=== PATIENT | male | born 1940 | race Caucasian/White ===

== ENCOUNTER 2022-08-23 13:27 | Outpatient (CLI) | payer MEDICARE, SELFPAY ==
--- NOTE | ~2022-08-23 | MR_ITS ---
EXAMINATION: MR brain/brain stem wo/w con DATE: 08/23/2022 16:11 INDICATION: Left hemiparesis. TECHNIQUE: Magnetic resonance imaging (MRI) of the brain and brainstem was performed without and with 15 mL MultiHance intravenous contrast. COMPARISON: None. FINDINGS: There is an acute infarct in the right medullary pyramid. There is an old infarct in left p arietal occipital region. There are scattered areas of nonspecific increased T2-weighted signal inten sity in the cerebral white matter and gio. There is no intracranial hemorrhage or abnormal mass lesi on. The ventricles are normal in size. There is mild mucosal thickening in the ethmoid sinuses. The o rbits are normal. The mastoid air cells are normal. IMPRESSION: 1. 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 2. 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 3. Mild nonspecific cerebral white matter disease and pontine disease, which likely represents chroni c small vessel ischemic disease. Reviewed, dictated and finalized at location A. AVEMENT PROGRAM COORDINATOR IMPRESSION: 1. 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 2. 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 3. Mild nonspecific cerebral white matter disease and pontine disease, which mega tamayo represents chronic small vessel ischemic disease.
--- NOTE | ~2022-08-23 | MR_ITS ---
EXAMINATION: MR cervical spine wo/w con DATE: 08/23/2022 16:11 INDICATION: Left hemiparesis. TECHNIQUE: Magnetic resonance imaging (MRI) of the cervical spine was performed without and with 15 m L MultiHance intravenous contrast. COMPARISON: None FINDINGS: There is 11 degrees dextroscoliosis of cervicothoracic spine. Vertebral body heights and in tervertebral disc heights are normal. The spinal cord signal intensity is normal. The following disc levels are specifically discussed: C2-C3: The disc does not extend beyond the endplate margin. There is no uncovertebral joint osteoarth ritis. There is mild bilateral facet joint osteoarthritis. There is no neural foraminal stenosis. The re is no central canal stenosis. C3-C4: The disc does not extend beyond the endplate margin. There is no uncovertebral joint osteoarth ritis. There is mild bilateral facet joint osteoarthritis. There is no neural foraminal stenosis. The re is no central canal stenosis. C4-C5: The disc does not extend beyond the endplate margin. There is no uncovertebral joint osteoarth ritis. There is mild bilateral facet joint osteoarthritis. There is no neural foraminal stenosis. The re is no central canal stenosis. C5-C6: There is a central protrusion. There is mild bilateral uncovertebral joint osteoarthritis. The re is mild bilateral facet joint osteoarthritis. There is mild left neural foraminal stenosis. There is no central canal stenosis. C6-C7: There is a central protrusion. There is mild right and moderate left uncovertebral joint osteo arthritis. There is mild left facet joint osteoarthritis. There is mild left neural foraminal stenosi s. There is mild central canal stenosis. C7-T1: The disc does not extend beyond the endplate margin. There is no uncovertebral joint osteoarth ritis. There is mild right and moderate left facet joint osteoarthritis. There is mild left neural fo raminal stenosis. There is no central canal stenosis. IMPRESSION: 1. Mild cervical spondylosis. 2. Cervicothoracic dextroscoliosis. Reviewed, dictated and finalized at location A. PATIONAL THERAPY ASSIST
== END 2022-08-23 13:28 | disposition home or self-care (01) ==
PROVIDERS: PCP Family Medicine; Visit Provider Psychiatry & Neurology Neurology
DX: I63.9 Cerebral infarction, unspecified (principal); M47.812 Spondylosis without myelopathy or radiculopathy, cervical region; M41.9 Scoliosis, unspecified
CPT/HCPCS: 70553; 72156; A9577

== ENCOUNTER 2023-05-09 10:31 | Outpatient (CLI) | payer MEDICARE, SELFPAY ==
--- NOTE | ~2023-05-09 | CT_ITS ---
CT Scan of the Chest without Contrast: Clinical Indication: Pulmonary nodules Technique: Contiguous sections were acquired throughout the chest without intravenous contrast. Dose reduction technique was used on this scan by utilizing automated exposure control and iterative recon struction technique. The dose-length product (DLP) was 154.40 mGy-cm. Findings: There is no evidence of any significant mediastinal, hilar or axillary lymphadenopathy. There are ath erosclerotic calcifications of the aorta. Patient is status post aortic valve replacement and possibl e CABG. Ascending aorta is mildly dilated to 4.5 cm. There is no evidence of pleural or pericardial effusion. 4 mm right lower lobe pulmonary nodule noted. 4 mm left lower lobe pulmonary nodules are present (axi al image 63). Images through the upper abdomen reveal small calcified gallstone. Impression: Subcentimeter pulmonary nodules, as above. According to Fleischner Society criteria, for a low-risk p atient, no further follow-up required. For a high-risk patient, consider 12 month follow-up CT. Ascending aortic aneurysm measures 4.5 cm in diameter. Status post aortic valve replacement and possible CABG. Cholelithiasis. Reviewed, dictated and finalized at location M. Impression: Subcentimeter pulmonary nodules, as above. According to Fleischner Society liv burks, for a low-risk patient, no further follow-up required. For a high-risk pa tient, consider 12 month follow-up CT. Ascending aortic aneurysm measures 4.5 cm in diameter. Status post aortic valve replacement and possible CABG. Cholelithiasis.
== END 2023-05-09 10:32 | disposition home or self-care (01) ==
PROVIDERS: PCP Family Medicine; Visit Provider Family Medicine
DX: R93.1 Abnormal findings on diagnostic imaging of heart and coronary circulation (principal); R91.8 Other nonspecific abnormal finding of lung field; R91.1 Solitary pulmonary nodule; I71.21 Aneurysm of the ascending aorta, without rupture; Z95.4 Presence of other heart-valve replacement; K80.20 Calculus of gallbladder without cholecystitis without obstruction
CPT/HCPCS: 71250

== ENCOUNTER 2024-11-05 10:40 | Outpatient (CLI) | payer MEDICARE, SELFPAY ==
--- NOTE | ~2024-11-05 | XR_ITS ---
EXAMINATION: XR chest 2V DATE: 11/05/2024 11:06 INDICATION: Cough TECHNIQUE: PA and lateral views of the chest were obtained. COMPARISON: Chest CT dated 05/09/2023 FINDINGS: The lungs are clear with no focal airspace opacities, pulmonary edema, pleural effusion or pneumothor ax. The cardiomediastinal silhouette is normal. Median sternotomy wires and mediastinal surgical clip s are seen, likely from prior coronary artery bypass grafting. Aortic valve repair. IMPRESSION: 1. No acute cardiopulmonary disease. Reviewed, dictated and finalized at location A. OLOGY RESIDENT
== END 2024-11-05 10:41 | disposition home or self-care (01) ==
PROVIDERS: PCP Family Medicine; Visit Provider Physician Assistant Medical
DX: R05.9 Cough, unspecified (principal); R09.89 Other specified symptoms and signs involving the circulatory and respiratory systems
CPT/HCPCS: 71046

== ENCOUNTER 2024-12-08 10:10 | Outpatient (CLI) | payer MEDICARE, SELFPAY ==
--- NOTE | ~2024-12-08 | CT_ITS ---
EXAMINATION:CT diagnostic chest wo con DATE: 12/08/2024 10:28 INDICATION: Right upper lobe lung consolidation. TECHNIQUE: Computed tomography (CT) of the chest was performed without intravenous contrast. Automate d exposure control and iterative reconstruction technique were employed. The dose-length product (DLP ) was 369.52 mGy-cm. COMPARISON: Chest CT 05/09/2023 FINDINGS: There is mild emphysema. There is chronic peripheral septal thickening in right lower lobe. There is mucous plugging in right lower lobe. There is a small area of groundglass opacities and adan e-in-bud opacities in right upper lobe. There is a 3 mm nodule in right upper lobe, likely benign. Th ere is a chronic 4 mm nodule in right lower lobe, likely benign. No pleural effusion. There is left a trial enlargement of the heart. There are coronary artery calcifications. 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 There are changes of aortic valve replacement. There is ectasia of ascendi ng aorta measuring 4.6 cm . There is mild bilateral gynecomastia. There is a gallstone in the gallbla dder, which is normal in size. There is a 3.1 cm cyst in left kidney. There is thoracic levoscoliosis . There is mild thoracic spondylosis. IMPRESSION: 1. Small area of groundglass opacities and tree-in-bud opacities in right upper lobe, consistent with inflammation/infection. 2. Mild emphysema. Reviewed, dictated and finalized at location A. HETIC RESIN OPERATOR
--- OUTSIDE RECORDS SUMMARY | 2024-12-08 11:48 | XMS_ITS | Clinical Summary ---
Author Organization [facility] Address [address] [place] [id number] Care Team Providers Care Fence Setter Name Role Phone Unavailable Primary Care Provider Unavailabl e Social History Tobacco Use Types Packs/Day Years Used Date Smoking Tobacco: Never Assessed Sex and Gender Information Value Date Recorded Sex Assigned at Not on file Legal Sex Male 4:53 PM CDT Gender Identity Not on file Sexual Orientation Not on file Plan of Treatment Health Maintenance Due Date Last Done Comments DTaP, Tdap and Td Vaccines ( 1 - Tdap) 1959 Zoster Vaccines (1 of 2) 1990 Pneumococcal Vaccine: 65+ Ye ars (1 of 1 - PCV) 2005 RSV Immunization or 60+ Years (1 - 1-dose 75+ series) 2015 COVID-19 Vaccine (2023-2 5 season) 2024 Influenza Adult (#1) 2024 Meningococcal B Vaccine Aged Out No l onger eligible based on patient's age to complete this topic Meningococcal Vaccine Aged Out No lenore lorraine eligible based on patient's age to complete this topic RSV Immunizations Under 20 Months Aged Out No longer eligible based on patient's age to complete this topic
--- OUTSIDE RECORDS SUMMARY | 2024-12-08 11:49 | XMS_ITS | Referral Summary ---
Author Organization [facility] Address [address] [place] [address] Care Team Providers Care Head Of Music Name Role Phone Fazal Davis MD Primary Care Provider [phone] Source Comments [facility] Affiliates and Associated Physician Practices is amultiple site organization consisting of ambulatory clinics and hospital sitesin [place], [place], [place] and [place]. This disclosure is being madepursuant to the Care Everywhere program and may not contain all information available regarding this patient. Last updated 18.[facility] [employer] Allergies Active Allergy Reactions Criticality Noted Date Comments Penicillin G Proc & Benzathine Rash Medium 03/26 Penicillins Rash Medium 04/09/2018 Medications * Be aware that medications may not be up to date on this document. Alwaysverify current medications with the patient. Medication Sig Dispensed Refills Start Date End Date Status rosuvastatin (CRESTOR) 20 MG tablet Take 1 (one) tablet by mouth once daily 03/16/2018 Active nitroGLYCERIN (NITROLINGUAL) 0.4 MG/SPRAY spray Dissolve 1 spray under the tongue every 5 minutes as needed for Angina Active ubiquinine/vitamin- e (COENZYME Q10) 200 MG capsule Take 200 mg by mouth once daily Active clopidogrel (plaVIX) 75 MG tablet Take 1 (one) tablet by mouth once daily Active aspirin EC (Ecotrin) 81 MG tablet Take 1 (one) tablet by mouth at bedtime Active Vitamin E (E200) 90 MG (200 UNIT) CAPS Take 1 (one) capsule by mouth at bedtime Active cyanocobalamin (Vitamin B-12) 1000 MCG tablet Take 1 (one) tablet by mouth at bedtime Active traMADol (Ultram) 50 MG tablet Take 1 (one) tablet by mouth every 8 hours as needed for Pain 8 tablet 09/05/2023 Active Additional Information Patient not taking.Reported on 09/16/2023 Active Problems Problem Noted Date Diagnosed Date Fall 09/05/2023 Scalp laceration 09/05/2023 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 Overview (02/27/2024): Last Assessment & Plan: Stable status post TAVR, asymptomatic. Continue same therapy. 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 Continue same therapy. Continue diet and exercise. Hypercholesteremia 01/06/2018 Overview (07/04/2021): Last Assessment & Plan: Lipids are well controlled. Continue high-intensity statin therapy. PVD (peripheral vascular disease) 01/06/2018 Overview (07/04/2021): Last Assessment & Plan: Stable claudication. As above, I resumed Plavix 75 mg daily. Otherwise, continue same therapy. Continue diet and exercise. Discontinue smoking. Chronic obstructive pulmonary disease 09/17/2016 Overview (07/04/2021): Chronic obstructive pulmonary disease, unspecified COPD type Last Assessment & Plan: Mild, has tried inhalers in the past and did not feel they benefitted him Will reassess one year, if breathing problems call us to reevaluate Yearly flu shot Multiple pulmonary nodules 09/17/2016 Overview (07/04/2021): 10/21/[address] All nodule stable All nodules 4 mm or less in size Last Assessment & Plan: 10/21/[address] All nodule stable All nodules 4 mm or less in size Nonrheumatic aortic valve stenosis 01/03/2016 Overview (07/04/2021): Aortic stenosis, non-rheumatic Last Assessment & Plan: Stable, moderate aortic stenosis only. Continue same therapy. 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 I made no change in his excellent medical regimen today, except to resume Plavix 75 mg daily and I decreased aspirin to 81 mg daily. I asked him to follow up with me annually, or sooner if needed. I again advised him to diet and exercise regularly, and to stop smoking completely. Resolved Problems Problem Noted Date Diagnosed Date Resolved Date Unsteady gait 09/10/2022 09/10/2022 Immunizations Name Administration Dates Next Due TDAP (7yrs+) 09/05/2023 Social History Tobacco Use Types Packs/Day Years Used Date Smoking Tobacco: Every Day Cigarettes Smokeless Tobacco: Never Tobacco Cessation:Ready to Q uit: Not Asked; Counseling Given: Not Answered Alcohol Use Standard Drinks/Week Comments No 0 (1 standard drink = 0.6 oz pur e alcohol) AUDIT-C Answer Date Recorded Q1: How often do you have a drink containing alcohol? Never 09/05/2023 Q2: How many drinks containi ng alcohol do you have on a typical day when you are drinking? Patient does not drink Q3: How often do you have si x or more drinks on one occasion? Never 09/05/2023 PHQ-2 Answer Date Recorded Patient Health Questionnaire-2 Score 0 09/16/2023 Sex and Gender Information Value Date Recorded Sex Assigned at Not on file Gender Identity Not on file Sexual Orientation Not on file Last Filed Vital Signs Vital Sign Reading Time Taken Comments Blood Pressure 124/64 09/16/2023 12:26 PM UNDERWRITING MANAGER Pulse 58 09/16/2023 12:26 PM UNDERWRITING MANAGER Temperature 36.5 C (97.7 F) 09/05/2023 2:28 PM UNDERWRITING MANAGER Respiratory Rate 18 09/05/2023 2:28 PM UNDERWRITING MANAGER Oxygen Saturation 95% 09/16/2023 12:26 PM UNDERWRITING MANAGER Inhaled Oxygen Concentration - - Weight 82.8 kg (182 lb 9.6 oz) 09/16/2023 12:26 PM UNDERWRITING MANAGER Height 172.7 cm (5' 8 ) 09/05/2023 2:28 PM UNDERWRITING MANAGER Body Mass Index 27.76 09/05/2023 2:28 PM UNDERWRITING MANAGER Plan of Treatment Not on file Care Teams Head Of Music Relationship Specialty Start Date End Date Fazal Davis MD [address] [place] [address] PCP - General 03/12/18
--- OUTSIDE RECORDS SUMMARY | 2024-12-08 11:49 | XMS_ITS | Patient Health Summary ---
Author Organization [facility] Address [address] [place] [address] Care Team Providers Care Fryer Operator Name Role Phone Fazal Davis MD Primary Care Provider [phone] Note from [facility],non-owned Affiliates and Associated Physician Practices is amultiple site organization consisting of ambulatory clinics and hospital sitesin [place], [place], [place] and [place]. This disclosure is being madepursuant to the Care Everywhere program and may not contain all information available regarding this patient. Last updated 18.[facility] Allergies * Penicillin G Proc & Benzathine(Rash) -Medium Criticality * Penicillins(Rash) -Medium Criticality Medications * Be aware that medications may not be up to date on this document. Alwaysverify current medications with the patient. * rosuvastatin (CRESTOR) 20 MG tablet(Started 03/16/2018) Take 1 (one) tablet by mouth once daily * nitroGLYCERIN (NITROLINGUAL) 0.4 MG/SPRAY spray Dissolve 1 spray under the tongue every 5 minutes as needed for Angina * ubiquinine/vitamin-e (COENZYME Q10) 200 MG capsule Take 200 mg by mouth once daily * clopidogrel (plaVIX) 75 MG tablet Take 1 (one) tablet by mouth once daily * aspirin EC (Ecotrin) 81 MG tablet Take 1 (one) tablet by mouth at bedtime * Vitamin E (E200) 90 MG (200 UNIT) CAPS Take 1 (one) capsule by mouth at bedtime * cyanocobalamin (Vitamin B-12) 1000 MCG tablet Take 1 (one) tablet by mouth at bedtime * traMADol (Ultram) 50 MG tablet(Started 09/05/2023) Take 1 (one) tablet by mouth every 8 hours as needed for Pain Active Problems Problem Noted Date Diagnosed Date Fall 09/05/2023 Scalp laceration 09/05/2023 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 Cerebral infarction, unspecified 09/10/2022 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 05/22/2019 Essential hypertension, benign 01/06/2018 Hypercholesteremia 01/06/2018 PVD (peripheral vascular disease) 01/06/2018 Chronic obstructive pulmonary disease 09/17/2016 Multiple pulmonary nodules 09/17/2016 Nonrheumatic aortic valve stenosis 01/03/2016 Tobacco dependence syndrome 08/24/2015 Mediastinal lymphadenopathy 08/24/2015 Coronary arteriosclerosis in [place] artery 01/22 Resolved Problems Problem Noted Date Diagnosed Date Resolved Date Unsteady gait 09/10/2022 09/10/2022 Immunizations * TDAP (7yrs+)(Given 09/05/2023) Social History Tobacco Use Types Packs/Day Years [...] Comments Blood Pressure 124/64 09/16/2023 12:26 PM DATA PROCESSING SUPERVISOR Pulse 58 09/16/2023 12:26 PM DATA PROCESSING SUPERVISOR Temperature 36.5 C (97.7 F) 09/05/2023 2:28 PM DATA PROCESSING SUPERVISOR Respiratory Rate 18 09/05/2023 2:28 PM DATA PROCESSING SUPERVISOR Oxygen Saturation 95% 09/16/2023 12:26 PM DATA PROCESSING SUPERVISOR Inhaled Oxygen Concentration - - Weight 82.8 kg (182 lb 9.6 oz) 09/16/2023 12:26 PM DATA PROCESSING SUPERVISOR Height 172.7 cm (5' 8 ) 09/05/2023 2:28 PM DATA PROCESSING SUPERVISOR Body Mass Index 27.76 09/05/2023 2:28 PM DATA PROCESSING SUPERVISOR Procedures * PROC EXCISION LESION TRUNK ARM LEG MALIG(Performed 02/27/2024) Performed for Basal cell carcinoma (BCC) of right forearm, Basal cell carcinoma (BCC) of right upper arm * MA EXC SKIN MALIG 2.1-3CM TRUNK,ARM,LEG(Performed 02/27/2024) Performed for Basal cell carcinoma (BCC) of right forearm * MA INTMD WND REPAIR TRUNK,ARM,LEG 7.6-12.5(Performed 02/27/2024) Performed for Basal cell carcinoma (BCC) of right forearm * MA EXC SKIN MALIG 2.1-3CM TRUNK,ARM,LEG(Performed 02/27/2024) Performed for Basal cell carcinoma (BCC) of right forearm * DERMATOPATHOLOGY(Performed 02/27/2024) Performed for Basal cell carcinoma (BCC) of right forearm, Basal cell carcinoma (BCC) of right upper arm * CT CERVICAL SPINE WO CONTRAST(Performed 09/05/2023) Performed for Fall, initial encounter * CT HEAD WO CONTRAST(Performed 09/05/2023) Performed for Fall, initial encounter * ED LACERATION REPAIR(Performed 09/05/2023) Performed for Laceration of scalp, initial encounter * MA CHMSRG MOHS MG TQ H/N/H/F/G 1ST STAG 5 BLOC(Performed 12/11/2022) Performed for Basal cell carcinoma (BCC) of right postauricular region * MA CHMSRG MOHS MG TQ H/N/H/F/G EA ADDL STAG(Performed 12/11/2022) Performed for Basal cell carcinoma (BCC) of right postauricular region * MA REPR CMPL WND HEAD,FAC,HAND 2.6-7.5(Performed 12/11/2022) Performed for Basal cell carcinoma (BCC) of right postauricular region * MA CHMSRG MOHS MG TQ H/N/H/F/G 1ST STAG 5 BLOC(Performed 05/01/2022) Performed for 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 hand * MA REPR CMPL WND HEAD,FAC,HAND 2.6-7.5(Performed 05/01/2022) Performed for 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 hand * MA CHMSRG MOHS MG TQ H/N/H/F/G 1ST STAG 5 BLOC(Performed 04/18/2022) Performed for Basal cell carcinoma (BCC) of crown * CBC W AUTO DIFFERENTIAL(Performed 01/20/2022) Performed for Vertigo * COMPREHENSIVE METABOLIC PANEL(Performed 01/20/2022) Performed for Vertigo * MA EXC SKIN MALIG 2.1-3CM REMAINDR BODY(Performed 09/12/2021) Performed for Melanoma of scalp (HCC) * DERMATOPATHOLOGY(Performed 09/12/2021) Performed for Melanoma of scalp (HCC) * MA CHMSRG MOHS MG TQ H/N/H/F/G 1ST STAG 5 BLOC(Performed 08/30/2021) 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 * MA CHMSRG MOHS MG TQ H/N/H/F/G EA ADDL STAG(Performed 08/30/2021) 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 * MA FULL THICK GRFT NOS,EAR,LID <20SQCM(Performed 08/30/2021) 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 * MA EXC SKIN MALIG 3.1-4CM FACE,FACIAL(Performed 08/29/2021) Performed for Melanoma of scalp (HCC) * PROC EXCISION SKIN FACE FACIAL MALIGNANT(Performed 08/29/2021) Performed for Melanoma of scalp (HCC) * DERMATOPATHOLOGY(Performed 08/29/2021) Performed for Melanoma of scalp (HCC) * PATHOLOGY/CYTOLOGY REPORT ORDER(Performed 08/29/2021) * CULTURE AEROBIC(Performed 07/21/2021) 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 * MA CHMSRG MOHS MG TQ H/N/H/F/G 1ST STAG 5 BLOC(Performed 07/11/2021) Performed for Basal cell carcinoma (BCC) of left side of neck * MA REPR CMPL WND HEAD,FAC,HAND 2.6-7.5(Performed 07/11/2021) Performed for Basal cell carcinoma (BCC) of left side of neck * CULTURE AEROBIC(Performed 07/11/2021) Performed for Basal cell carcinoma (BCC) of left side of neck * MA CHMSRG MOHS MG TQ H/N/H/F/G 1ST STAG 5 BLOC(Performed 07/04/2021) 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 * MA CHMSRG MOHS MG TQ H/N/H/F/G EA ADDL STAG(Performed 07/04/2021) 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 * DERMPATH SLIDE CONSULT(Performed 06/15/2021) * MA CHMSRG MOHS MG TQ H/N/H/F/G 1ST STAG 5 BLOC(Performed 09/28/2020) Performed for Basal cell carcinoma (BCC) of neck * MA CHMSRG MOHS MG TQ H/N/H/F/G EA ADDL STAG(Performed 09/28/2020) Performed for Basal cell carcinoma (BCC) of neck * MA REPR CMPL WND HEAD,FAC,HAND 2.6-7.5(Performed 09/28/2020) Performed for Basal cell carcinoma (BCC) of neck * SARS-COV-2 (COVID-19) IN HOUSE(Performed 09/11/2020) Performed for Upper respiratory tract infection, unspecified type * SARS-COV-2 (COVID-19) PANEL (SOIL)(Performed 09/11/2020) Performed for Upper respiratory tract infection, unspecified type * MA CHMSRG MOHS MG TQ H/N/H/F/G 1ST STAG 5 BLOC(Performed 09/05/2020) Performed for Squamous cell carcinoma of skin of other parts of face , Squamous cell carcinoma of skin * MA CHMSRG MOHS MG TQ H/N/H/F/G EA ADDL STAG(Performed 09/05/2020) Performed for Squamous cell carcinoma of skin of other parts of face , Squamous cell carcinoma of skin * MA REPR CMPL WND HEAD,FAC,HAND 2.6-7.5(Performed 09/05/2020) Performed for Squamous cell carcinoma of skin of other parts of face , Squamous cell carcinoma of skin * MA CHMSRG MOHS MG TQ H/N/H/F/G 1ST STAG 5 BLOC(Performed 05/19/2019) Performed for Basal cell carcinoma (BCC) of left ear * MA FULL THICK GRFT NOS,EAR,LID <20SQCM(Performed 05/19/2019) Performed for Basal cell carcinoma (BCC) of left ear * DERMPATH SLIDE CONSULT(Performed 09/23/2018) * MA CHMSRG MOHS MG TQ H/N/H/F/G 1ST STAG 5 BLOC(Performed 09/22/2018) Performed for Squamous cell carcinoma of skin of helix, left * MA CHMSRG MOHS MG TQ H/N/H/F/G EA ADDL STAG(Performed 09/22/2018) Performed for Squamous cell carcinoma of skin of helix, left * MA FULL THICK GRFT NOS,EAR,LID <20SQCM(Performed 09/22/2018) Performed for Squamous cell carcinoma of skin of helix, left * MA REPR CMPL WND HEAD,FAC,HAND 2.6-7.5(Performed 04/18/2018) Performed for Basal cell carcinoma of left cheek * MA CHMSRG MOHS MG TQ H/N/H/F/G 1ST STAG 5 BLOC(Performed 04/18/2018) Performed for Basal cell carcinoma of left cheek * DERMATOPATHOLOGY(Performed 03/08/2016) * PATHOLOGY/GENETICS HISTORICAL-ONBASE(Performed 04/13/2011) * DERMATOPATHOLOGY(Performed 03/23/2011) Results * PROC EXCISION LESION TRUNK ARM LEG MALIG (02/27/2024 2:17 PM CDT) [facility] Kendra Underwood MD - 02/27/2024 2:17 PM CDT Kendra Underwood MD 02/28/2024 4:55 PM Elliptical Excision with Intermediate Closure Date of Service: 02/27/2024 Tumor Type: Basal cell carcinoma Location: Right distal tricep Derm-Path Lesion Size: 1.5 X 1.5 cm Repair Type: intermediate Repair Size: 5.2 cm Suture Material: 4-0 monocryl and 4-0 PDS Level of Defect: adipose Surgical Margins: 0.5 Primary Surgeon: Kendra Underwood MD Automatic Teller Machine Servicer: N/A INDICATIONS: The risks of bleeding, infection, discomfort, incomplete removal, and scar formation were explained to the patient. All questions were answered. After informed consent, confirmation of site and identity, and appropriate instructions, the patient underwent the procedure as follows: PROCEDURE: With the patient in a supine position, the lesion was outlined with 0.5 cm margins measuring 2.5 x 2.5 cm. An ellipse was designed around the lesion to conform to relaxed skin tension lines in an effort to minimize scarring and deformity. The patient was then positioned on the table. The lesion and surrounding skin were prepped with chlorhexidine, draped, and anesthetized with 1% lidocaine with epinephrine 1:100,100 buffered with 1:10 sodium bicarbonate. Using a #15 blade the skin was excised along premarked lines. The resulting defect extended to adipose. Wound margins were undermined to limit functional deformity/impairment of adjacent structures. Bleeding vessels were controlled with monopolar electrocoagulation. The dermis and subcutaneous tissue were closed with buried vertical mattress sutures. Epidermal approximation was meticulously refined with 4-0 monocryl sutures, resulting in a linear closure with little to no wound tension. Blood loss was estimated to be less than 5cc. The area was coated with petrolatum and covered with a non-adherent dressing followed by gauze and tape. Postoperative instructions were reviewed per protocol. The patient left alert and fully oriented. The attending physician was present and always immediately available. No postoperative medications were prescribed. The patient will follow up with their primary underwriting technician. Dr. Underwood performed the entire surgery, and documentation used to initiate this operative report. I entered the information in our [employer] DocFlowsheet with the information provided by Dr. Underwood on her handwritten, paper format, surgical worksheet, which was then used to initiate the create of this note. Dr. Underwood then reviewed and edited the note as needed to complete the note. Mercedes Plascencia MA I have reviewed the note, edited it as necessary and performed the entire procedure. Kendra Underwood MD Classroom Technology Coach 02/27/2024 Kendra Underwood MD PROCEDURE/MINOR SURG ICAL ORDERABLES * MA EXC SKIN MALIG 2.1-3CM TRUNK,ARM,LEG, MA INTMD WND REPAIR TRUNK,ARM,LEG 7.6-12.5, MA EXC SKIN MALIG 2.1-3CM TRUNK,ARM,LEG (02/27/2024 1:40 PM CDT) Narrative Kendra Underwood MD - 02/27/2024 1:40 PM CDT Kendra Underwood MD 02/28/2024 4:56 PM Elliptical Excision with Intermediate Closure Date of Service: 02/27/2024 Tumor Type: Basal cell carcinoma Location: Right prox. Dorsal forearm Derm-Path Lesion Size: 1.2 X 1.2 cm Repair Type: intermediate Repair Size: 5.5 cm Suture Material: 4-0 monocryl and 4-0 PDS Level of Defect: adipose Surgical Margins: 0.5 Primary Surgeon: Kendra Underwood MD Automatic Teller Machine Servicer: N/A INDICATIONS: The risks of bleeding, infection, discomfort, incomplete removal, and scar formation were explained to the patient. All questions were answered. After informed consent, confirmation of site and identity, and appropriate instructions, the patient underwent the procedure as follows: PROCEDURE: With the patient in a supine position, the lesion was outlined with 0.5 cm margins measuring 2.2 x 2.2 cm. An ellipse was designed around the lesion to conform to relaxed skin tension lines in an effort to minimize scarring and deformity. The patient was then positioned on the table. The lesion and surrounding skin were prepped with chlorhexidine, draped, and anesthetized with 1% lidocaine with epinephrine 1:100,100 buffered with 1:10 sodium bicarbonate. Using a #15 blade the skin was excised along premarked lines. The resulting defect extended to adipose. Wound margins were undermined to limit functional deformity/impairment of adjacent structures. Bleeding vessels were controlled with monopolar electrocoagulation. The dermis and subcutaneous tissue were closed with buried vertical mattress sutures. Epidermal approximation was meticulously refined with 4-0 monocryl sutures, resulting in a linear closure with little to no wound tension. Blood loss was estimated to be less than 5cc. The area was coated with petrolatum and covered with a non-adherent dressing followed by gauze and tape. Postoperative instructions were reviewed per protocol. The patient left alert and fully oriented. The attending physician was present and always immediately available. No postoperative medications were prescribed. The patient will follow up with their primary underwriting technician. Dr. Underwood performed the entire surgery, and documentation used to initiate this operative report. I entered the information in our Epic DocFlowsheet with the information provided by Dr. Underwood on her handwritten, paper format, surgical worksheet, which was then used to initiate the create of this note. Dr. Underwood then reviewed and edited the note as needed to complete the note. Mercedes Plascencia MA I have reviewed the note, edited it as necessary and performed the entire procedure. Kendra Underwood MD Classroom Technology Coach 02/27/2024 Kendra Underwood MD PROCEDURE/MINOR SURG ICAL ORDERABLES * DERMATOPATHOLOGY (02/27/2024 1:19 PM CDT) Only the most recent of5 resultswithin the time period is included. Case Report Dermatopathology Report Case: [id number] Authorizing Provider: Kendra Underwood MD Collected: 02/27/2024 01:19 PM Ordering Location: [facility] - Received: 02/28/2024 11:41 AM Dermatology Pathologist: Amparo Lorenzo MD Specimens: A) - Skin, right dorsal forearm B) - Skin, right distal tricep 1:47 PM CDT DERMATOPATHOLOGY LABORATORY Final Diagnosis Specimen A. SKIN, right dorsal forearm: SQUAMOUS PROLIFERATION, NOT PRESENT AT MARGIN (D48.5) DERMAL SCAR RESIDUAL BASAL CELL CARCINOMA NOT IDENTIFIED (L90.5) (see microscopic description and comment) Specimen B. SKIN, right distal tricep: BASAL CELL CARCINOMA, KERATOTIC TYPE (C44.612) NOT PRESENT AT MARGIN HEALING SKIN CHANGES AND DERMAL SCAR (L90.5) (see microscopic description and comment) 1:47 PM CDT DERMATOPATHOLOGY LABORATORY Clinical History A: r/o BCC vs. Scar. Check margins, prior biopsy. B: r/o BCC. Check margins, prior biopsy. 1:47 PM CDT DERMATOPATHOLOGY LABORATORY Gross Description Specimen A: Received is one formalin filled container labeled with the patient's name and designated right dorsal forearm.The specimen consists of an ellipse measuring [id number] mm and is oriented with the suture/notch at the 12 o'clock position labeled on the requisition. The 12 to 6 o'clock margin is inked green. The 6 o'clock to 12 o'clock margin is inked red. The 12 o'clock tip is submitted in cassette 1. The 6 o'clock tip is submitted in cassette 2. The remainder of the ellipse is serially sectioned and submitted in cassettes 3-4. Jar 0. Specimen B: Received is one formalin filled container labeled with the patient's name and designated right distal tricep.The specimen consists of an ellipse measuring [id number] mm and is oriented with the suture/notch at the 12 o'clock position labeled on the requisition. The 12 to 6 o'clock margin is inked green. The 6 o'clock to 12 o'clock margin is inked red. The 12 o'clock tip is submitted in cassette 1. The 6 o'clock tip is submitted in cassette 2. The remainder of the ellipse is serially sectioned and submitted in cassettes 3-4. Jar 0. 4 1:47 PM CDT DERMATOPATHOLOGY LABORATORY Microscopic Description Specimen A. SKIN, right dorsal forearm: Sections show maturational disarray and nuclear pleomorphism of intraepidermal keratinocytes extending throughout the epidermis in association with scar. Focal endophytic features are present. There is focal parakeratosis. These changes are not present at the margin of the specimen. There are fibroblasts and collagen bundles oriented parallel to the skin surface with elongated blood vessels, some of which are oriented perpendicular to the skin surface. No basal cell carcinoma is identified. COMMENT: The prior biopsy is unavailable for review. These histologic features can be seen in the setting of healing skin changes with focal tangential sectioning; however, a squamous cell carcinoma cannot be excluded. This specimen was also reviewed by Dr. Zuleyma Bailey, who agrees. Specimen B. SKIN, right distal tricep: The dermis is infiltrated by nests of basaloid cells that show peripheral palisading and are associated with fibromyxoid stroma. Both mitotic figures and necrotic cells are identified. There are also areas with squamous differentiation and keratinization within the nests. This lesion is not present at the margin of the specimen. There is epidermal hyperplasia beneath which there are vascular proliferation, fibroblasts, and an edematous stroma. There are fibroblasts and collagen bundles oriented parallel to the skin surface with elongated blood vessels, some of which are oriented perpendicular to the skin surface. COMMENT: The prior biopsy is unavailable for review. 4 1:47 PM CDT DERMATOPATHOLOGY LABORATORY Disclaimer An external and internal positive and negative controls are appropriate for the histochemical, immunohistochemical and immunofluorescence stain(s) in this case (if any), except where stated explicitly. The performance characteristics of the stain(s) cited in this report were developed and its performance characteristic determined by the Dermatopathology Laboratory at [facility], directed by Dr. Juan Song. These tests need not be, and therefore are not, approved by the [place] Food and Drug Administration. The tests are used for clinical purposes. Billing Codes Specimen Charges Stain Charges 98082 [id number] 1 1 4 1:47 PM CDT DERMATOPATHOLOGY LABORATORY Embedded Images 4 1:47 PM CDT DERMATOPATHOLOGY LABORATORY Pathology/Cytology TISSUE SPECIMEN FROM SKIN / Unknown 02/27/2024 1:19 PM CDT 02/28/2024 11:41 AM CDT Miscellaneous samples (specimen) TISSUE SPECIMEN FROM SKIN / Unknown 02/27/2024 1:19 PM CDT 02/28/2024 11:41 AM CDT Kendra Underwood MD LAB - PATHOLOGY/CYTO LOGY ORDERABLES DERMATOPATHOLOGY LABORATORY [facility] - Department of Dermatology [address], [address] [phone] * CT CERVICAL SPINE WO CONTRAST (09/05/2023 3:20 PM DATA PROCESSING SUPERVISOR) Anatomical Region Laterality Modality Spine Computed Tomogra phy 09/05/2023 3:38 PM DATA PROCESSING SUPERVISOR Impressions 09/05/2023 3:39 PM DATA PROCESSING SUPERVISOR IMPRESSION: Degenerative changes. No fracture or cord compression. > Interpreting Provider: Gregg Bonilla MD on 09/05/2023 3:39 PM Narrative 09/05/2023 3:39 PM DATA PROCESSING SUPERVISOR PROCEDURE: CT CERVICAL SPINE WO CONTRAST 09/05/2023 3:38 PM HISTORY: [id number].XXXA: Unspecified fall, initial encounter. FINDINGS AND IMPRESSION: COMPARISON: No comparison. CT dose reduction technique was utilized. No acute fracture, dislocation or destructive process. No evidence of canal stenosis or cord compression. C1-C2 articulation is unremarkable. Pedicles and paraspinal soft tissue structures are normal. Prevertebral soft tissue structures appear unremarkable. Multilevel facet degeneration. Multilevel foraminal stenosis. Cervical spondylosis. Normal lung apices. Procedure Note Gregg Bonilla MD - 09/05/2023 PROCEDURE: CT CERVICAL SPINE WO CONTRAST 09/05/2023 3:38 PM HISTORY: [id number]: Unspecified fall, initial encounter. FINDINGS AND IMPRESSION: COMPARISON: No comparison. CT dose reduction technique was utilized. No acute fracture, dislocation or destructive process. No evidence of canal stenosis or cord compression. C1-C2 articulation is unremarkable. Pedicles and paraspinal soft tissue structures are normal. Prevertebral soft tissue structures appear unremarkable. Multilevel facet degeneration. Multilevel foraminal stenosis. Cervical spondylosis. Normal lung apices. IMPRESSION: Degenerative changes. No fracture or cord compression. > Interpreting Provider: Gregg Bonilla MD on 09/05/2023 3:39 PM Jocy Smith Suzan [facility] CT ORDERABLES * CT HEAD WO CONTRAST (09/05/2023 3:19 PM DATA PROCESSING SUPERVISOR) Anatomical Region Laterality Modality Head Computed Tomogra phy 09/05/2023 3:37 PM DATA PROCESSING SUPERVISOR Impressions 09/05/2023 3:37 PM DATA PROCESSING SUPERVISOR IMPRESSION: Senescent changes No acute process. > Interpreting Provider: Gregg Bonilla MD on 09/05/2023 3:37 PM Narrative 09/05/2023 3:37 PM DATA PROCESSING SUPERVISOR PROCEDURE: CT HEAD WO CONTRAST 09/05/2023 3:37 PM HISTORY: [id number].XXXA: Unspecified fall, initial encounter. FINDINGS AND IMPRESSION: COMPARISON: No comparison. Radiation dose reduction technique was utilized. FINDINGS: No acute intracranial hemorrhage, midline shift, or mass effect. No extra-axial fluid collection is identified. Brainstem and cerebellum appear unremarkable. Posterior cranial fossa and CP angles are normal. No evidence of hydrocephalus. Brain atrophy Small vessel disease Intracranial vascular calcifications. No calvarial abnormalities noted. Visualized portions of paranasal sinuses, orbits and mastoid air cells appear unremarkable. Procedure Note Gregg Bonilla MD - 09/05/2023 PROCEDURE: CT HEAD WO CONTRAST 09/05/2023 3:37 PM HISTORY: [id number].XXXA: Unspecified fall, initial encounter. FINDINGS AND IMPRESSION: COMPARISON: No comparison. Radiation dose reduction technique was utilized. FINDINGS: No acute intracranial hemorrhage, midline shift, or mass effect. No extra-axial fluid collection is identified. Brainstem and cerebellum appear unremarkable. Posterior cranial fossa and CP angles are normal. No evidence of hydrocephalus. Brain atrophy Small vessel disease Intracranial vascular calcifications. No calvarial abnormalities noted. Visualized portions of paranasal sinuses, orbits and mastoid air cells appear unremarkable. IMPRESSION: Senescent changes No acute process. > Interpreting Provider: Gregg Bonilla MD on 09/05/2023 3:[address] ORDERABLES * Laceration Repair (09/05/2023 2:57 PM DATA PROCESSING SUPERVISOR) Narrative Burke Cespedes MD - 09/05/2023 2:57 PM DATA PROCESSING SUPERVISOR Jocy Mares APRN-CNP 09/05/2023 4:17 PM Laceration Repair Date/Time: 09/05/2023 2:57 PM Performed by: Jocy Mares APRN-CNP Authorized by: Jocy Mares APRN-CNP Consent: Consent obtained: Verbal Consent given by: Patient Risks, benefits, and alternatives were discussed: yes Risks discussed: Infection, need for additional repair, nerve damage, poor wound healing, poor cosmetic result, pain, retained foreign body, tendon damage and vascular damage Alternatives discussed: No treatment, delayed treatment, observation and referral [place] protocol: Procedure explained and questions answered to patient or proxy's satisfaction: yes Relevant documents present and verified: yes Test results available: yes Imaging studies available: yes Required blood products, implants, devices, and special equipment available: no Site/side marked: yes Immediately prior to procedure, a time out was called: yes Patient identity confirmed: Verbally with patient and arm band Anesthesia: Anesthesia method: None Laceration details: Location: Scalp Scalp location: Frontal Length (cm): 6 Pre-procedure details: Preparation: Patient was prepped and draped in usual sterile fashion and imaging obtained to evaluate for foreign bodies Exploration: Limited defect created (wound extended): no Hemostasis achieved with: Direct pressure Imaging obtained: x-ray Imaging outcome: foreign body not noted Wound exploration: wound explored through full range of motion and entire depth of wound visualized Wound extent: no foreign bodies/material noted, no muscle damage noted, no nerve damage noted, no tendon damage noted, no underlying fracture noted and no vascular damage noted Contaminated: no Treatment: Area cleansed with: Povidone-iodine and saline Amount of cleaning: Standard Irrigation solution: Sterile saline Irrigation method: Pressure wash and syringe Visualized foreign bodies/material removed: no Debridement: None Undermining: None Scar revision: no Skin repair: Repair method: [place] Number of christos: 5 Approximation: Approximation: Close Repair type: Repair type: Simple Post-procedure details: Dressing: Non-adherent dressing Procedure completion: Tolerated well, no immediate complications Jocy Mares SENIOR DRAFTER-SHORER PROCEDURE/MINOR SURGICAL ORDERABLES * MA REPR CMPL WND HEAD,FAC,HAND 2.6-7.5, MA CHMSRG MOHS MG TQ H/N/H/F/G EA ADDL STAG, MA CHMSRG MOHSMG TQ H/N/H/F/G 1ST STAG 5 BLOC (12/11/2022 1:23 PM DATA PROCESSING SUPERVISOR) Narrative Kendra Underwood MD - 12/11/2022 1:23 PM DATA PROCESSING SUPERVISOR Kendra Underwood MD 12/11/2022 4:41 PM Mohs Micrographic Surgery Operative Note Procedure: Mohs micrographic surgery Date of service: 12/11/2022 Location: right inferior mastoid Preop diagnosis: Basal cell carcinoma Postop diagnosis: Basal cell carcinoma Mohs AUC score: 8 Number of stages: 2 Preop size: 0.5x0.5 cm Postop size: 1.5x2.6 cm Depth of final defect: adipose Previous dermpath accession #: [id number] Repair type: complex Mohs accession #: [id number] Surgeon and Pathologist: Kendra Underwood MD served as both surgeon and pathologist. No other physician was involved in the cancer removal or pathology interpretation. Assistants: N/A Indications for Mohs Surgery Removal of the patient's tumor is complicated by the following clinical features: Clinical area critical for tissue conservation (Area M: cheeks, forehead, scalp, neck, jawline, pretibial surface). Based on my medical judgement, Mohs surgery is the most appropriate treatment for this cancer compared to other treatments. I discussed alternative treatments to Mohs surgery and specifically discussed the risks and benefits of curettage, excision with permanent sections, and foregoing treatment. The rationale for Mohs was explained to the patient and consent was obtained. The risks, benefits and alternatives to therapy were discussed in detail. Specifically, the risks of infection, scarring, bleeding, prolonged wound healing, incomplete removal, allergy to anesthesia, nerve injury and recurrence were addressed. Prior to the procedure, the treatment site was clearly identified and confirmed by the patient. All components of [place] Protocol/PAUSE Rule completed. STAGE I: The patient was placed on the operating table. The cancer was identified and outlined. The entire surgical field was prepped with hibiclens. The surgical site was anesthetized using Lidocaine 1% with epinephrine 1:100,000 buffered with sodium bicarbonate 8.4% in a 1:10 ratio.The area of clinically apparent tumor was debulked with a 2 mm curette. The layer of tissue was then surgically excised using a #15 blade and was then transferred onto a specimen sheet maintaining the orientation of the specimen. Hemostasis was obtained using monopolar electrodesiccation. The wound site was then covered with a dressing while the tissue samples were processed for examination. The specimen was oriented, mapped and divided. Each section was then inked and processed in the Mohs lab using the Mohs protocol and submitted for frozen section. The histopathologic sections were reviewed by the surgeon in conjunction with the reference map. Total blocks: 1 Total slides: 3 Frozen sections were examined by the surgeon and revealed residual tumor. Tumor was indicated in red on the reference map. Cell morphology: basaloid nests with peripheral palisading and abundant mucin (nodular BCC) Pathological pattern: Basal cell carcinoma, nodular Depth of invasion: Dermis Scar tissue: Not Present Perineural invasion: Not Present Inflammation obscuring possible tumor presence: Not Present STAGE II: The patient was prepped in the same fashion as the first stage. Using a similar technique to that described above, a thin layer of tissue was removed from all areas where tumor was visible on the previous stage. The tissue was again oriented, mapped, dyed, and processed as above. Histopathologic sections were reviewed in conjunction with the reference map. Total blocks: 1 Total slides: 2 Frozen sections were examined by the surgeon and revealed: No additional tumor. Histology: No malignant cells seen in the sections examined. No additional histologic findings appreciated. Severiano [facility] CLIA # [id number] Mohs Ash Collector: Kendra Underwood MD REPAIR: Complex Primary Surgeon: Kendra Underwood MD Automatic Teller Machine Servicer: Chapo Cao MD Repair Size: 4.8 cm Sutures: 4-0 monocryl,5.0 fast absorbing gut Width of underminin.8 cm Free margin of the nostrils, helical rim, or vermilion lip involved: NO Presence of exposed bone/cartilage/tendon/named neurovascular structure: NO Use of retention sutures: NO Indication for complex repair: Complex repair was performed because inelasticity of skin made closure difficult, to avoid a deforming, depressed, and contracted scar, to minimize free margin distortion risk, and to preserve the functional anatomy. The defect was identified and a marking pen was used to plan the repair. The area was infiltrated with Lidocaine 1% with epinephrine 1:100,000 buffered with sodium bicarbonate 8.4% in a 1:10 ratio, prepped with iodine and draped with sterile towels. The wound was debeveled. Extensive undermining was performed to a distance of at least 2.6 cm (defect width perpendicular to closure is 2.6 cm) along one edge of the entire surgical defect. Cones were excised within relaxed skin tension lines on both sides of the defect. Hemostasis was obtained using monopolar electrodesiccation. The dermis and subcutaneous tissue were then approximated using buried vertical mattress sutures. Percutaneous simple running sutures were carefully placed for maximum eversion and meticulous wound edge approximation. Careful attention was paid to avoid distorting any nearby free margins. The wound was cleansed with saline and ointment was applied along the wound surface. A sterile pressure dressing was applied. Wound care instructions were given verbally and in writing. The patient left the operating suite in stable condition. Patient was informed that additional refinement of the resulting surgical scar may be used as a second stage of this reconstruction. Dr. Underwood performed the shay portions of the surgery, and documentation used to initiate this operative report. I entered the information in our [employer] DocFlowsheet with the information provided by Dr. Underwood on her handwritten, paper format, surgical worksheet, which was then used to initiate the create of this note. Dr. Underwood then reviewed and edited the note as needed to complete the note. Temitope Sanderson WAIST FITTER I have reviewed the note, edited it as necessary and performed the entire Mohs procedure and shay portions of the reconstruction. Kendra Underwood MD Automation Clerk 12/11/2022 Kendra Underwood MD PROCEDURE/MINOR SURG ICAL ORDERABLES * MA REPR CMPL WND HEAD,FAC,HAND 2.6-7.5, MA CHMSRG MOHS MG TQ H/N/H/F/G 1ST STAG 5 BLOC (05/01/2022 12:14 PM CDT) Narrative Kendra Underwood MD - 05/01/2022 12:14 PM CDT Kendra Underwood MD 05/01/2022 4:45 PM Mohs Micrographic Surgery Operative Note Procedure: Mohs micrographic surgery Date of service: 05/01/2022 Location: left dorsal hand Preop diagnosis: Squamous cell carcinoma Postop diagnosis: Squamous cell carcinoma Mohs AUC score: 8 Number of stages: 1 Preop size: 0.5x0.6 cm Postop size: 1.2x1.0 cm Depth of final defect: fascia Previous dermpath accession #: [id number] Repair type: complex Mohs accession #: [id number] Surgeon and Pathologist: Kendra Underwood MD served as both surgeon and pathologist. No other physician was involved in the cancer removal or pathology interpretation. Assistants: N/A Indications for Mohs Surgery Removal of the patient's tumor is complicated by the following clinical features: Clinical area critical for tissue conservation (Area H: central face, eyelids, eyebrows, nose, lips, chin, ear, periauricular, holiness, genitalia, hands, feet, ankles, nail units and areola). Based on my medical judgement, Mohs surgery is the most appropriate treatment for this cancer compared to other treatments. I discussed alternative treatments to Mohs surgery and specifically discussed the risks and benefits of curettage, excision with permanent sections, and foregoing treatment. The rationale for Mohs was explained to the patient and consent was obtained. The risks, benefits and alternatives to therapy were discussed in detail. Specifically, the risks of infection, scarring, bleeding, prolonged wound healing, incomplete removal, allergy to anesthesia, nerve injury and recurrence were addressed. Prior to the procedure, the treatment site was clearly identified and confirmed by the patient. All components of [place] Protocol/PAUSE Rule completed. STAGE I: The patient was placed on the operating table. The cancer was identified and outlined. The entire surgical field was prepped with hibiclens. The surgical site was anesthetized using Lidocaine 1% with epinephrine 1:100,000 buffered with sodium bicarbonate 8.4% in a 1:10 ratio.The area of clinically apparent tumor was debulked with a 2 mm curette. The layer of tissue was then surgically excised using a #15 blade and was then transferred onto a specimen sheet maintaining the orientation of the specimen. Hemostasis was obtained using monopolar electrodesiccation. The wound site was then covered with a dressing while the tissue samples were processed for examination. The specimen was oriented, mapped and divided. Each section was then inked and processed in the Mohs lab using the Mohs protocol and submitted for frozen section. The histopathologic sections were reviewed by the surgeon in conjunction with the reference map. Total blocks: 1 Total slides: 3 Frozen sections were examined by the surgeon. No additional tumor was identified. No additional histologic findings appreciated. Cell morphology: N/A. No tumor seen. Pathological pattern: N/A. No tumor seen. Depth of invasion: N/A. No tumor seen. Scar tissue: Not Present Perineural invasion: Not Present Inflammation obscuring possible tumor presence: Not Present [facility] CLIA # [id number] Mohs geoscience laboratory technician: Kendra Underwood MD REPAIR: Complex Primary Surgeon: Kendra Underwood MD Automatic Teller Machine Servicer: N/A Repair Size: 3.0 cm Sutures: 4-0 monocryl Width of underminin.0 cm Free margin of the nostrils, helical rim, or vermilion lip involved: NO Presence of exposed bone/cartilage/tendon/named neurovascular structure: NO Use of retention sutures: NO Indication for complex repair: Complex repair was performed because inelasticity of skin made closure difficult, to avoid a deforming, depressed, and contracted scar, to minimize free margin distortion risk, and to preserve the functional anatomy. The defect was identified and a marking pen was used to plan the repair. The area was infiltrated with Lidocaine 1% with epinephrine 1:100,000 buffered with sodium bicarbonate 8.4% in a 1:10 ratio, prepped with iodine and draped with sterile towels. The wound was debeveled. Extensive undermining was performed to a distance of at least 1.0 cm (defect width perpendicular to closure is 1.0 cm) along one edge of the entire surgical defect. Cones were excised within relaxed skin tension lines on both sides of the defect. Hemostasis was obtained using monopolar electrodesiccation. The dermis and subcutaneous tissue were then approximated using buried vertical mattress sutures. Percutaneous simple running sutures were carefully placed for maximum eversion and meticulous wound edge approximation. Careful attention was paid to avoid distorting any nearby free margins. The wound was cleansed with saline and ointment was applied along the wound surface. A sterile pressure dressing was applied. Wound care instructions were given verbally and in writing. The patient left the operating suite in stable condition. Patient was informed that additional refinement of the resulting surgical scar may be used as a second stage of this reconstruction. Dr. Underwood performed the entire surgery, and documentation used to initiate this operative report. I entered the information in our [employer] DocFlowsheet with the information provided by Dr. Underwood on her handwritten, paper format, surgical worksheet, which was then used to initiate the create of this note. Dr. Underwood then reviewed and edited the note as needed to complete the note. Meena Pierre LPN I have reviewed the note, edited it as necessary and performed the entire procedure. Kendra Underwood MD Automation Clerk 05/01/2022 Kendra Underwood MD PROCEDURE/MINOR SURG ICAL ORDERABLES * MA CHMSRG MOHS MG TQ H/N/H/F/G 1ST STAG 5 BLOC (04/18/2022 11:36 AM CDT) Narrative Kendra Underwood MD - 04/18/2022 11:36 AM CDT Kendra Underwood MD 04/18/2022 5:04 PM Mohs Micrographic Surgery Operative Note Procedure: Mohs micrographic surgery Date of service: 04/18/2022 Location: right anterior crown Preop diagnosis: Basal cell carcinoma Postop diagnosis: Basal cell carcinoma Mohs AUC score: 8 Number of stages: 1 Preop size: 1.0x1.0 cm Postop size: 1.4x1.6 cm Depth of final defect: adipose Previous dermpath accession #: [id number] Repair type: second intent Mohs accession #: [id number] Surgeon and Pathologist: Kendra Underwood MD served as both surgeon and pathologist. No other physician was involved in the cancer removal or pathology interpretation. Assistants: N/A Indications for Mohs Surgery Removal of the patient's tumor is complicated by the following clinical features: Clinical area critical for tissue conservation (Area M: cheeks, forehead, scalp, neck, jawline, pretibial surface). Based on my medical judgement, Mohs surgery is the most appropriate treatment for this cancer compared to other treatments. I discussed alternative treatments to Mohs surgery and specifically discussed the risks and benefits of curettage, excision with permanent sections, and foregoing treatment. The rationale for Mohs was explained to the patient and consent was obtained. The risks, benefits and alternatives to therapy were discussed in detail. Specifically, the risks of infection, scarring, bleeding, prolonged wound healing, incomplete removal, allergy to anesthesia, nerve injury and recurrence were addressed. Prior to the procedure, the treatment site was clearly identified and confirmed by the patient. All components of [place] Protocol/PAUSE Rule completed. STAGE I: The patient was placed on the operating table. The cancer was identified and outlined. The entire surgical field was prepped with hibiclens. The surgical site was anesthetized using Lidocaine 1% with epinephrine 1:100,000 buffered with sodium bicarbonate 8.4% in a 1:10 ratio.The area of clinically apparent tumor was debulked with a 2 mm curette. The layer of tissue was then surgically excised using a #15 blade and was then transferred onto a specimen sheet maintaining the orientation of the specimen. Hemostasis was obtained using monopolar electrodesiccation. The wound site was then covered with a dressing while the tissue samples were processed for examination. The specimen was oriented, mapped and divided. Each section was then inked and processed in the Mohs lab using the Mohs protocol and submitted for frozen section. The histopathologic sections were reviewed by the surgeon in conjunction with the reference map. Total blocks: 1 Total slides: 3 Frozen sections were examined by the surgeon. No additional tumor was identified. No additional histologic findings appreciated. Cell morphology: N/A. No tumor seen. Pathological pattern: N/A. No tumor seen. Depth of invasion: N/A. No tumor seen. Scar tissue: Not Present Perineural invasion: Not Present Inflammation obscuring possible tumor presence: Not Present [facility] CLIA # [id number] Mohs geoscience laboratory technician: Kendra Underwood MD REPAIR: Secondary Intention The patient is status-post Mohs micrographic surgery. The surgical site was examined with attention to normal anatomic and functional relationships. After consideration and discussion of multiple options with the patient, it was determined that healing by secondary intention would offer the best chance for preservation/holiness of all normal anatomic and functional relationships. The patient verbalized understanding and agreed with this plan. It is also understood that should second intention healing be sub-optimal, additional procedures such as scar revision, steroid injection or dermabrasion may be recommended. The open wound was cleaned and a thick layer of vaseline was applied. A pressure dressing consisting of non-adherent gauze, gauze, and hypafix was applied. Wound care was discussed with the patient both orally and in writing. The patient stated understanding and agreement with the course of care. Dr. Underwood performed the entire surgery, and documentation used to initiate this operative report. I entered the information in our [employer] DocFlowsheet with the information provided by Dr. Underwood on her handwritten, paper format, surgical worksheet, which was then used to initiate the create of this note. Dr. Underwood then reviewed and edited the note as needed to complete the note. Meena Pierre LPN I have reviewed the note, edited it as necessary and performed the entire procedure. Kendra Underwood MD Automation Clerk 04/18/2022 Kendra Underwood MD PROCEDURE/MINOR SURG ICAL ORDERABLES * (ABNORMAL) CBC WITH DIFFERENTIAL (01/20/2022 1:46 PM CDT) [facility] WBC 7.7 4.0 - 10.0 x10E9/L 01/20/2022 4:[address] [facility] RBC 5.40 4.40 - 6.10 x10E12/L 01/20/2022 4:[address] [facility] Hemoglobin 16.3 13.7 - 17.5 gm/dL 01/20/2022 4:[address] [facility] Hematocrit 51.2(H) 40.1 - 51.0 % 01/20/2022 4:[address] [facility] MCV 94.8 78.0 - 100.0 fl 01/20/2022 4:27 PM [facility] MCH 30.2 25.6 - 34.0 pg 01/20/2022 4:27 PM [facility] MCHC 31.8(L) 32.3 - 36.5 gm/dL 01/20/2022 4:27 PM [facility] RDW 14.1 11.6 - 14.4 % 01/20/2022 4:27 PM [facility] MPV 12.0 9.4 - 12.4 fl 01/20/2022 4:27 PM [facility] Platelet Count 134(L) 163 - 369 x10E9/L 01/20/2022 4:27 PM [facility] Neutrophils % 66.3 40.0 - 75.0 % 01/20/2022 4:27 PM [facility] Lymphocytes % 20.6 19.3 - 53.1 % 01/20/2022 4:27 PM [facility] Monocytes % 9.0 4.7 - 12.5 % 01/20/2022 4:27 PM [facility] Eosinophils % 2.5 0.7 - 7.0 % 01/20/2022 4:27 PM [facility] Basophils % 1.3(H) 0.1 - 1.2 % 01/20/2022 4:27 PM [facility] Immature Granulocytes 0.3 0 - 0.5 % 01/20/2022 4:27 PM [facility] Neutrophil Absolute 5.10 1.56 - 6.13 x10E9/L 01/20/2022 4:27 PM [facility] Lymphocytes Absolute 1.58 1.18 - 3.74 x10E9/L 01/20/2022 4:27 PM [facility] Monocytes Absolute 0.69 0.24 - 0.86 x10E9/L 01/20/2022 4:27 PM [facility] Eosinophils Absolute 0.19 0.04 - 0.54 x10E9/L 01/20/2022 4:27 PM [facility] Basophils Absolute 0.10(H) 0.01 - 0.08 x10E9/L 01/20/2022 4:27 PM [facility] Immature Granulocytes Absolute 0.02 0 - 0.03 x10E9/L 01/20/2022 4:[address] [facility] nRBC Auto 0 <=0 /100 WBC 01/20/2022 4:[address] [facility] nRBC Absolute 0.00 <=0 x10E9/L 01/20/2022 4:[address] [facility] Blood BLOOD SPECIMEN / Unknown Venipuncture / Unknown 01/20/2022 1:46 PM CDT 01/20/2022 1:46 PM CDT Ellen Wright SENIOR DRAFTER-SHORER LAB - HEMAT OLOGY ORDERABLES Performing Organization Address City/State/[facility] Co de Phone Number [facility] [address] * (ABNORMAL) COMPREHENSIVE METABOLIC PANEL (01/20/2022 1:46 PM CDT) Glucose 90 70 - 125 mg/dL 01/20/2022 4:[address] [facility] Sodium 140 136 - 145 mmol/L 01/20/2022 4:[address] [facility] Potassium 4.9(H) 3.4 - 4.5 mmol/L 01/20/2022 4:[address] [facility] Chloride 106 98 - 107 mmol/L 01/20/2022 4:[address] [facility] CO2 25 22 - 29 mmol/L 01/20/2022 4:[address] [facility] Calcium 9.8 8.4 - 10.2 mg/dL 01/20/2022 4:[address] [facility] Anion Gap 14 10 - 20 mmol/L 01/20/2022 4:[address] [facility] BUN 18.0 8.4 - 25.7 mg/dL 01/20/2022 4:[address] [facility] Creatinine 1.01 0.72 - 1.25 mg/dL 01/20/2022 4:[address] [facility] eGFR by MDRD >60 >60 mL/min/1.7 3m2 01/20/2022 4:[address] [facility] eGFR by MDRD >60 >60 mL/min/1.7 3m2 01/20/2022 4:[address] [facility] Alkaline Phosphatase 95 40 - 150 U/L 01/20/2022 4:[address] [facility] ALT 19 5 - 55 U/L 01/20/2022 4:[address] [facility] AST 17 5 - 34 U/L 01/20/2022 4:[address] [facility] Protein Total 8.0 6.4 - 8.3 gm/dL 01/20/2022 4:[address] [facility] Albumin 4.0 3.5 - 5.0 gm/dL 01/20/2022 4:[address] [facility] Globulin Total 4.0 2.6 - 4.0 gm/dL 01/20/2022 4:[address] [facility] Albumin/Globulin Ratio 1.0 0.9 - 1.6 01/20/2022 4:[address] [facility] Bilirubin Total 0.4 0.2 - 1.2 mg/dL 01/20/2022 4:[address] [facility] Blood BLOOD SPECIMEN / Unknown Venipuncture / Unknown 01/20/2022 1:46 PM CDT 01/20/2022 1:46 PM CDT Ellen Wright SENIOR DRAFTER-SHORER LAB - CHEMI STRY ORDERABLES Performing Organization Address City/State/[facility] Co de Phone Number [facility] [address] * MA EXC SKIN MALIG 2.1-3CM REMAINDR BODY (09/12/2021 3:41 PM DATA PROCESSING SUPERVISOR) Narrative Kendra Underwood MD - 09/12/2021 3:41 PM DATA PROCESSING SUPERVISOR Kendra Unedrwood MD 09/12/2021 6:05 PM Date of Service: 09/12/2021 Surgery: Slow Mohs staged excision Stage #: 2 Tumor Type: Melanoma Location: right vertex scalp Derm-Path Pre-Op Size: 2.8 x 2.8cm Post-Op Size: 3.3 x 3.5 cm Specimen excised: 2.5x0.7 cm Surgical margins: 0.5 cm Level of Defect: fascia Repair Type: path pending Primary Surgeon: Kendra Underwood MD INDICATIONS: The risks of bleeding, infection, discomfort, incomplete removal, nerve damage, and scar formation were explained to the patient. The possible need for additional stages, additional surgical procedures or treatment may be recommended based on the pathology results. The patient understands that the surgical site may remain open until the margins are clear of tumor. Evaluation for reconstruction will occur after tumor clearance. All questions were answered. After informed consent and appropriate instructions, the patient underwent the procedure as follows: DESCRIPTION OF PROCEDURE: The patient was positioned in the operating chair. The lesion was identified and the appropriate margins were outlined with a marker. A photo was taken for mapping. The same area was then prepped with chlorhexidine and infiltrated with 1% lidocaine with epinephrine 1:100,000 buffered with 1:10 sodium bicarbonate. Then the perimeter of the lesion was scored deeply to fat followed by deeply scoring the peripheral margin and planned sections with notching of the margin for mapping. The specimen was obtained from the 9:00 to 12:00 position only today. The peripheral margin incision was then extended to the level of subcutaneous fat with a 15 blade scalpel and excised. The specimen and notches were mapped onto a worksheet for future reference. Hemostasis was obtained with monopolar electrodessication. The central tumor was excised. The margin of the specimen was sectioned as planned, processed in Mohs fashion, and sent for permanent section assessment of the margin. The wound was cleansed and covered with petrolatum ointment. Vaseline was applied into the open wound. Wound care instructions were given verbally and on paper. The patient is to return for further surgery pending histopathologic review. Alfonso Mosqueda MD Dermatologic Surgery Fellow [facility] Dermatology I have reviewed the note, edited it as necessary and performed the entire procedure. Kendra Underwood MD Automation Clerk Kendra Underwood MD PROCEDURE/MINOR SURG ICAL ORDERABLES * MA FULL THICK GRFT NOS,EAR,LID <20SQCM, MA CHMSRG MOHS MG TQ H/N/H/F/G EA ADDL STAG, MA CHMSRG MOHS MG TQ H/N/H/F/G 1ST STAG 5 BLOC (08/30/2021 12:52 PM DATA PROCESSING SUPERVISOR) Narrative Kendra Underwood MD - 08/30/2021 12:52 PM DATA PROCESSING SUPERVISOR Kendra Underwood MD 09/04/2021 6:23 PM Mohs Micrographic Surgery Operative Note Procedure: Mohs micrographic surgery Date of service: 08/30/2021 Location: L superior helix Preop diagnosis: Squamous cell carcinoma Postop diagnosis: Same Mohs AUC score: 8 Number of stages: 2 Preop size: 0.9 x 1.0 cm Postop size: 1.0 x 1.4 cm Depth of final defect: perichondrium Previous dermpath accession #: [id number] Repair type: full-thickness skin graft Mohs accession #: [id number] Surgeon and Pathologist: Kendra Underwood MD served as both surgeon and pathologist. No other physician was involved in the cancer removal or pathology interpretation. Assistants: Kin Indications for Mohs Surgery Removal of the patient's tumor is complicated by the following clinical features: Clinical area critical for tissue conservation (Area H: central face, eyelids, eyebrows, nose, lips, chin, ear, periauricular, holiness, genitalia, hands, feet, ankles, nail units and areola). Based on my medical judgement, Mohs surgery is the most appropriate treatment for this cancer compared to other treatments. I discussed alternative treatments to Mohs surgery and specifically discussed the risks and benefits of curettage, excision with permanent sections, and foregoing treatment. The rationale for Mohs was explained to the patient and consent was obtained. The risks, benefits and alternatives to therapy were discussed in detail. Specifically, the risks of infection, scarring, bleeding, prolonged wound healing, incomplete removal, allergy to anesthesia, nerve injury and recurrence were addressed. Prior to the procedure, the treatment site was clearly identified and confirmed by the patient. All components of [place] Protocol/PAUSE Rule completed. STAGE I: The patient was placed on the operating table. The cancer was identified and outlined. The entire surgical field was prepped with iodine. The surgical site was anesthetized using Lidocaine 1% with epinephrine 1:100,000 buffered with sodium bicarbonate 8.4% in a 1:10 ratio.The area of clinically apparent tumor was debulked with a 2 mm curette. The layer of tissue was then surgically excised using a #15 blade and was then transferred onto a specimen sheet maintaining the orientation of the specimen. Hemostasis was obtained using monopolar electrodesiccation. The wound site was then covered with a dressing while the tissue samples were processed for examination. The specimen was oriented, mapped and divided. Each section was then inked and processed in the Mohs lab using the Mohs protocol and submitted for frozen section. The histopathologic sections were reviewed by the surgeon in conjunction with the reference map. Total blocks: 1 Total slides: 3 Frozen sections were examined by the surgeon and revealed residual tumor. Tumor was indicated in red on the reference map. Cell morphology: tumor nodules of atypical squamous cells in the epidermis and dermis with abundant keratinization Pathological pattern: Squamous cell carcinoma, well differentiated Depth of invasion: Dermis Scar tissue: Not Present Perineural invasion: Not Present Inflammation obscuring possible tumor presence: Not Present STAGE II: The patient was prepped in the same fashion as the first stage. Using a similar technique to that described above, a thin layer of tissue was removed from all areas where tumor was visible on the previous stage. The tissue was again oriented, mapped, dyed, and processed as above. Histopathologic sections were reviewed in conjunction with the reference map. Total blocks: 1 Total slides: 3 Frozen sections were examined by the surgeon and revealed: No additional tumor. Histology: No malignant cells seen in the sections examined. No additional histologic findings appreciated. [facility] CLIA # [id number] Mohs Ash Collector: Kendra Underwood MD REPAIR: Full thickness skin graft Primary Surgeon: Kendra Underwood MD Automatic Teller Machine Servicer: Williams Mosqueda MD Final Wound Size: 1.6 x 1.4 cm (graft) and 3.4 cm (donor) Sutures: 5-0 monocryl, 5-0 prolene Indication for graft: lack of a nearby tissue reservoir The surgical defect, donor site, and surrounding skin were prepped with iodine. The defect was prepared and edges were trimmed. Hemostasis was achieved with electrodesiccation. A donor site on the left preauricular cheek with characteristics of good color and texture match was identified and outlined to fit the defect. A 15 blade was used to incise the graft to adipose along with standing cones to facilitate linear repair of the donor site. The graft was thinned and trimmed. Simple interrupted and simple running 5-0 Prolene sutures were used to secure the graft to the recipient site. The donor site was then addressed. Intermediate repair of the donor site was performed to preserve the functional anatomy. Wide undermining was performed. Hemostasis was achieved with electrodesiccation. The subcutaneous tissue and dermis were closed with buried vertical mattress sutures. Epidermal closure was achieved with running sutures. The wound was cleansed with saline and ointment was applied along the wound surface. A sterile pressure dressing was applied. Wound care instructions were given verbally and in writing. The patient left the operating suite in stable condition. Patient was informed that additional refinement of the resulting surgical scar may be used as a second stage of this reconstruction. Alfonso Mosqueda MD Dermatologic Surgery Fellow [facility] Dermatology I have reviewed the note, edited it as necessary and performed the entire Mohs procedure and shay portions of the reconstruction. Kendra Underwood MD Automation Clerk Kendra Underwood MD PROCEDURE/MINOR SURG ICAL ORDERABLES * MA EXC SKIN MALIG 3.1-4CM FACE,FACIAL (08/29/2021 3:02 PM DATA PROCESSING SUPERVISOR) Narrative Kendra Underwood MD - 08/29/2021 3:02 PM DATA PROCESSING SUPERVISOR Kendra Underwood MD 08/29/2021 5:48 PM Date of Service: 08/29/2021 Surgery: Slow Mohs staged excision Stage #: 1 Tumor Type: Melanoma Location: right vertex scalp Derm-Path Pre-Op Size: 1.3 x 1.5 cm Post-Op Size: 3.3 x 3.5 cm Surgical margins: 1.0 cm Level of Defect: fascia Repair Type: path pending Primary Surgeon: Kendra Underwood MD INDICATIONS: The risks of bleeding, infection, discomfort, incomplete removal, nerve damage, and scar formation were explained to the patient. The possible need for additional stages, additional surgical procedures or treatment may be recommended based on the pathology results. The patient understands that the surgical site may remain open until the margins are clear of tumor. Evaluation for reconstruction will occur after tumor clearance. All questions were answered. After informed consent and appropriate instructions, the patient underwent the procedure as follows: DESCRIPTION OF PROCEDURE: The patient was positioned in the operating chair. The lesion was identified and the appropriate margins were outlined with a marker. A photo was taken for mapping. The same area was then prepped with chlorhexidine and infiltrated with 1% lidocaine with epinephrine 1:100,000 buffered with 1:10 sodium bicarbonate. Then the perimeter of the lesion was scored deeply to fat followed by deeply scoring the peripheral margin and planned sections with notching of the margin for mapping. The notches were then marked as well as the 12 o'clock position on the specimen. The peripheral margin incision was then extended to the level of subcutaneous fat with a 15 blade scalpel and excised. The specimen and notches were mapped onto a worksheet for future reference. Hemostasis was obtained with monopolar electrodessication. The central tumor was excised. The margin of the specimen was sectioned as planned, processed in Mohs fashion, and sent for permanent section assessment of the margin. The wound was cleansed and covered with petrolatum ointment. Vaseline was applied into the open wound. Wound care instructions were given verbally and on paper. The patient is to return for further surgery pending histopathologic review. Dr. Underwood performed the entire surgery, and documentation used to initiate this operative report. I entered the information in our [facility] DocFlowsheet with the information provided by Dr. Underwood on her handwritten, paper format, surgical worksheet, which was then used to initiate the create of this note. Dr. Underwood then reviewed and edited the note as needed to complete the note. RISHI Kat I have reviewed the note, edited it as necessary and performed the entire procedure. Kendra Underwood MD Automation Clerk Kendra Underwood MD PROCEDURE/MINOR SURG ICAL ORDERABLES * PATHOLOGY/CYTOLOGY REPORT ORDER (08/29/2021) 08/29/2021 Narrative 08/29/2021 Ordered by an unspecified provider. Scanned Document LAB - PATHOLOGY/CYTO LOGY ORDERABLES * (ABNORMAL) CULTURE AEROBIC (07/21/2021 9:00 AM CDT) Only the most recent of2 resultswithin the time period is included. Culture (A) [facility] Comment: CULTURE, AEROBIC BACTERIA Micro Number: [id number] Test Status: Final Specimen Source: Skin Specimen Quality: Adequate Result: Light growth of Staphylococcus aureus COMMENT: Skin amanda also present. S.aureus INT BR[facility] CIPROFLOXACIN S <=0.5 CLINDAMYCIN S <=0.25 ERYTHROMYCIN S <=0.25 GENTAMICIN S <=0.5 LEVOFLOXACIN S <=0.12 MOXIFLOXACIN S <=0.25 OXACILLIN S <=0.25 1 TETRACYCLINE S <=1 TRIMETHOPRIM/SULFA S <=10 VANCOMYCIN S <=0.5 S=Susceptible I=Intermediate R=Resistant * = Not Tested NR = Not Reported NN = See Therapy Comments THERAPY COMMENTS Note 1: Oxacillin-susceptible staphylococci are susceptible to other penicillinase-stable penicillins (e.g. Methicillin, Nafcillin), beta- lactam/beta-lactamase inhibitor combinations, and cephems with staphylococcal indications, including Cefazolin. NO COLLECTION DATE RECEIVED. WE HAVE USED THE DATE THE SPECIMEN WAS RECEIVED BY THIS LABORATORY THE COLLECTION DATE. IF THIS IS INCORRECT, PLEASE CONTACT CLIENT SERVICES. PHONE NUMBER: [phone] Test Performed at: [id number] [address] SAMUEL VILLAFUERTE MD Microbiology TISSUE SPECIMEN FROM SKIN / Unknown 07/19/2021 2:07 AM CDT Kendra Underwood MD LAB - MICROBIOLOGY O RDERABLES [employer] [address] [place] [id number] * MA REPR CMPL WND HEAD,FAC,HAND 2.6-7.5, MA CHMSRG MOHS MG TQ H/N/H/F/G 1ST STAG 5 BLOC (07/11/2021 11:48 AM CDT) Narrative Kendra Underwood MD - 07/11/2021 11:48 AM CDT Kendra Underwood MD 07/11/2021 1:17 PM Mohs Micrographic Surgery Operative Note Procedure: Mohs micrographic surgery Date of service: 07/11/2021 Location: left submandibular neck Preop diagnosis: Basal cell carcinoma Postop diagnosis: Same Mohs AUC score: 8 Number of stages: 1 Preop size: 1.0x1.0 cm Postop size: 2.0x1.5 cm Depth of final defect: adipose Previous dermpath accession #: [id number] Repair type: complex Mohs accession #: [id number] Surgeon and Pathologist: Kendra Underwood MD served as both surgeon and pathologist. No other physician was involved in the cancer removal or pathology interpretation. Indications for Mohs Surgery Removal of the patient's tumor is complicated by the following clinical features: Clinical area critical for tissue conservation (Area M: cheeks, forehead, scalp, neck, jawline, pretibial surface). Based on my medical judgement, Mohs surgery is the most appropriate treatment for this cancer compared to other treatments. I discussed alternative treatments to Mohs surgery and specifically discussed the risks and benefits of curettage, excision with permanent sections, and foregoing treatment. The rationale for Mohs was explained to the patient and consent was obtained. The risks, benefits and alternatives to therapy were discussed in detail. Specifically, the risks of infection, scarring, bleeding, prolonged wound healing, incomplete removal, allergy to anesthesia, nerve injury and recurrence were addressed. Prior to the procedure, the treatment site was clearly identified and confirmed by the patient. All components of [place] Protocol/PAUSE Rule completed. STAGE I: The patient was placed on the operating table. The cancer was identified and outlined. The entire surgical field was prepped with hibiclens. The surgical site was anesthetized using Lidocaine 1% with epinephrine 1:100,000 buffered with sodium bicarbonate 8.4% in a 1:10 ratio.The area of clinically apparent tumor was debulked with a 2 mm curette. The layer of tissue was then surgically excised using a #15 blade and was then transferred onto a specimen sheet maintaining the orientation of the specimen. Hemostasis was obtained using monopolar electrodesiccation. The wound site was then covered with a dressing while the tissue samples were processed for examination. The specimen was oriented, mapped and divided. Each section was then inked and processed in the Mohs lab using the Mohs protocol and submitted for frozen section. The histopathologic sections were reviewed by the surgeon in conjunction with the reference map. Total blocks: 1 Total slides: 3 Frozen sections were examined by the surgeon. No additional tumor was identified. No additional histologic findings appreciated. Cell morphology: n/a Pathological pattern: n/a Depth of invasion: n/a Scar tissue: Not Present Perineural invasion: Not Present Inflammation obscuring possible tumor presence: Not Present [facility] CLIA # [id number] Mohs label fuser tender: Kendra Underwood MD REPAIR: Complex Primary Surgeon: Kendra Underwood MD Repair Size: 5.2 cm Sutures: 5-0 monocryl,6.0 prolene Width of underminin.0 cm Free margin involved: no Presence of exposed bone/cartilage/tendon/named neurovascular structure: no Use of retention sutures: no Indication for complex repair: extensive undermining The defect was identified and a marking pen was used to plan the repair. The area was infiltrated with Lidocaine 1% with epinephrine 1:100,000 buffered with sodium bicarbonate 8.4% in a 1:10 ratio, prepped with iodine and draped with sterile towels. The wound was debeveled. Extensive undermining was performed to a distance of at least 2.0 cm (defect width perpendicular to closure is 1.5 cm) along one edge of the entire surgical defect. Complex repair was performed because inelasticity of skin made closure difficult, to avoid a deforming, depressed, and contracted scar, and to preserve the functional anatomy. Cones were excised within relaxed skin tension lines on both sides of the defect. Hemostasis was obtained using monopolar electrodesiccation. The dermis and subcutaneous tissue were then approximated using buried vertical mattress sutures. Percutaneous simple running sutures were carefully placed for maximum eversion and meticulous wound edge approximation. Careful attention was paid to avoid distorting any nearby free margins. The wound was cleansed with saline and ointment was applied along the wound surface. A sterile pressure dressing was applied. Wound care instructions were given verbally and in writing. The patient left the operating suite in stable condition. Patient was informed that additional refinement of the resulting surgical scar may be used as a second stage of this reconstruction. Dr. Underwood performed the entire surgery, and documentation used to initiate this operative report. I entered the information in our [facility] DocFlowsheet with the information provided by Dr. Underwood on her handwritten, paper format, surgical worksheet, which was then used to initiate the create of this note. Dr. Underwood then reviewed and edited the note as needed to complete the note. [employer] BLACKWELL I have reviewed the note, edited it as necessary and performed the entire procedure. 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 No other physician was involved in the cancer removal or pathology interpretation. Indications for Mohs Surgery Removal of the patient's tumor is complicated by the following clinical features: Clinical area critical for tissue conservation (Area H: central face, eyelids, eyebrows, nose, lips, chin, ear, periauricular, holiness, genitalia, hands, feet, ankles, nail units and areola). Based on my medical judgement, Mohs surgery is the most appropriate treatment for this cancer compared to other treatments. I discussed alternative treatments to Mohs surgery and specifically discussed the risks and benefits of curettage, excision with permanent sections, and foregoing treatment. The rationale for Mohs was explained to the patient and consent was obtained. The risks, benefits and alternatives to therapy were discussed in detail. Specifically, the risks of infection, scarring, bleeding, prolonged wound healing, incomplete removal, allergy to anesthesia, nerve injury and recurrence were addressed. Prior to the procedure, the treatment site was clearly identified and confirmed by the patient. All components of [place] Protocol/PAUSE Rule completed. STAGE I: The patient was placed on the operating table. The cancer was identified and outlined. The entire surgical field was prepped with hibiclens. The surgical site was anesthetized using Lidocaine 1% with epinephrine 1:100,000 buffered with sodium bicarbonate 8.4% in a 1:10 ratio.The area of clinically apparent tumor was debulked with a 2 mm curette. The layer of tissue was then surgically excised using a #15 blade and was then transferred onto a specimen sheet maintaining the orientation of the specimen. Hemostasis was obtained using monopolar electrodesiccation. The wound site was then covered with a dressing while the tissue samples were processed for examination. The specimen was oriented, mapped and divided. Each section was then inked and processed in the Mohs lab using the Mohs protocol and submitted for frozen section. The histopathologic sections were reviewed by the surgeon in conjunction with the reference map. Total blocks: 1 Total slides: 5 Frozen sections were examined by the surgeon and revealed residual tumor. Tumor was indicated in red on the reference map. 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 Using a similar technique to that described above, a thin layer of tissue was removed from all areas where tumor was visible on the previous stage. The tissue was again oriented, mapped, dyed, and processed as above. Histopathologic sections were reviewed in conjunction with the reference map. Total blocks: 1 Total slides: 3 Frozen sections were examined by the surgeon and revealed residual tumor. Tumor was indicated in red on the reference map. No additional histologic findings appreciated. STAGE III: The patient was prepped in the same fashion as the first stage. Using a similar technique to that described above, a thin layer of tissue was removed from all areas where tumor was visible on the previous stage. The tissue was again oriented, mapped, dyed, and processed as above. Histopathologic sections were reviewed in conjunction with the reference map. Total blocks: 1 Total slides: 2 Frozen sections were examined by the surgeon and revealed: No additional tumor. Histology: No malignant cells seen in the sections examined. No additional histologic findings appreciated. [facility] CLIA # [id number] Mohs Labortory Director: Kendra Underwood MD REPAIR: Secondary Intention The patient is status-post Mohs micrographic surgery. The surgical site was examined with attention to normal anatomic and functional relationships. After consideration and discussion of multiple options with the patient, it was determined that healing by secondary intention would offer the best chance for preservation/holiness of all normal anatomic and functional relationships. The patient verbalized understanding and agreed with this plan. It is also understood that should second intention healing be sub-optimal, additional procedures such as scar revision, steroid injection or dermabrasion may be recommended. The open wound was cleaned and a thick layer of vaseline was applied. A pressure dressing consisting of non-adherent gauze, gauze, and hypafix was applied. Wound care was discussed with the patient both orally and in writing. The patient stated understanding and agreement with the course of care. Dr. Underwood performed the entire surgery, and documentation used to initiate this operative report. I entered the information in our [facility] DocFlowsheet with the information provided by Dr. Underwood on her handwritten, paper format, surgical worksheet, which was then used to initiate the create of this note. Dr. Underwood then reviewed and edited the note as needed to complete the note. Jaja Weiner MA I have reviewed the note, edited it as necessary and performed the entire procedure. Kendra Underwood MD Automation Clerk Kendra Underwood MD PROCEDURE/MINOR SURG ICAL ORDERABLES * DERMPATH SLIDE CONSULT (06/15/2021 12:00 AM CDT) Only the most recent of2 resultswithin the time period is included. Case Report Dermatopathology Report Case: [id number] Authorizing Provider: Kendra Underwood MD Collected: 06/15/2021 12:00 AM Ordering Location: [facility] DermPath Lab Received: 06/15/2021 10:14 AM Pathologist: Jose Alejandro Song MD Specimen: Slide(s), Left lower vermilion lip, OSC# [id number] 4:19 PM CDT DERMATOPATHOLOGY LABORATORY Final Diagnosis Specimen A. 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 Appt Date: 07/04/2021 Any additional sections, special stains or immunohistochemical stains performed by our laboratory will be kept here on file. 4:19 PM CDT DERMATOPATHOLOGY LABORATORY Microscopic Description Specimen A. Slide(s), Left lower vermilion lip, OSC# [id number]: The epidermis shows parakeratosis, full thickness disorderly maturation of keratinocytes, mitoses at different levels, and dyskeratotic cells. 4:19 PM CDT DERMATOPATHOLOGY LABORATORY Disclaimer An external and internal positive and negative controls are appropriate for the histochemical, immunohistochemical and immunofluorescence stain(s) in this case (if any), except where stated explicitly. The performance characteristics of the stain(s) cited in this report were developed and its performance characteristic determined by the Dermatopathology Laboratory at [facility], directed by Dr. Juan Song. These tests need not be, and therefore are not, approved by the [place] Food and Drug Administration. The tests are used for clinical purposes. Billing Codes Specimen Charges Stain Charges 06875 1 4:19 PM CDT DERMATOPATHOLOGY LABORATORY Embedded Images 4:19 PM CDT DERMATOPATHOLOGY LABORATORY Pathology/Cytolog y SLIDE / Unknown 06/15/2021 06/15/2021 10:14 AM CDT Kendra Underwood MD LAB - PATHOLOGY/CYTO LOGY ORDERABLES DERMATOPATHOLOGY LABORATORY [facility] - Department of Dermatology [facility] [address] [place] [address], [address] [phone] * MA REPR CMPL WND HEAD,FAC,HAND 2.6-7.5, MA CHMSRG MOHS MG TQ H/N/H/F/G EA ADDL STAG, MA CHMSRG MOHSMG TQ H/N/H/F/G 1ST STAG 5 BLOC (09/28/2020 4:14 PM DATA PROCESSING SUPERVISOR) Narrative Kendra Underwood MD - 09/28/2020 4:14 PM Kendra Scott MD 09/29/2020 3:12 PM Date of Service: 09/28/2020 Surgery: Mohs micrographic surgery Indication: Tumor location Repair Type: complex Repair Size: 4.5cm Suture Material: monocryl 5-0;Fast Absorbing Gut 5-0 Tumor Type: Basal cell carcinoma Location: left superior ant neck Derm-Path PreOp Size: 1.0x0.8 cm. PostOp Size: 1.6x2.3 cm. [facility] Level of Defect: subcutaneous fat Stage I: The patient was placed supine on the operating table. The cancer was identified, outlined with a marker, and verified by the patient. The entire surgical field was prepped with iodine. The surgical site was anesthetized using Lidocaine 1% with epinephrine 1:100,000 buffered with sodium bicarbonate 8.4% in a 1:10 ratio. The area of clinically apparent tumor was debulked with 2mm curette. The layer of tissue was then surgically excised using a #15 blade and was then transferred onto a specimen sheet maintaining the orientation of the specimen. Hemostasis was obtained using monopolar electrodessication. The wound site was then covered with a dressing while the tissue samples were processed for examination. The excised tissue was transported to the [facility] histology laboratory maintaining the tissue orientation. The tissue specimen was relaxed so that the entire surgical margin was in a a single horizontal plane for sectioning andinked for precise mapping. A precise reference map was drawn to reflect the sectioning of the specimen, colored inking of the margins, and orientation on the patient. The tissue was processed using horizontal sectioning ofthe base and continuous peripheral margins. The histopathologic sections were reviewed in conjunction with the reference map. Total blocks: 1 Total slides: 3 Residual tumor was identified and indicated in red on the reference map, identifying the location where further tissue excision was necessary. Therefore, an additional stage of Mohs Micrographic surgery was deemed necessary. Stage II The patient was returned to the operating room, and the area prepped in the usual manner. The residual tumor was excised using the reference map as a guide. The specimen was transfered to a labeled specimen sheet maintaining the orientation of the specimen. Hemostasis was obtained and the wound site was covered with a dressing while the tissue was processed for examination. The excised tissue was transported to the [facility] histology laboratory maintaining orientation. The specimen margins were inked for precise mapping and a reference map was prepared for the is additional stage to maintain precise orientation as described above. The tissue was processed using horizontal sectioning of the base and continuous peripheral margins. The histopathologic sections were reviewed in conjunction with the reference map. Total blocks: 1 Total slides: 2 There were no cancer cells visualized on examination, therefore Mohs surgery was complete. Reconstruction: Complex Closure Primary Surgeon : Kj Automatic Teller Machine Servicer Surgeon : Erlin The patient was taken to the operative suite and placed supine on the operating room table. The defect was identified. Appropriate markings were made with a marking pen to plan the repair. The area was infiltrated with Lidocaine 1% with epinephrine 1:100,000 buffered with sodium bicarbonate 8.4% in a 1:10 ratio and prepped with iodine and draped with sterile towels. The wound was debeveled and undermined widely the width of the defect bilaterally. Hemostasis was obtained using monopolar dessication. The dermis and subcutaneous tissue were then approximated using buried vertical mattress sutures. Care was taken to orient tension vectors of the closure to minimize distortion of free margins. Cones of redundant tissue were then excised within relaxed skin tension lines on both sides of the defect and additional buried sutures were placed in a similar fashion where needed. Percutaneous simple running 5-0 Fast absorbing gut sutures were carefully placed for maximum eversion and meticulous approximation. Repair Size: 4.5 cm Sutures Used: monocryl 5-0;Fast Absorbing Gut 5-0. The wound was cleansed with saline and ointment was applied along the wound surface. A sterile pressure dressing was applied. Wound care instructions were given verbally and in writing. The patient left the operating suite in stable condition. Patient was informed that additional refinement of the resulting surgical scar may be used as a second stage of this reconstruction. The Attending surgeon was present for shay portions of the procedure and always immediately available. Itz Kern MD [facility] Dermatology Resident PGY3 Kendra Underwood MD PROCEDURE/MINOR SURG ICAL ORDERABLES * SARS-COV-2 (COVID-19) IN HOUSE (09/11/2020 1:06 PM DATA PROCESSING SUPERVISOR) COVID-19 PCR Not detected Not detected 09/12/2020 7:10 PM DATA PROCESSING SUPERVISOR [facility] MICROBIOLOGY Microbiology SPECIMEN FROM NASOPHARYNGEAL STRUCTURE / Unknown Collection / Unknown 09/11/2020 1:06 PM DATA PROCESSING SUPERVISOR 09/11/2020 1:06 PM DATA PROCESSING SUPERVISOR Narrative [facility] MICROBIOLOGY - 09/12/2020 7:10 PM DATA PROCESSING SUPERVISOR This Real Time RT-PCR assay was developed and its performance characteristics determined by [facility]biology Laboratory. This test has been authorized by the Food and Drug administration (FDA)under an Emergency Use Authorization (EUA). This test has been validated in accordance with the FDA's guidance document Policy for Diagnostic Testing in Laboratories Certified to perform High Complexity Testing under CLIA prior to Emergency Use Authorization for Coronavirus Disease-2019 during the Public Health Emergency issued on December 12, 2019. FDA independent review of this validation is pending. This test is only authorized for the duration of time the declaration that circumstances exist justifying the authorization of emergency use of in vitro diagnostic tests for detection of SARS-CoV-2 virus and/or diagnosis of COVID-19 infection under section 564(b)(1) of the Act, 21 U.S.C 360bbb-3 (b)(1), unless the authorization is terminated or revoked sooner. Fact Sheets for this EUA assay are available upon request. Didier Ibarra PA-C LAB - MICROBIOLOGY O RDERABLES [facility]CROBIOLOGY [address] [place] [address], [facility] [phone] * MA REPR CMPL WND HEAD,FAC,HAND 2.6-7.5, MA CHMSRG MOHS MG TQ H/N/H/F/G EA ADDL STAG, MA CHMSRG MOHSMG TQ H/N/H/F/G 1ST STAG 5 BLOC (09/05/2020 11:49 AM DATA PROCESSING SUPERVISOR) Narrative Kendra Underwood MD - 09/05/2020 11:49 AM DATA PROCESSING SUPERVISOR Kendra Underwood MD 09/07/2020 3:19 PM Date of Service: 09/05/2020 Surgery: Mohs micrographic surgery Indication: Tumor location Repair Type: complex Repair Size: 4.3cm Suture Material: monocryl 5-0;prolene 6-0 Tumor Type: Squamous cell carcinoma Location: left mid cheek Derm-Path B PreOp Size: 0.6 x 1.0 cm. PostOp Size: 1.1x1.6 cm. [facility] Level of Defect: fat Stage I: The patient was placed supine on the operating table. The cancer was identified, outlined with a marker, and verified by the patient. The entire surgical field was prepped with Hibiclens. The surgical site was anesthetized using Lidocaine 1% with epinephrine 1:100,000 buffered with sodium bicarbonate 8.4% in a 1:10 ratio. The area of clinically apparent tumor was debulked with 2mm curette. The layer of tissue was then surgically excised using a #15 blade and was then transferred onto a specimen sheet maintaining the orientation of the specimen. Hemostasis was obtained using monopolar electrodessication. The wound site was then covered with a dressing while the tissue samples were processed for examination. The excised tissue was transported to the [facility] histology laboratory maintaining the tissue orientation. The tissue specimen was relaxed so that the entire surgical margin was in a a single horizontal plane for sectioning andinked for precise mapping. A precise reference map was drawn to reflect the sectioning of the specimen, colored inking of the margins, and orientation on the patient. The tissue was processed using horizontal sectioning ofthe base and continuous peripheral margins. The histopathologic sections were reviewed in conjunction with the reference map. Total blocks: 1 Total slides: 3 Residual tumor was identified and indicated in red on the reference map, identifying the location where further tissue excision was necessary. Therefore, an additional stage of Mohs Micrographic surgery was deemed necessary. Stage II The patient was returned to the operating room, and the area prepped in the usual manner. The residual tumor was excised using the reference map as a guide. The specimen was transfered to a labeled specimen sheet maintaining the orientation of the specimen. Hemostasis was obtained and the wound site was covered with a dressing while the tissue was processed for examination. The excised tissue was transported to the [facility] histology laboratory maintaining orientation. The specimen margins were inked for precise mapping and a reference map was prepared for the is additional stage to maintain precise orientation as described above. The tissue was processed using horizontal sectioning of the base and continuous peripheral margins. The histopathologic sections were reviewed in conjunction with the reference map. Total blocks: 1 Total slides: 2 There were no cancer cells visualized on examination, therefore Mohs surgery was complete. Reconstruction: Complex Closure Primary Surgeon : Kj Automatic Teller Machine Servicer Surgeon : Rosie The patient was taken to the operative suite and placed supine on the operating room table. The defect was identified. Appropriate markings were made with a marking pen to plan the repair. The area was infiltrated with Lidocaine 1% with epinephrine 1:100,000 buffered with sodium bicarbonate 8.4% in a 1:10 ratio and prepped with Hibiclens and draped with sterile towels. The wound was debeveled and undermined widely the width of the defect bilaterally. Cones were excised within relaxed skin tension lines on both sides of the defect. Hemostasis was obtained using monopolar dessication. The dermis and subcutaneous tissue were then approximated using buried vertical mattress sutures. The wound edges were then approximated additional buried sutures were placed in a similar fashion where needed. Percutaneous sutures were carefully placed for maximum eversion and meticulous approximation. Repair Size: 4.3 cm Sutures Used: monocryl 5-0;prolene 6-0 The wound was cleansed with saline and ointment was applied along the wound surface. A sterile pressure dressing was applied. Wound care instructions were given verbally and in writing. The patient left the operating suite in stable condition. Patient was informed that additional refinement of the resulting surgical scar may be used as a second stage of this reconstruction. The Attending surgeon was present and always immediately available. Valentine Hicks DO [facility] Dermatology Resident, PGY-3 Kendra Underwood MD PROCEDURE/MINOR SURG ICAL ORDERABLES * MA FULL THICK GRFT NOS,EAR,LID <20SQCM, MA CHMSRG MOHS MG TQ H/N/H/F/G 1ST STAG 5 BLOC (05/19/2019 2:48 PM CDT) Narrative Kendra Underwood MD - 05/19/2019 2:48 PM CDT Lory Garzon MD 05/19/2019 1:30 PM Date of Service: 05/19/2019 Surgery: Mohs micrographic surgery Indication: Tumor location Repair Type: FTSG Repair Size: 1.8 x 1.7 (Donor site: left neck complex 3.2 cm)cm Suture Material: monocryl 5-0;Fast Absorbing Gut 5-0 Tumor Type: Basal cell carcinoma Location: left midpost helix Derm-Path PreOp Size: 1.3 x 1.0 cm. PostOp Size: 1.8 x 1.7 cm. [facility] Level of Defect: fat Procedure: The patient was placed supine on the operating table. The cancer was identified, outlined with a marker, and verified by the patient. The entire surgical field was prepped with iodine. The surgical site was anesthetized using Lidocaine 1% with epinephrine 1:100,000 buffered with sodium bicarbonate 8.4% in a 1:10 ratio. The area of clinically apparent tumor was debulked with 2mm curette. The layer of tissue was then surgically excised using a #15 blade and was then transferred onto a specimen sheet maintaining the orientation of the specimen. Hemostasis was obtained using monopolar electrodessication. The wound site was then covered with a dressing while the tissue samples were processed for examination. The excised tissue was transported to the [facility] histology laboratory maintaining the tissue orientation. The tissue specimen was relaxed so that the entire surgical margin was in a a single horizontal plane for sectioning andinked for precise mapping. A precise reference map was drawn to reflect the sectioning of the specimen, colored inking of the margins, and orientation on the patient. The tissue was processed using horizontal sectioning ofthe base and continuous peripheral margins. The histopathologic sections were reviewed in conjunction with the reference map. Total blocks: 1 Total slides: 3 No additional tumor was identified on microscopic examination, therefore Mohs surgery was complete. Full Thickness Skin Graft INDICATIONS: The patient is status post Mohs' cutaneous micrographic excision. After consideration of all the options, it was determined that a full thickness skin graft would offer the best chance for preservation of normal anatomic andfunctional relationships. The patient understood the procedure and risks which include bleeding, infection, graft failure, scar formation, trapdooring and discomfort. Informed consent was obtained in writing. The patientunderstood that a skin graft will go through color changes and may require refinement post-operatively. The patient was informed that perfect matches may not be possible. The patient then underwent the procedure as follows: PROCEDURE: The patient was placed supine on the operating room table. The defect was identified. The postauricular neck donor site was chosen as this had the closest color and texture match to the surrounding defect skin. An anticipated graft design was drawn at the donor site. The graft recipient and donor sites were then infiltrated with Lidocaine 1% with epinephrine 1:100,000 buffered with sodium bicarbonate 8.4% in a 1:10 ratio and both areas were prepped with iodine and draped in a sterile fashion. The donor site tissue was excised with an ellipticle excision. The wound edges were then approximated and the edges were closed with simple running 5-0 fast absorbing gut epidermal sutures. Trimming all fat and fibrous tissue from it then thinned the graft. All visible hair follicles were extracted. The graft site was perfused with a 2 mm punch. The graft was then laid over the defect and secured with anchoring sutures. The graft was then trimmed and fully secured using simple running 5-0 fast absorbing gut epidermal sutures. Wound care instructions were provided in writing and verbally. Post-Operative Size: 1.8 x 1.3 cm The attending surgeon was present for entire/portion of repair and always immediately available. Lory Garzon MD Dermatology Resident PGY-3 Kendra Underwood MD PROCEDURE/MINOR SURG ICAL ORDERABLES * MA FULL THICK GRFT NOS,EAR,LID <20SQCM, MA CHMSRG MOHS MG TQ H/N/H/F/G EA ADDL STAG, MA CHMSRG MOHS MG TQ H/N/H/F/G 1ST STAG 5 BLOC (09/22/2018 7:44 PM DATA PROCESSING SUPERVISOR) Narrative Kendra Underwood MD - 09/22/2018 7:44 PM DATA PROCESSING SUPERVISOR Kendra Underwood MD 09/22/2018 7:44 PM Date of Service: 09/22/2018 Surgery: Mohs micrographic surgery Indication: Tumor location Repair Type: FTSG Repair Size: 1.7x2.4cm, donor site closure: 4.1cm Suture Material: monocryl 4-0;Fast Absorbing Gut 5-0 Tumor Type: Squamous cell carcinoma Location: left superior helix Derm-Path PreOp Size: 1.2x0.5 cm. PostOp Size: 2.0x1.3 cm. Mohs Level of Defect: fat Stage I: The patient was placed supine on the operating table. The cancer was identified, outlined with a marker, and verified by the patient. The entire surgical field was prepped with iodine. The surgical site was anesthetized using Lidocaine 1% with epinephrine 1:100,000 buffered with sodium bicarbonate 8.4% in a 1:10 ratio. The area of clinically apparent tumor was debulked with 2mm curette. The layer of tissue was then surgically excised using a #15 blade and was then transferred onto a specimen sheet maintaining the orientation of the specimen. Hemostasis was obtained using monopolar electrodessication. The wound site was then covered with a dressing while the tissue samples were processed for examination. The excised tissue was transported to the [facility] histology laboratory maintaining the tissue orientation. The tissue specimen was relaxed so that the entire surgical margin was in a a single horizontal plane for sectioning andinked for precise mapping. A precise reference map was drawn to reflect the sectioning of the specimen, colored inking of the margins, and orientation on the patient. The tissue was processed using horizontal sectioning ofthe base and continuous peripheral margins. The histopathologic sections were reviewed in conjunction with the reference map. Total blocks: 1 Total slides: 4 Residual tumor was identified and indicated in red on the reference map, identifying the location where further tissue excision was necessary. Therefore, an additional stage of Mohs Micrographic surgery was deemed necessary. Stage II The patient was returned to the operating room, and the area prepped in the usual manner. The residual tumor was excised using the reference map as a guide. The specimen was transfered to a labeled specimen sheet maintaining the orientation of the specimen. Hemostasis was obtained and the wound site was covered with a dressing while the tissue was processed for examination. The excised tissue was transported to the [facility] histology laboratory maintaining orientation. The specimen margins were inked for precise mapping and a reference map was prepared for the is additional stage to maintain precise orientation as described above. The tissue was processed using horizontal sectioning of the base and continuous peripheral margins. The histopathologic sections were reviewed in conjunction with the reference map. Total blocks: 1 Total slides: 2 There were no cancer cells visualized on examination, therefore Mohs surgery was complete. Full Thickness Skin Graft with Complex Repair of Donor Site PROCEDURE: The patient was placed supine on the operating room table. The defect was measured and identified. A template was made. The Left postauricular neck donor site was chosen from the area, as this had the closest color and texture match to the surrounding defect skin. An anticipated graft design was drawn at the donor site. The graft recipient site and donor site were then infiltrated with Lidocaine 1% with epinephrine 1:100,000 buffered with sodium bicarbonate 8.4% in a 1:10 ratio and both areas were prepped with iodine and draped in a sterile fashion. Hemostasis was obtained by monopolar electrodessication. The donor site was then addressed. The graft (1.7x2.4 cm) was harvested using a #15 blade by excising to the level of fat. The defect was closed after undermining bluntly in all directions and hemostasis obtained with monopolar electrodessication. The wound edges were approximated using4-0 monocryl deep dermal sutures and simple running Fast Absorbing Gut 5-0 (wound length: 4.1cm). Trimming fibrous-fatty tissue away with Iris scissors then thinned the graft. The graft was then placed over the defect and secured with 5-0 FAPG sutures. The graft was trimmed to fit the defect and secured fully with a tacking suture. The graft and donor sites were cleansed with saline. An ointment and non-adherent pressure dressing was applied to the donor site. Wound care instructions were given verbally and in writing. The patient left the operating room in stable condition. The attending surgeon was present for for shay portions of the procedure procedure and always immediately available. Michael Urias MD Dermatology Mohs Fellow, PGY-5 09/22/2018 12:45 PM Kendra Underwood MD PROCEDURE/MINOR SURG ICAL ORDERABLES * MA CHMSRG MOHS MG TQ H/N/H/F/G 1ST STAG 5 BLOC, MA REPR CMPL WND HEAD,FAC,HAND 2.6-7.5 (04/18/2018 6:21 PM CDT) Kendra Pulido MD - 04/18/2018 6:21 PM CDT Sebastien Chacon MD 04/18/2018 6:21 PM Date of Service: 04/15/2018 Surgery: Mohs micrographic surgery Repair Type: complex Repair Size: 3.5cm Suture Material: monocryl 5-0;Fast Absorbing Gut 5-0 Tumor Type: Basal cell carcinoma Location: left lateral cheek Derm-Path PreOp Size: 1.2x0.7 cm. PostOp Size: 2.0x1.6 cm. Mohs Level of Defect: fat Procedure: The patient was placed supine on the operating table. The cancer was identified, outlined with a marker, and verified by the patient. The entire surgical field was prepped with iodine. The surgical site was anesthetized using Lidocaine 1% with epinephrine 1:100,000 buffered with sodium bicarbonate 8.4% in a 1:10 ratio. The area of clinically apparent tumor was debulked with 2mm curette. The layer of tissue was then surgically excised using a #15 blade and was then transferred onto a specimen sheet maintaining the orientation of the specimen. Hemostasis was obtained using monopolar electrodessication. The wound site was then covered with a dressing while the tissue samples were processed for examination. The excised tissue was transported to the Mohs histology laboratory maintaining the tissue orientation. The tissue specimen was relaxed so that the entire surgical margin was in a a single horizontal plane for sectioning andinked for precise mapping. A precise reference map was drawn to reflect the sectioning of the specimen, colored inking of the margins, and orientation on the patient. The tissue was processed using horizontal sectioning ofthe base and continuous peripheral margins. The histopathologic sections were reviewed in conjunction with the reference map. Total blocks: 1 Total slides: 3 No additional tumor was identified on microscopic examination, therefore Mohs surgery was complete. Reconstruction: Complex Closure Primary Surgeon : Kj Automatic Teller Machine Servicer Surgeon : Adonay The patient was taken to the operative suite and placed supine on the operating room table. The defect was identified. Appropriate markings were made with a marking pen to plan the repair. The area was infiltrated with Lidocaine 1% with epinephrine 1:100,000 buffered with sodium bicarbonate 8.4% in a 1:10 ratio and prepped with iodine and draped with sterile towels. The wound was debeveled and undermined widely. Hemostasis was obtained using monopolar dessication. The dermis and subcutaneous tissue were then approximated using buried vertical mattress sutures. Care was taken to orient tension vectors of the closure to minimize distortion of free margins. Cones of redundant tissue were then excised within relaxed skin tension lines on both sides of the defect and additional buried sutures were placed in a similar fashion where needed. Percutaneous simple running sutures were carefully placed for maximum eversion and meticulous approximation. Repair Size: 3.5 cm Sutures Used: monocryl 5-0;Fast Absorbing Gut 5-0. The wound was cleansed with saline and ointment was applied along the wound surface. A sterile pressure dressing was applied. Wound care instructions were given verbally and in writing. The patient left the operating suite in stable condition. Patient was informed that additional refinement of the resulting surgical scar may be used as a second stage of this reconstruction. The Attending surgeon was present and always immediately available. Sebastien Chacon M.D. PGY-3 dermatology resident Kendra Underwood MD PROCEDURE/MINOR SURG ICAL ORDERABLES * PATHOLOGY/GENETICS HISTORICAL-ONBASE (04/13/2011) 04/13/2011 Historical Provider LAB - CHEMISTRY O RDERABLES [facility] Care Teams Fryer Operator Relationship Specialty Start Date End Date Fazal Davis MD [address] [place] [address] PCP - General 03/12/18
--- OUTSIDE RECORDS SUMMARY | 2024-12-08 11:49 | XMS_ITS | Encounter Summary ---
Author Organization [facility] Address [address] [place] [address] Care Team Providers Care Automatic Edger Name Role Phone Fazal Davis MD Primary Care Provider [phone] Encounter Details Date Type Department Care Team (Late st Contact Info) Description 06/15/2021 Lab Requisition [facility] DermPath Lab [address] [place] [address] Kendra Underwood MD [address] [facility] [address] DEPT OF DERMATOLOGY [place], [place] [id number] Social History Tobacco Use Types Packs/Day Years Used Date Smoking Tobacco: Every Day Smokeless Tobacco: Never Alcohol Use Standard Drinks/Week Comments No 0 (1 standard drink = 0.6 oz pur e alcohol) Sex and Gender Information Value Date Recorded Sex Assigned at Not on file Gender Identity Not on file Sexual Orientation Not on file documented as of this encounter Plan of Treatment Not on file documented as of this encounter Procedures Procedure Name Priority Date/Time Associated Diagnosis Comments DERMPATH SLIDE CONSULT Routine 06/15/2021 12:00 AM CDT documented in this encounter Results * DERMPATH SLIDE CONSULT (06/15/2021 12:00 AM CDT) Case Report Dermatopathology Report Case: [id number] Authorizing Provider: Kendra Underwood MD Collected: 06/15/2021 12:00 AM Ordering Location: [facility] Received: 06/15/2021 10:14 AM Pathologist: Jose Alejandro Song MD Specimen: Slide(s), Left lower vermilion lip, OSC# [id number] 4:19 PM CDT DERMATOPATHOLOGY LABORATORY Final Diagnosis Specimen A. 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 Appt Date: 07/04/2021 Any additional sections, special stains or immunohistochemical stains performed by our laboratory will be kept here on file. 4:19 PM CDT DERMATOPATHOLOGY LABORATORY Microscopic Description Specimen A. Slide(s), Left lower vermilion lip, OSC# [id number]: The epidermis shows parakeratosis, full thickness disorderly [...] characteristic determined by the Dermatopathology Laboratory at [facility], directed by Dr. Juan Song. These tests need not be, and therefore are not, approved by the [place] Food and Drug Administration. The tests are used for clinical purposes. Billing Codes Specimen Charges Stain Charges 07039 1 4:19 PM CDT DERMATOPATHOLOGY LABORATORY Embedded Images 4:19 PM CDT DERMATOPATHOLOGY LABORATORY Pathology/Cytolog y SLIDE / Unknown 06/15/2021 06/15/2021 10:14 AM CDT Kendra Underwood MD LAB - PATHOLOGY/CYTO LOGY ORDERABLES DERMATOPATHOLOGY LABORATORY [facility] - Department of Dermatology [facility] Medicine [address] [place] [address], [address] [phone] documented in this encounter Visit Diagnoses Not on filedocumented in this encounter Care Teams Automatic Edger Relationship Specialty Start Date End Date Fazal Davis MD [address] [place] [address] PCP - General 03/12/18 documented as of this encounter
--- OUTSIDE RECORDS SUMMARY | 2024-12-08 11:49 | XMS_ITS | Referral Summary ---
Author Organization [facility] Address [facility]ly [facility] [place] [address] Care Team Providers Care Hydrostatic Tubing Tester Name Role Phone Fazal Davis MD Primary Care Provider Ayan Saunders MD Unavailable Markos Jane MD Unavailable Andrew Bonilla MD Unavailable Shabana Negron MD Unavailable [phone] Seferino Evangelista MD Unavailable [phone] Encounters Date Type Department Care Team Description 11/16/2024 11:45 AM [facility] Office Visit Cardiovascular and Thoracic Surgery [address] [facility] [address] [place] [address] Seferino Evangelista MD Atherosclerosis of [place] arteries of extremities with intermittent claudication, bilateral legs (HCC); PAD (peripheral artery disease) (HCC); Atherosclerosis of abdominal aorta (HCC) 11/13/2024 10:30 AM [facility] - 11/13/2024 12:50 PM [facility] Surgery [facility] [address] [place] [address] Shabana Negron MD ANGIOGRAPHY - BILATERAL EXTREMITY S&I [id number] 11/13/2024 8:37 AM [facility] - 11/13/2024 4:50 PM [facility] Hospital Encounter [facility] [address] [place] [address] Shabana Negron MD Atherosclerosis of [place] arteries of extremities with intermittent claudication, bilateral legs (HCC) Discharge Disposition: Discharge to home or self care 11/04/2024 Telephone [facility] Cardiology [address] [place] [phone] Yumiko Reed NP Test Results 11/02/2024 10:25 AM [facility] - 11/02/2024 11:59 PM [facility] Hospital Encounter [facility] - Imaging [address] [place] [phone] Atherosclerosis of abdominal aorta (HCC) Discharge Disposition: Discharge to home or self care 11/02/2024 10:00 AM [facility] Office Visit [facility] Cardiology [address] [place] [phone] Shabana Negron MD Peripheral arterial disease (HCC) (Primary Dx) 11/02/2024 7:56 AM [facility] - 11/02/2024 11:59 PM [facility] Hospital Encounter [facility] Vascular Lab [address] [place] [phone] Atherosclerosis of [place] arteries of extremities with intermittent claudication, bilateral legs (HCC) Discharge Disposition: Discharge to home or self care 10/26/2024 Telephone [facility] Cardiology [address] [place] [phone] Yumiko Reed NP 10/21/2024 Telephone [facility] Cardiology [address] [place] [phone] Shabana Negron MD 10/21/2024 Telephone [facility] Cardiology [address] [place] [phone] Yumiko Reed NP 10/21/2024 Telephone [facility] Cardiology [address] [place] [phone] Shabana Negron MD AIF Scheduling 10/20/2024 12:30 PM [facility] Office Visit [facility] Cardiology [address] [place] [phone] Yumiko Reed NP Atherosclerosis of abdominal aorta (HCC) (Primary Dx); Edema of left lower leg; PAD (peripheral artery disease) ([facility]); Coronary artery disease involving [place] coronary artery of [place] heart without angina pectoris; S/P TAVR (transcatheter aortic valve replacement); Essential hypertension; Bradycardia 10/16/2024 Telephone [facility] Cardiology [address] [place] [phone] Shabana Negron MD follow up ER 10/15/2024 2:30 PM [facility] - 10/15/2024 8:02 PM [facility] Emergency [facility] Emergency Department [address] [place] [phone] Arianne Elmore MD Leg swelling (Primary Dx) Discharge Disposition: Discharge to home or self care 10/15/2024 Telephone [facility] Cardiology [address] [place] [phone] Shabana Negron MD Leg Swelling 10/09/2024 Telephone [facility] Cardiology [address] [place] [phone] Shabana Negron MD 10/02/2024 11:41 AM [facility] - 10/03/2024 1:40 PM [facility] Hospital Encounter [address] [phone] Timoteo Lorenzo MD Tallam, Rama D., MD PVD (peripheral vascular disease) ([facility]) Discharge Disposition: Discharge to home or self care 10/02/2024 12:55 PM [facility] - 10/02/2024 3:15 PM [facility] Surgery [facility] [address] [place] [phone] Timoteo Lorenzo MD ANGIOGRAPHY - UNILATERAL EXTREMITY S&I [id number] 09/14/2024 Telephone [facility] Cardiology [address] [place] [address] Shabana Negron MD AIF Scheduling from Last 3 Months Allergies Active Allergy Reactions Criticality Noted Date Comments Penicillins Hives Medium 60 years ago; cefazolin was administered in 2019 & 2021 Medications cyanocobalamin (Vitamin B-12) 1,000 mcg tablet Take 1 tablet (1,000 mcg total) by mouth every evening Active albuterol HFA (PROVENTIL HFA,VENTOLIN HFA,PROAIR HFA) 90 mcg/actuation inhaler Inhale 2 puffs 2 (two) times a day Active coenzyme Q10 200 mg capsule Take 1 capsule (200 mg total) by mouth daily Active aspirin 81 mg enteric coated tablet Take 1 tablet (81 mg total) by mouth every evening Active rosuvastatin (CRESTOR) 20 mg tablet TAKE 1 TABLET BY MOUTH DAILY 90 tablet 3 4 Active vitamin E acetate (VITAMIN E ORAL) Take 450 mg by mouth daily Active nitroglycerin (NITROLINGUAL) 400 mcg/spray spray Place 1 spray under the tongue every 5 (five) minutes as needed for chest pain 1 g 5 Active furosemide (LASIX) 20 mg tablet Take 1 tablet (20 mg total) by mouth daily as needed (for left leg swelling) 10 tablet 5 Active Additional Information Patient not taking.Reported on 11/16/2024 clopidogreL (PLAVIX) 75 mg tablet Take 1 tablet (75 mg total) by mouth daily 90 tablet 3 5 Active clopidogreL (PLAVIX) 75 mg tablet TAKE 1 TABLET(75 MG) BY MOUTH DAILY 90 tablet 3 4 11/09/19 25 Discontin ued(Reord er) Active Problems Problem Noted Date Diagnosed Date Peripheral arterial disease 10/02/2024 Atherosclerosis of [place] ar teries of extremities with intermittent claudication, bilateral legs 08/13/2024 Other chest pain 07/15/2024 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 Assessment & Plan (03/31/2024 10:06 AM CDT): Stable status post TAVR, asymptomatic. Continue same therapy. Assessment & Plan (04/02/2023 9:56 AM CDT): Stable status post TAVR, asymptomatic. Continue same therapy. Bilateral pulmonary contusion 06/23/2022 Assessment & Plan (06/23/2022 10:32 AM CDT): Suspect based on symptoms of pain, and recent CPR administration. Supportive care for now. PVD (peripheral vascular disease) 01/06/2018 Assessment & Plan (03/31/2024 10:06 AM CDT): Stable, without significant claudication. Continue same therapy. Continue diet and exercise. Assessment & Plan (04/02/2023 9:57 AM CDT): Stable, without significant claudication. Continue same therapy. Continue diet and exercise. Discontinue smoking. Assessment & Plan (04/10/2022 1:15 PM CDT): Stable claudication. Continue same therapy. Continue diet and exercise. Assessment & Plan (04/10/2021 12:43 PM CDT): Stable claudication. As above, I resumed Plavix 75 mg daily. Otherwise, continue same therapy. Continue diet and exercise. Discontinue smoking. Assessment & Plan (04/04/2020 1:05 PM CDT): Stable, without significant claudication. Continue same therapy. Continue diet and exercise. Assessment & Plan (01/08/2019 11:39 AM CDT): Stable, but increasing claudication. I recommended bilateral lower extremity arterial Dopplers, and further recommendations will await these results. Continue same therapy plus Plavix 75 mg daily. Continue diet and exercise. Discontinue smoking. Assessment & Plan (01/07/2018 10:15 AM CDT): Stable. As above, I again strongly advised him to stop smoking completely, and to diet and exercise regularly. Continue same therapy. Essential hypertension, benign 01/06/2018 Assessment & Plan (03/31/2024 10:06 AM CDT): Well controlled. Continue same therapy. Continue diet and exercise. Assessment & Plan (04/02/2023 9:57 AM CDT): Blood pressure is well controlled. Continue same therapy. Continue diet and exercise. Assessment & Plan (04/10/2022 1:15 PM CDT): Blood pressure is mildly elevated today, but is well controlled in general. Continue same therapy. Continue diet and exercise. Assessment & Plan (04/10/2021 12:44 PM CDT): Blood pressure is well controlled. Continue same therapy. Continue diet and exercise. Assessment & Plan (04/04/2020 1:06 PM CDT): Blood pressure is very well controlled. Continue same therapy. Continue diet and exercise. Assessment & Plan (01/08/2019 11:37 AM CDT): Blood pressure is well controlled. Continue same therapy. Continue diet and exercise. Assessment & Plan (01/07/2018 10:14 AM CDT): Blood pressure is extremely well controlled. Continue same therapy. Continue diet and exercise. Hypercholesteremia 01/06/2018 Assessment & Plan (03/31/2024 10:06 AM CDT): Well controlled. Continue high-intensity statin therapy. Assessment & Plan (04/02/2023 9:57 AM CDT): Well controlled. Continue high-intensity statin therapy. Assessment & Plan (04/10/2022 1:16 PM CDT): Lipids are well controlled. Continue high-intensity statin therapy. Assessment & Plan (04/10/2021 12:44 PM CDT): Lipids are well controlled. Continue high-intensity statin therapy. Assessment & Plan (04/04/2020 1:06 PM CDT): Lipids are well controlled. Continue high-intensity statin therapy. Assessment & Plan (01/08/2019 11:38 AM CDT): Lipids are well controlled. Continue high-intensity statin therapy. Assessment & Plan (01/07/2018 10:15 AM CDT): Lipids are very well controlled. Continue high-intensity statin therapy. Multiple pulmonary nodules 09/17/2016 Overview (10/20/2019): 10/21/[address] All nodule stable All nodules 4 mm or less in size Assessment & Plan (10/20/2019 1:30 PM [facility]): 10/21/[address] All nodule stable All nodules 4 mm or less in size Assessment & Plan (10/21/2018 4:19 PM [facility]): No change in current CT scan and I the lymph nodes in the mediastinum or in lung nodules. Smoking cessation discussed Assessment & Plan (10/29/2017 1:02 PM [facility]): Stable with issue, repeat CT one year Chronic obstructive pulmonary disease ([facility]) 09/17/2016 Overview (01/18/2017): Chronic obstructive pulmonary disease, unspecified COPD type Assessment & Plan (06/23/2022 10:31 AM CDT): COPD is worsening. Discussed monitoring symptoms and use of quick-relief medications and contacting us early in the course of exacerbations. Warning signs of respiratory distress were reviewed with the patient. Medication changes per orders. Short steroid burst BD's Home o2 evaluation in AM Assessment & Plan (10/20/2019 1:28 PM [facility]): Mild, has tried inhalers in the past and did not feel they benefitted him Will reassess one year, if breathing problems call us to reevaluate Yearly flu shot Assessment & Plan (10/21/2018 4:18 PM [facility]): There has been deterioration in peak flows making me think his COPD is worse. He has no desire to use any inhalers, he was given samples of Anoro by his primary care physician and on hearing that is $300 a month prefers not to take it. There is no evidence that Anoro reduces mortality so use is only for symptom control. As in previous years he prefers no medications but will let me know if he changes his mind. Tobacco, smoking cessation again discussed and strongly recommended. Assessment & Plan (10/29/2017 1:04 PM [facility]): Stable on p.r.n. albuterol, understands there are many other inhalers available if he gets shortness of breath problems Make sure he has had the pneumonia, Prevnar 13 shot Flu shot every July/August Chronic obstructive pulmonary disease 09/17/2016 Overview (09/05/2022): Chronic obstructive pulmonary disease, unspecified COPD type Last Assessment & Plan: Mild, has tried inhalers in the past and did not feel they benefitted him Will reassess one year, if breathing problems call us to reevaluate Yearly flu shot Tobacco dependence syndrome 08/24/2015 Overview (01/17/2017): Tobacco abuse Assessment & Plan (06/23/2022 10:32 AM CDT): The detrimental effects of tobacco use were discussed with the patient. We discussed that smoking is a major risk factor for heart attacks, strokes, chronic obstructive pulmonary disease, and cancer. The importance of discontinuing the use of tobacco was discussed with the patient. Methods to aid in tobacco cessation including the cold Mcleod method, nicotine replacement therapy, and pharmacologic therapy were discussed. Electronic cigarettes and acupuncture were also discussed. Assessment & Plan (10/20/2019 1:27 PM [facility]): One pack per day Discussed reduction in rates from heart disease, lung disease and cancer if he quits smoking He will consider the advice but is not ready to commit to quitting At age 79 no longer qualifies for yearly CT Assessment & Plan (10/21/2018 4:19 PM [facility]): Again reaffirms that he has no interest in quitting smoking and he enjoys smoking a great deal. Assessment & Plan (10/29/2017 1:01 PM [facility]): Still one pack per day, nose quitting would reduce the chances of of heart disease, lung disease and cancer CT one year Mediastinal lymphadenopathy 08/24/2015 Overview (10/20/2019): Resolved CT 10/21/2018 Assessment & Plan (10/20/2019 1:29 PM [facility]): Resolved CT 10/19/2018 Assessment & Plan (10/21/2018 4:20 PM [facility]): No change on today's chest CT. Assessment & Plan (10/29/2017 1:02 PM [facility]): Stable, CT one year Tobacco dependence syndrome 08/24/2015 Overview (09/05/2022): Tobacco abuse Last Assessment & Plan: One pack per day Discussed reduction in rates from heart disease, lung disease and cancer if he quits smoking He will consider the advice but is not ready to commit to quitting At age 79 no longer qualifies for yearly CT Coronary arteriosclerosis in [place] artery 01/22 Overview (01/18/2017): MIMI JEROME VSSL Assessment & Plan (03/31/2024 10:05 AM CDT): Stable, without angina. I made no change in his excellent medical regimen today. I asked him to follow up with me annually, or sooner if needed. I again advised him to diet and exercise regularly, and to stop smoking completely. Assessment & Plan (04/02/2023 9:56 AM CDT): Stable, without angina. I made no change in his excellent medical regimen today. I asked him to follow up with me annually, or sooner if needed. I again advised him to diet and exercise regularly, and to stop smoking completely. Assessment & Plan (04/10/2022 1:15 PM CDT): Stable angina. I made no change in his excellent medical regimen today. I asked him to follow up with me annually, or sooner if needed. An echocardiogram will be done then. I again advised him to diet and exercise regularly, and to stop smoking completely. Assessment & Plan (04/10/2021 12:43 PM CDT): Stable angina. I made no change in his excellent medical regimen today, except to resume Plavix 75 mg daily and I decreased aspirin to 81 mg daily. I asked him to follow up with me annually, or sooner if needed. I again advised him to diet and exercise regularly, and to stop smoking completely. Assessment & Plan (04/04/2020 1:05 PM CDT): Stable angina. I made no change in his excellent medical regimen today. I asked him to follow up with me annually, sooner if needed. An echocardiogram will be done then. I again advised him to diet and exercise regularly, and to stop smoking completely. Assessment & Plan (01/08/2019 11:39 AM CDT): Stable, mild chronic and stable angina only. I made no change in his excellent medical regimen today except to add back Plavix 75 mg daily due to his increased claudication. I asked him to follow up with me annually, or sooner if needed. I again advised him to diet and exercise regularly, and most importantly to stop smoking completely. Assessment & Plan (01/07/2018 10:14 AM CDT): Stable angina, without change. I made no change in his excellent medical regimen today. I asked him to follow up with me annually, or sooner if needed. I again strongly advised him to stop smoking completely, and to diet and exercise regularly. Resolved Problems Problem Noted Date Diagnosed Date Resolved Date CAD (coronary artery disease) 06/15/2022 04/01/2023 Atherosclerosis of [place] ar samson of left lower extremity with intermittent claudication 05/22/2019 04/01/2023 Overview (05/22/2019): Added automatically from request for surgery [id number] Nonrheumatic aortic valve stenosis 01/03/2016 04/01/2023 Overview (01/17/2017): Aortic stenosis, non-rheumatic Assessment & Plan (07/18/2022 3:19 PM CDT): S/p TAVR 1 month ago. Valve is functioning well. We will plan for a 1 year TAVR follow up Assessment & Plan (04/10/2022 1:15 PM CDT): Stable, moderate aortic stenosis with preserved left ventricular function. Continue same therapy. As above, an echocardiogram will be done in follow-up. Assessment & Plan (04/10/2021 12:43 PM CDT): Stable, moderate aortic stenosis only. Continue same therapy. Assessment & Plan (04/04/2020 1:05 PM CDT): Stable, mild aortic stenosis without symptoms. Continue same therapy. As above, an echocardiogram will be done in follow-up. Assessment & Plan (01/08/2019 11:37 AM CDT): Stable, mild aortic stenosis without symptoms. Continue same therapy. Assessment & Plan (01/07/2018 10:14 AM CDT): Stable, mild aortic stenosis without symptoms. Continue same therapy. Nonrheumatic aortic valve stenosis 01/03/2016 04/01/2023 Overview (09/05/2022): Aortic stenosis, non-rheumatic Last Assessment & Plan: Stable, moderate aortic stenosis only. Continue same therapy. Rhinitis 08/24/2015 05/26/2019 Overview (01/17/2017): Rhinitis Sinusitis 08/24/2015 05/26/2019 Overview (01/17/2017): Sinusitis Chronic coronary artery disease 08/24/2015 10/29/2017 Overview (01/17/2017): Coronary artery disease Aortic valve disorder 01/22/20132017 Overview (01/17/2017): AORTIC VALVE DISORDER Coronary arteriosclerosis in [place] artery 01/22/2013 04/01/2023 Overview (09/05/2022): CRALYX ATHRSCL NATVE VSSL Last Assessment & Plan: Stable angina. I made no change in his excellent medical regimen today, except to resume Plavix 75 mg daily and I decreased aspirin to 81 mg daily. I asked him to follow up with me annually, or sooner if needed. I again advised him to diet and exercise regularly, and to stop smoking completely. Immunizations Immunization Administration Dates Next Due Influenza, Quad, Adjuvantated, Intramuscular Influenza, Quadrivalent, Hig h Dose, Preservative Free, Intrr 11/03/2021 Moderna SARS-CoV-2 Monovalent Vaccination (12+ Y RS) 12/15/2020,11/17/2020 Social History Tobacco Use Types Packs/Day Years Used Date Smoking Tobacco: Heavy Smoker Cigarettes 0.1 70.2 Started: 1954 Smokeless Tobacco: Never Tobacco Cessation:Ready to Q uit: Not Asked; Counseling Given: Not Answered Alcohol Use Standard Drinks/Week Comments No 0 (1 standard drink = 0.6 oz pur e alcohol) Social Connection and Isolation Panel [NHANES] A nswer Date Recorded In a typical week, how many times do you talk on the phone with family, friends, or neighbors? Three times a week 06/19/2022 How often do you get togethe r with friends or relatives? Once a week 06/19/2022 How often do you attend chur ch or baptism services? Never 06/19/2022 Do you belong to any clubs o r organizations such as adventism groups, unions, fraternal or athletic groups, or school groups? No 06/19/2022 How often do you attend meet ings of the clubs or organizations you belong to? Never 06/19/2022 Are you , , di vorced, , never , or living with a partner? 06/19/2022 AUDIT-C Answer Date Recorded Q1: How often do you have a drink containing alcohol? Never 07/23/2024 Q2: How many drinks containi ng alcohol do you have on a typical day when you are drinking? Patient does not drink Q3: How often do you have si x or more drinks on one occasion? Never 07/23/2024 Overall Financial Resource Strain (CARDIA) Answe r Date Recorded How hard is it for you to pa y for the very basics like food, housing, medical care, and heating? Not hard at all 06/19/2022 Hunger Vital Sign Answer Date Recorded Within the past 12 months, y ou worried that your food would run out before you got the money to buy more. Never true 06/19/20 22 Within the past 12 months, t he food you bought just didn't last and you didn't have money to get more. Never true 06/19/2022 PRAPARE - Transportation Answer Date Re corded In the past 12 months, has l ack of transportation kept you from medical appointments or from getting medications? No 03/2022 In the past 12 months, has l ack of transportation kept you from meetings, work, or from getting things needed for daily living? No 06/19/2022 Personal Safety Answer Date Recorded Have you ever been in or are you currently in a harmful physical or emotional relationship or is someone making you feel afraid or unsafe? Denies 11/13/2024 Sex and Gender Information Value Date Recorded Sex Assigned at Not on file Legal Sex Male 2:41 PM [facility] Gender Identity Not on file Sexual Orientation Not on file Last Filed Vital Signs Vital Sign Reading Time Taken Comments Blood Pressure 118/68 11/16/2024 12:31 PM [facility] Pulse 58 11/16/2024 12:31 PM [facility] Regu lar Temperature 36.3 C (97.4 F) 10/15/2024 12:34 PM [facility] Respiratory Rate 16 11/16/2024 12:31 PM [facility] Oxygen Saturation 90% 11/13/2024 4:00 PM [facility] Inhaled Oxygen Concentration - - Weight 81.6 kg (180 lb) 11/16/2024 12:31 PM [facility] Height 172.7 cm (5' 8 ) 11/16/2024 12:31 PM [facility] Body Mass Index 27.37 11/16/2024 12:31 PM [facility] Plan of Treatment Not on file Medical Devices Implanted Type Area Finishing Operator Device Identifier Shelf Expiration Date Model / Serial / Lot Bard Peripheral Vascular [id number] Lifestent 6mm 6fr 80mm 130cm Self Expand Catheter Helical - [id number] Implanted:Qty: 1 on 06/01/2019 by Andrew Bonilla MD at [facility] Aneurysm Coils Left: Femoral Bard Peripheral Vascular [id number] 10/18/2019 [id number] / / [id number] Description:Implanted Left S uperficial Femoral Artery White V[employer] 09985-34 Starclose Se Od6 Fr Clip Vascular Device Closure Nitinol Sterile - [id number] Implanted:Qty: 1 on 06/01/2019 by Andrew Bonilla MD at [facility] Other - see comments Right: Femoral [employer] V[employer] [id number] 02/12/2020 [id number] Description:Vascular Closure Device implanted Right Femoral Artery [employer] 14fr Manta Vascular Closure Device 2156 - S0 - [id number] Implanted:Qty: 1 on 06/15/2022 by Ovi Velez MD at [facility] Other - see comments Right: Femoral [employer] 05/06/2023 2156 / 0 / [id number] Description:Right femoral ar samson Coello [employer] Valve Heart 26mm Masrha 3 Transcatheter 9343ays03m - [id number] - [id number] Implanted:Qty: 1 on 06/22/2022 by Ovi Velez MD at [facility] Prosthetic Valve [employer]iences 01/16/2025 [id number] / [id number] / [employer] Marj Stent Drug Eluting S Megatron Us Mr 5.89l06ek [id number] - S1 - [id number] Implanted:Qty: 1 on 06/15/2022 by Ovi Velez MD at [facility] Stent N/A: Coronary Artery [employer] Marj 10/30/2022 [id number] / / [id number] Description:CARMELO to RCA [employer] Marj Stent Drug Eluting S Megatron Us Mr 5.21l74ua [id number] - S1 - [id number] Implanted:Qty: 1 on 06/15/2022 by Ovi Velez MD at [facility] Stent N/A: Coronary Artery [employer] 11/29/2022 [id number] / / [id number] Bard Peripheral Vascular Stent Peripheral Over The Wire Lifestent [id number] cm Nitinol [id number] - S0 - [id number] Implanted:Qty: 1 on 11/13/2024 by Shabana Negron MD at [facility] Stent N/A: Femoral [employer] Peripheral Vascular 06/30/2027 [id number] / 0 / [id number] Bard Peripheral Vascular Stent Peripheral Over The Wire Lifestent [id number] m Nitinol [id number] - S0 - [id number] Implanted:Qty: 1 on 11/13/2024 by Shabana Negron MD at [facility] Stent N/A: Femoral Bard Peripheral Vascular 06/09/2027 [id number] / 0 / [id number] [employer] Vascade 6/7fr Bioabsorbable Vascular System Compression Collagen [id number] - S0 - [id number] Implanted:Qty: 1 on 06/22/2022 by Ovi Velez MD at [facility] [employer] 03/14/2024 [id number] / 0 / [id number] Procedures Procedure Name Priority Date/Time Associated Diagnosis Comments POCT ACTIVATED CLOTTING TIME, LOW RANGE Routine 11/13/2024 1:25 PM [employer] [employer] PERIPHERAL RUN OFF CATH Routine 11/13/2024 1:24 PM [facility] [employer] Atherosclerosis of [place] arteries of extremities with intermittent claudication, bilateral legs (HCC) REVENDVAS FEMPOP UN WSTN 21925 Routine 11/13/2024 1:24 PM [facility] [facility] Atherosclerosis of [place] arteries of extremities with intermittent claudication, bilateral legs (HCC) CYLINDER FILLER LITHOTRIPSY ILIAC-FEM/POP ARTERY C9764 Routine 11/13/2024 1:24 PM [facility] Atherosclerosis of [place] arteries of extremities with intermittent claudication, bilateral legs (HCC) POCT ACTIVATED CLOTTING TIME, LOW RANGE Routine 11/13/2024 12:21 PM [employer] [employer] CTA ABDOMINAL AORTA AND BILATERAL ILIOFEMORAL RUNOFF Schedule Routine, Read Routine (OP Routine) 11/02/2024 12:00 PM [facility] [facility] Atherosclerosis of abdominal aorta (HCC) VL US ARTERIAL DUPLEX LOWER EXTREMITY BILATERAL Schedule Routine, Read Routine (OP Routine) 11/02/2024 9:50 AM [facility] Atherosclerosis of [place] arteries of extremities with intermittent claudication, bilateral legs (HCC) ECG 12-LEAD Routine 10/20/2024 1:48 PM [facility] Bradycardia CTA LOWER EXTREMITY LEFT NOT FOR ISCHEMIA ED Urgent/IP Urgent 10/15/2024 5:43 PM [facility] [employer] US VEIN DUPLEX LOWER EXTREMITY LEFT LIMITED ED Urgent/IP Urgent 10/15/2024 4:11 PM [facility] TROPONIN T HIGH-SENSITIVITY 2-HOUR Timed 10/15/2024 3:34 PM [facility] [employer] XR CHEST PA LATERAL 2 VIEWS ED 10/15/2024 1:42 PM [facility] [employer] EGFR STAT 10/15/2024 1:05 PM [facility] [employer] DIFFERENTIAL AUTO STAT 10/15/2024 1:0 5 PM [facility] COMPREHENSIVE METABOLIC PANEL STAT 10/15/2024 1:05 PM [employer] TROPONIN T HIGH-SENSITIVITY SERIES (BASELINE, 2HR, 4HR, 6HR) STAT 10/15/2024 1:05 PM [facility] CBC WITH AUTO DIFFERENTIAL STAT 10/15/2024 1:05 PM [facility] [employer] ECG 12-LEAD STAT 10/15/2024 12:45 PM [facility] [employer] EGFR Routine 10/03/2024 4:41 AM [facility] [employer] DIFFERENTIAL AUTO Routine 10/03/2024 4:4 1 AM [facility] THYROID FUNCTION CASCADE Routine 10/03/2024 4:41 AM [facility] [employer] CBC WITH AUTO DIFFERENTIAL Routine 10/03/2024 4:41 AM [facility] [employer] BASIC METABOLIC PANEL Routine 10/03/2024 4:41 AM [facility] [employer] POCT ACTIVATED CLOTTING TIME, LOW RANGE Routine 10/02/2024 6:55 PM [employer] POCT ACTIVATED CLOTTING TIME, LOW RANGE Routine 10/02/2024 6:32 PM [employer] POCT ACTIVATED CLOTTING TIME, LOW RANGE Routine 10/02/2024 5:56 PM [facility] [employer] POCT ACTIVATED CLOTTING TIME, LOW RANGE Routine 10/02/2024 4:51 PM [facility] [employer] ANGIOGRAPHY UNILATERAL EXTREMITY S&I 53938 Routine 10/02/2024 3:48 PM [facility] [facility] PVD (peripheral vascular disease) (HCC) CYLINDER FILLER LITHOTRIPSY ILIAC-FEM/POP ARTERY C9764 Routine 10/02/2024 3:48 PM [facility] [facility] PVD (peripheral vascular disease) (HCC) REVENDVAS FEMPOP UN WPTA 35110 Routine 10/02/2024 3:48 PM [facility] PVD (peripheral vascular disease) (HCC) IVUS NON-COR 1ST VESSEL Routine 10/02/2024 3:48 PM [facility] PVD (peripheral vascular disease) (HCC) POCT ACTIVATED CLOTTING TIME, LOW RANGE Routine 10/02/2024 3:27 PM [facility] [employer] POCT ACTIVATED CLOTTING TIME, LOW RANGE Routine 10/02/2024 2:49 PM [facility] [employer] POCT ACTIVATED CLOTTING TIME, LOW RANGE Routine 10/02/2024 2:18 PM [facility] [employer] ECG 12-LEAD Routine 10/02/2024 12:30 PM [facility] PVD (peripheral vascular disease) (HCC) PROTIME-INR Routine 09/21/2024 3:00 PM [facility] PVD (peripheral vascular disease) (HCC) CBC WITH AUTO DIFFERENTIAL Routine 09/21/2024 3:00 PM [facility] [employer] PVD (peripheral vascular disease) (HCC) BASIC METABOLIC PANEL Routine 09/21/2024 3:00 PM [facility] PVD (peripheral vascular disease) (HCC) from Last 3 Months Results * (ABNORMAL) POCT Activated clotting time, low range (11/13/2024 1:25 PM [facility]) ACT 280(H) 123 - 168 sec Blood 11/13/2024 1:25 PM [facility] 11/13/2024 1:25 PM [employer] us Shabana Negron MD LAB POCT ORDERABLES - DEVICE Final Result [facility] [address] [place] [address] * CYLINDER FILLER LITHOTRIPSY ILIAC-FEM/POP ARTERY C9764, REVENDVAS FEMPOP UN WSTN 13117, PERIPHERAL RUN OFF CATH(11/13/2024 1:24 PM [facility]) Anatomical Region Laterality Modality X-Ray Angiograph y Narrative 11/26/2024 4:49 PM [facility] [employer] Images from the original result were not included. [facility] [address] [place] [address], [id number], [address] Aortoiliofemoral Angiography Procedure Report Mr. Rainey is an 84 year old male with peripheral arterial disease and bilateral Brice class II claudication. He is referred for peripheral angiography and possible intervention. Procedures Performed: Abdominal aortography Bilateral lower extremity angiography Crossover from left common femoral to right superficial femoral artery with 6F destination sheath Shockwave lithotripsy of the right superficial femoral artery CYLINDER FILLER and self expanding stent placement x 2 to the right superficial femoral artery Access: 6F left femoral artery Catheter: Omniflush Injection:Suprarenal Descending Aorta, infrarenal descending aorta, right common iliac artery, left common iliac artery, right common femoral artery, left common femoral artery, right superficial femoral artery, left superficial femoral artery, right popliteal artery, and left popliteal artery Closure: manual compression Anticoagulation: 8000 Units Heparin, Clopidogrel, and Aspirin Contrast: 75 ml Optiray Sedation: The patient was administered moderate sedation utilizing IV versed and fentanyl. The performing physician was present and supervising the administration of the medication throughout the sedation process. After verbal and written consent were obtained the patient was brought to the cardiac catheterization laboratory. There were prepped and draped in sterile fashion and a 6 [place] sheath was inserted in the left femoral artery using the modified Seldinger technique with ultrasound guidance.. Initial angiography of the abdominal aorta was performed using a 5F Omniflush catheter. The catheter was pulled back to the bifurcation of the iliac arteries and further angiography was performed. Findings: Abdominal aorta: No aneurysm or dissection noted. Right and left renal arteries patent without significant stenosis. All vessels moderate to severely diseased with ectatic segments and serial moderate stenoses. Right lower extremity: Common iliac artery: Patent with 50-70% mid vessel stenosis. External iliac artery: Patent with moderate diffuse disease Internal iliac artery: Patent Common femoral artery: Patent with 70% mid vessel stenosis Superficial femoral artery: 100% occluded proximally. Reconstitutes in the distal vessel with collaterals from the profunda. Popliteal artery: Patent with diffuse, severe calcific disease. Left lower extremty: Common iliac artery: Patent, moderate disease External iliac artery: Patent Internal iliac artery: Patent Common femoral artery:Patent with moderate diffuse disease Superficial femoral artery: Patent with patent stents Popliteal artery: Patent Interventional details: 4F Omniflush was used to crossover from left to right using a 0.035 x 260 mm [place] wire. 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 5.0 x 200 mm balloon was also used for dilation throughout the SFA. The 0.035 x 300 mm wire was exchanged for a 0.014 x 300 mm Mongo wire. Using a quickcross for exchange. 6.0 x 80 mm Shockwave lithotripsy balloon was advanced in the left SFA and deployed using 400 pulses throughout the artery in the proximal, mid, and distal segments. 6.0 x 300 mm Lutonix drug eluting balloon was advanced into the left SFA and deployed at nominal pressure for 3 minutes. 6.0 x 100 mm Lifestent was advanced into the mid SFA and deployed. 7.0 x 40 mm Lifestent was advanced into the proximal SFA and deployed without difficulty. Both stents were post-dilated with 6.0 x 100 mm compliant balloon at nominal pressure for 30 seconds Final angiography was performed demostrating 30% residual stenosis with ZULEYKA III flow. Timoteo Lorenzo MD 11/14/2024 6:04 PM us Shabana Negron MD CV CARDIAC CATH PROCEDURES F inal Result * (ABNORMAL) POCT Activated clotting time, low range (11/13/2024 12:21 PM [facility] [facility]) ACT >400(H) 123 - 168 sec Blood 11/13/2024 12:2 1 PM [facility] 11/13/2024 12:21 PM [facility] [employer] us Shabana Negron MD LAB POCT ORDERABLES - DEVICE Final Result [facility] [address] Department [place] [address] * CTA Abdominal Aorta And Bilateral Iliofemoral Runoff (11/02/2024 12:00 PM [facility]) Anatomical Region Laterality Modality Body Bilateral Computed Tomogra phy 11/02/2024 2:28 PM [facility] Impressions 11/02/2024 3:08 PM [facility] 1. Right superficial femoral artery occlusion with reconstitution of the right popliteal artery via branches of the deep femoral artery. 2. Patent left superficial femoral artery stent. 3. Bilateral lower extremity peripheral artery disease as described above with 2-vessel runoff to the ankles bilaterally. 4. Dilatation of the abdominal aorta measuring up to 30 x 30 mm with nonocclusive mural thrombus. 5. New partially imaged right upper lobe consolidation, which may represent pneumonia. Recommend follow-up CT chest in 3 months to document resolution. Recommend follow up of the Incidental right upper lobe consolidation Additional Imaging in [address] chest. Dictated by: Bandar Cary MD The radiology attending physician has personally reviewed this study, and had reviewed and/or edited this written report and agrees with it. Electronically signed by: Jesus Rowell M.D. Narrative 11/02/2024 3:08 PM [facility] [facility] EXAMINATION: CT ANGIOGRAPHY OF THE ABDOMEN, PELVIS, AND LOWER EXTREMITIES WITH CONTRAST HISTORY: Claudication TECHNIQUE: CT angiography of the abdomen, pelvis, and lower extremities was performed following the uneventful intravenous administration of 120 ml Optiray-350. Vascular 3D images were generated on a dedicated workstation and also reviewed. COMPARISON: Same-day arterial duplex, CTA 10/15/2024 FINDINGS: VASCULAR FINDINGS: Abdominal Aorta and Branches: Celiac axis: no significant stenosis SMA: no significant stenosis EMERSON: Moderate stenosis at the origin Right renal vessels: no significant stenosis Left renal vessels: no significant stenosis Infrarenal aorta: Dilatation of the abdominal aorta measuring up to 30 x 30 mm with nonocclusive thrombus again seen. Pelvic Vessels: R. Common iliac artery: Mild stenosis R. External iliac artery: Mild stenosis R. Internal iliac artery: Moderate stenosis L. Common iliac artery: Mild stenosis L. External iliac artery: Mild stenosis L. Internal iliac artery: Mild stenosis Right Lower Extremity: R. Common femoral artery: Moderate multifocal stenosis. R. Profunda femoris artery: Moderate to severe stenosis at the origin R. Superficial femoral artery: Occluded proximally R. Popliteal artery: Reconstituted via branches of the deep femoral artery. Severe multifocal stenosis. R. Anterior tibial artery: Diminutive distally without definite runoff at the ankle. R. Tibioperoneal trunk: Moderate stenosis R. Posterior tibial artery: Mild stenosis R. Peroneal artery: no significant stenosis R. Dorsalis pedis artery: Diminutive R. Plantar artery: no significant stenosis Left Lower Extremity: L. Common femoral artery: Moderate stenosis just proximal to the bifurcation L. Profunda femoris artery: no significant stenosis L. Superficial femoral artery: Patent stent. Moderate to severe stenosis proximally and distally to stent. L. Popliteal artery: Moderate to severe stenosis L. Anterior tibial artery: Diminutive distally L. Tibioperoneal trunk: no significant stenosis L. Posterior tibial artery: no significant stenosis L. Peroneal artery: no significant stenosis L. Dorsalis pedis artery: Diminutive L. Plantar artery: no significant stenosis NON-VASCULAR FINDINGS: Partially imaged right upper lobe consolidation new from 05/09/2023. Bilateral lower lobe bronchial wall thickening. No pleural effusion. 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 Imaged heart size is normal. No pericardial effusion. Normal angiographic appearance of liver. Cholelithiasis without CT evidence of cholecystitis. Normal angiographic appearance the spleen, pancreas, and bilateral adrenal glands. Kidneys enhance symmetrically. Bilateral renal cysts. No hydronephrosis or nephrolithiasis. Large and small bowel are normal caliber. Diverticulosis without evidence of diverticulitis. Appendix is normal. Duodenal diverticula. No abdominal or pelvic lymphadenopathy. Urinary bladder is underdistended. Prostate is enlarged. Postsurgical changes from posterior instrumented L4-L5 spinal fusion. Severe L5-S1 degenerative disc disease. No suspicious osseous lesion. Bilateral lower extremity edema. Surgical clips in the left lower extremity. Procedure Note Jesus Rowell MD - 11/02/2024 EXAMINATION: CT ANGIOGRAPHY OF THE ABDOMEN, PELVIS, AND LOWER EXTREMITIES WITH CONTRAST HISTORY: Claudication TECHNIQUE: CT angiography of the abdomen, pelvis, and lower extremities was performed following the uneventful intravenous administration of 120 ml Optiray-350. Vascular 3D images were generated on a dedicated workstation and also reviewed. COMPARISON: Same-day arterial duplex, CTA 10/15/2024 FINDINGS: VASCULAR FINDINGS: Abdominal Aorta and Branches: Celiac axis: no significant stenosis SMA: no significant stenosis EMERSON: Moderate stenosis at the origin Right renal vessels: no significant stenosis Left renal vessels: no significant stenosis Infrarenal aorta: Dilatation of the abdominal aorta measuring up to 30 x 30 mm with nonocclusive thrombus again seen. Pelvic Vessels: R. Common iliac artery: Mild stenosis R. External iliac artery: Mild stenosis R. Internal iliac artery: Moderate stenosis L. Common iliac artery: Mild stenosis L. External iliac artery: Mild stenosis L. Internal iliac artery: Mild stenosis Right Lower Extremity: R. Common femoral artery: Moderate multifocal stenosis. R. Profunda femoris artery: Moderate to severe stenosis at the origin R. Superficial femoral artery: Occluded proximally R. Popliteal artery: Reconstituted via branches of the deep femoral artery. Severe multifocal stenosis. R. Anterior tibial artery: Diminutive distally without definite runoff at the ankle. R. Tibioperoneal trunk: Moderate stenosis R. Posterior tibial artery: Mild stenosis R. Peroneal artery: no significant stenosis R. Dorsalis pedis artery: Diminutive R. Plantar artery: no significant stenosis Left Lower Extremity: L. Common femoral artery: Moderate stenosis just proximal to the bifurcation L. Profunda femoris artery: no significant stenosis L. Superficial femoral artery: Patent stent. Moderate to severe stenosis proximally and distally to stent. L. Popliteal artery: Moderate to severe stenosis L. Anterior tibial artery: Diminutive distally L. Tibioperoneal trunk: no significant stenosis L. Posterior tibial artery: no significant stenosis L. Peroneal artery: no significant stenosis L. Dorsalis pedis artery: Diminutive L. Plantar artery: no significant stenosis NON-VASCULAR FINDINGS: Partially imaged right upper lobe consolidation new from 05/09/2023. Bilateral lower lobe bronchial wall thickening. No pleural effusion. 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 Imaged heart size is normal. No pericardial effusion. Normal angiographic appearance of liver. Cholelithiasis without CT evidence of cholecystitis. Normal angiographic appearance the spleen, pancreas, and bilateral adrenal glands. Kidneys enhance symmetrically. Bilateral renal cysts. No hydronephrosis or nephrolithiasis. Large and small bowel are normal caliber. Diverticulosis without evidence of diverticulitis. Appendix is normal. Duodenal diverticula. No abdominal or pelvic lymphadenopathy. Urinary bladder is underdistended. Prostate is enlarged. Postsurgical changes from posterior instrumented L4-L5 spinal fusion. Severe L5-S1 degenerative disc disease. No suspicious osseous lesion. Bilateral lower extremity edema. Surgical clips in the left lower extremity. IMPRESSION: 1. Right superficial femoral artery occlusion with reconstitution of the right popliteal artery via branches of the deep femoral artery. 2. Patent left superficial femoral artery stent. 3. Bilateral lower extremity peripheral artery disease as described above with 2-vessel runoff to the ankles bilaterally. 4. Dilatation of the abdominal aorta measuring up to 30 x 30 mm with nonocclusive mural thrombus. 5. New partially imaged right upper lobe consolidation, which may represent pneumonia. Recommend follow-up CT chest in 3 months to document resolution. Recommend follow up of the Incidental right upper lobe consolidation Additional Imaging in [address] chest. Dictated by: Bandar Cary MD The radiology attending physician has personally reviewed this study, and had reviewed and/or edited this written report and agrees with it. Electronically signed by: Jesus Rowell M.D. us Yumiko Reed NP IMG CT PROCEDURES Final Resul t * US Arterial Duplex Lower Extremity Bilateral (11/02/2024 9:50 AM [facility]) Anatomical Region Laterality Modality Vascular Bilateral Ultrasound 11/02/2024 12:5 9 PM [facility] Narrative 11/02/2024 12:59 PM [facility] [employer] Date 11/02/2024 INDICATION: Lower extremity claudication COMPARISON: None Description: The arterial vasculature of both lower extremities evaluated with duplex and color flow imaging. In the right leg there are areas of apparent intermittent occlusion of the superficial femoral artery both proximally and in the mid thigh. There is reconstitution distally and the popliteal, posterior tibial anterior tibial, and peroneal arteries appear to be patent. Velocities remain uniform. In the left leg velocity is mildly elevated common femoral artery 239 cm/s. Superficial femoral and popliteal arteries are patent. Flow is noted to be monophasic throughout the left leg. The popliteal and trifurcation vessels are patent although there is elevation of velocity at the origins of the posterior tibial and peroneal arteries consistent with greater than 50% stenosis. CONCLUSION: 1. Intermittent segments of occlusion in the right superficial femoral artery 2. Probable stenoses of greater than 50% at the left common femoral artery and at the origins of the posterior tibial and peroneal arteries. Electronically signed by: Dusty Guardado MD Procedure Note Dusty Guardado MD - 11/02/2024 Date 11/02/2024 INDICATION: Lower extremity claudication COMPARISON: None Description: The arterial vasculature of both lower extremities evaluated with duplex and color flow imaging. In the right leg there are areas of apparent intermittent occlusion of the superficial femoral artery both proximally and in the mid thigh. There is reconstitution distally and the popliteal, posterior tibial anterior tibial, and peroneal arteries appear to be patent. Velocities remain uniform. In the left leg velocity is mildly elevated common femoral artery 239 cm/s. Superficial femoral and popliteal arteries are patent. Flow is noted to be monophasic throughout the left leg. The popliteal and trifurcation vessels are patent although there is elevation of velocity at the origins of the posterior tibial and peroneal arteries consistent with greater than 50% stenosis. CONCLUSION: 1. Intermittent segments of occlusion in the right superficial femoral artery 2. Probable stenoses of greater than 50% at the left common femoral artery and at the origins of the posterior tibial and peroneal arteries. Electronically signed by: Dusty Guardado MD us Shabana Negron MD IMG US PROCEDURES Final Resu lt * ECG 12 lead (10/20/2024 1:48 PM [facility]) us Yumiko Reed [employer] ECG ORDERABLES Final Result * CTA Lower Extremity Left (10/15/2024 5:43 PM [facility]) Anatomical Region Laterality Modality Lower Extremities Left Computed Tomog jordan 10/15/2024 6:50 PM [facility] Impressions 10/15/2024 6:50 PM [facility] 1. No evidence of left inguinal hematoma or acute pseudoaneurysm. 2. Large noncalcified atherosclerotic plaque in the image infrarenal aorta causing at least 70% narrowing of the aortic lumen. 3. 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 Multifocal severe stenoses are seen throughout the left lower extremity artery as detailed above. 2 vessel runoff to the left foot via posterior tibial and peroneal artery. Anterior tibialis artery is not opacified at the foot. 4. Diffuse soft tissue edema of the left extremity. Electronically signed by: Barrera Rick M.D. Narrative 10/15/2024 6:50 PM [facility] EXAMINATION: CT ANGIOGRAPHY OF THE LEFT LOWER EXTREMITIES WITHOUT AND WITH CONTRAST HISTORY: Leg swelling, recent arterial access TECHNIQUE: CT angiography of the left lower extremities was performed prior and following the uneventful intravenous administration of 97 ml Optiray-350. Vascular 3D images were generated on a dedicated workstation and also reviewed. COMPARISON: No prior FINDINGS: There is a large noncalcified plaque in the partially imaged infrarenal aorta causing 60-70% narrowing of the abdominal aorta. L. Common iliac artery: Atherosclerotic calcifications without significant stenosis. L. External iliac artery: Atherosclerotic calcifications causing mild stenosis. L. Internal iliac artery: Atherosclerotic calcifications causing multifocal moderate stenosis. L. Common femoral artery: Atherosclerotic calcifications and tortuosity and irregularity with a focal approaching distally with surrounding calcifications likely. No evidence of surrounding hemorrhage or new pseudo-aneurysm. L. Profunda femoris artery: There is occlusion/severe stenosis at the origin with reconstitution distally. L. Superficial femoral artery: There is severe stenosis at the origin prior to the endovascular stent. There is a patent endovascular stent in the proximal portion. Severe atherosclerotic calcifications within the mid to distal segment causing multifocal up to stenosis. L. Popliteal artery: Multifocal moderate to severe stenosis. L. Anterior tibial artery: Multifocal posterior stenosis. A small caliber is seen distally which faintly seen at the ankle and not opacified at the ankle.. L. Tibioperoneal trunk: Multifocal severe stenosis at its origin. L. Posterior tibial artery: Moderate stenosis at its origin. L. Peroneal artery: Multifocal moderate stenosis proximally. L. Dorsalis pedis artery: Not opacified L. Plantar artery: no significant stenosis NON-VASCULAR FINDINGS: Surgical clips are seen in the medial aspect of the lower extremity. There is mild diffuse subcutaneous edema. There is no fluid collection. Procedure Note Barrera Martins MD - 10/15/2024 EXAMINATION: CT ANGIOGRAPHY OF THE LEFT LOWER EXTREMITIES WITHOUT AND WITH CONTRAST HISTORY: Leg swelling, recent arterial access TECHNIQUE: CT angiography of the left lower extremities was performed prior and following the uneventful intravenous administration of 97 ml Optiray-350. Vascular 3D images were generated on a dedicated workstation and also reviewed. COMPARISON: No prior FINDINGS: There is a large noncalcified plaque in the partially imaged infrarenal aorta causing 60-70% narrowing of the abdominal aorta. L. Common iliac artery: Atherosclerotic calcifications without significant stenosis. L. External iliac artery: Atherosclerotic calcifications causing mild stenosis. L. Internal iliac artery: Atherosclerotic calcifications causing multifocal moderate stenosis. L. Common femoral artery: Atherosclerotic calcifications and tortuosity and irregularity with a focal approaching distally with surrounding calcifications likely. No evidence of surrounding hemorrhage or new pseudo-aneurysm. L. Profunda femoris artery: There is occlusion/severe stenosis at the origin with reconstitution distally. L. Superficial femoral artery: There is severe stenosis at the origin prior to the endovascular stent. There is a patent endovascular stent in the proximal portion. Severe atherosclerotic calcifications within the mid to distal segment causing multifocal up to stenosis. L. Popliteal artery: Multifocal moderate to severe stenosis. L. Anterior tibial artery: Multifocal posterior stenosis. A small caliber is seen distally which faintly seen at the ankle and not opacified at the ankle.. L. Tibioperoneal trunk: Multifocal severe stenosis at its origin. L. Posterior tibial artery: Moderate stenosis at its origin. L. Peroneal artery: Multifocal moderate stenosis proximally. L. Dorsalis pedis artery: Not opacified L. Plantar artery: no significant stenosis NON-VASCULAR FINDINGS: Surgical clips are seen in the medial aspect of the lower extremity. There is mild diffuse subcutaneous edema. There is no fluid collection. IMPRESSION: 1. No evidence of left inguinal hematoma or acute pseudoaneurysm. 2. Large noncalcified atherosclerotic plaque in the image infrarenal aorta causing at least 70% narrowing of the aortic lumen. 3. 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 Multifocal severe stenoses are seen throughout the left lower extremity artery as detailed above. 2 vessel runoff to the left foot via posterior tibial and peroneal artery. Anterior tibialis artery is not opacified at the foot. 4. Diffuse soft tissue edema of the left extremity. Electronically signed by: Barrera Rick M.D. Arianne Elmore MD IMG CT PROCEDURES Final Re sult * US VEIN DUPLEX LOWER EXTREMITY LEFT LIMITED, UNILATERAL (10/15/2024 4:11 PM [facility]) Anatomical Region Laterality Modality Vascular Left Ultrasound 10/16/2024 5:33 PM [facility] Impressions 10/16/2024 5:33 PM [facility] 1. Normal venous duplex scan examination of the left lower extremity. Electronically signed by: Abdifatah Perez M.D. Narrative 10/16/2024 5:33 PM [facility] DATE: 10/15/2024 3:25 PM EXAM: Venous duplex imaging of left lower extremity. INDICATION: Pain and swelling. COMPARISON: None available. The left common femoral vein, femoral vein, popliteal vein, peroneal veins and posterior tibial veins were all assessed for compressibility and patency. FINDINGS: Left leg: The image quality is good. The veins are compressible throughout. There is phasic flow that augments normally. There is no reflux. There is no lymphadenopathy or cyst formation. Duplex images demonstrate no evidence of filling defects in the major deep veins of the left lower extremity. Right leg: The right common femoral vein is patent. Procedure Note Abdifatah Perez MD - 10/16/2024 DATE: 10/15/2024 3:25 PM EXAM: Venous duplex imaging of left lower extremity. INDICATION: Pain and swelling. COMPARISON: None available. The left common femoral vein, femoral vein, popliteal vein, peroneal veins and posterior tibial veins were all assessed for compressibility and patency. FINDINGS: Left leg: The image quality is good. The veins are compressible throughout. There is phasic flow that augments normally. There is no reflux. There is no lymphadenopathy or cyst formation. Duplex images demonstrate no evidence of filling defects in the major deep veins of the left lower extremity. Right leg: The right common femoral vein is patent. IMPRESSION: 1. Normal venous duplex scan examination of the left lower extremity. Electronically signed by: Abdifatah Perez M.D. Arianne Elmore MD IMG US PROCEDURES Final Re sult * Troponin T high-sensitivity 2-hour (10/15/2024 3:34 PM [facility]) Trop T hs 12 <=22 ng/L Comment: Interpretive Data For further hscTnT resources including the diagnostic algorithm and an aid in interpretation, copy and paste this link: https://nrl.testcatalog.org/show/[email or web address] Current Interpretive Data last revised 2020. Trop T hs delta -2 ng/L [facility] Trop T hs interp Insignificant [facility] Blood 10/15/2024 3:34 PM [facility] 10/15/2024 3:43 PM [facility] Leodan Ahumada MD LAB BLOOD ORDERABLES Final Result [facility] [address] Department [place] [address] * XR Chest PA Lateral 2 Views (10/15/2024 1:42 PM [facility]) Anatomical Region Laterality Modality Body, Chest N/A Computed Radiogr aphy 10/15/2024 1:48 PM [facility] Impressions 10/15/2024 2:37 PM [facility] 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 Unchanged fracturing of the most superior wire. Transcatheter aortic valve replacement. Streaky left basilar atelectasis. No pneumothorax or pleural effusion. Stable cardiomediastinal silhouette. Dictated by: Alin Chavez MD The radiology attending physician has personally reviewed this study, and had reviewed and/or edited this written report and agrees with it. 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 Unchanged fracturing of the most superior wire. Transcatheter aortic valve replacement. Streaky left basilar atelectasis. No pneumothorax or pleural effusion. Stable cardiomediastinal silhouette. Dictated by: Alin Chavez MD The radiology attending physician has personally reviewed this study, and had reviewed and/or edited this written report and agrees with it. Electronically signed by: Jian Natarajan M.D., Ph.D us Arianne Elmore MD IMG XR PROCEDURES Final Re sult * Troponin T high-sensitivity series (baseline, 2hr, 4hr, 6hr) (10/15/2024 1:05 PM [facility]) Pathologist [facility] Trop T hs 14 <=22 ng/L Comment: Interpretive Data For further hscTnT resources including the diagnostic algorithm and an aid in interpretation, copy and paste this link: https://nrl.testcatalog.org/show/[email or web address] Current Interpretive Data last revised 2020. Blood 10/15/2024 1:05 PM [facility] 10/15/2024 1:35 PM [facility] Arianne Elmore MD LAB BLOOD ORDERABLES Final Result [facility] [address] Department [place] [address] * eGFR (10/15/2024 1:05 PM [facility]) Pathologist [facility] eGFR >90 >=60 mL/min/1. 73 m2 Comment: Interpretive Data Reference Interval Normal >/= 90 mL/min/1.73m2 Mildly decreased* 60 - 89 mL/min/1.73m2 Mildly to moderately decreased 45 - 59 mL/min/1.73m2 Moderately to severely decreased 30 - 44 mL/min/1.73m2 Severely decreased 15 - 29 mL/min/1.73m2 Kidney Failure < 15 mL/min/1.73m2 *Relative to young adult level Estimated glomerular filtration rate is determined by the 2020 CKD-EPI equation recommended by the National Kidney Foundation (A Unifying Approach to GFR Estimation: Recommendations of the NKF-ASK Task Force on Reassessing the Inclusion of Race in Diagnosing Kidney Disease, JASN 202). The CKD-EPI equation should not be used for patients with unstable renal function and has not been validated in children and those over 70. Current interpretive data was last reviewed 2021. Blood 10/15/2024 1:05 PM [facility] 10/15/2024 1:35 PM [facility] us Arianne Elmore MD LAB BLOOD ORDERABLES Final Result [facility] [address] Department [place] [address] * Differential, auto (10/15/2024 1:05 PM [facility]) Neutrophil abs 6.0 1.5 - 6.5 K/cumm Imm gran abs 0.1 0.0 - 0.1 K/cumm [facility] Lymphocyte abs 1.6 0.8 - 3.3 K/cumm [facility] Monocyte abs 0.8 0.2 - 0.8 K/cumm [facility] Eosinophil abs 0.3 0.0 - 0.5 K/cumm [facility] Basophil abs 0.1 0.0 - 0.1 K/cumm [facility] Neutrophil pct 68.6 % [facility] Comment: Interpretive Data Percent cell count reference ranges are not reported, since discordance with absolute values may lead to misinterpretation of CBC data. Current Interpretive Data was last revised on 2018. Imm gran pct 0.7 % [facility] Comment: Interpretive Data Percent cell count reference ranges are not reported, since discordance with absolute values may lead to misinterpretation of CBC data. Current Interpretive Data was last revised on 2018. Lymphocyte pct 18.0 % [facility] Comment: Interpretive Data Percent cell count reference ranges are not reported, since discordance with absolute values may lead to misinterpretation of CBC data. Current Interpretive Data was last revised on 2018. Monocyte pct 8.6 % [facility] Comment: Interpretive Data Percent cell count reference ranges are not reported, since discordance with absolute values may lead to misinterpretation of CBC data. Current Interpretive Data was last revised on 2018. Eosinophil pct 3.1 % [facility] Comment: Interpretive Data Percent cell count reference ranges are not reported, since discordance with absolute values may lead to misinterpretation of CBC data. Current Interpretive Data was last revised on 2018. Basophil pct 1.0 % [facility] Comment: Interpretive Data Percent cell count reference ranges are not reported, since discordance with absolute values may lead to misinterpretation of CBC data. Current Interpretive Data was last revised on 2018. Blood 10/15/2024 1:05 PM [facility] 10/15/2024 1:35 PM [facility] us Arianne Elmore MD LAB BLOOD ORDERABLES Final Result [facility] [address] Department [place] [address] * (ABNORMAL) CBC with auto differential (10/15/2024 1:05 PM [facility]) WBC 8.7 3.8 - 9.9 K/cumm Hgb 12.9(L) 13.0 - 17.5 g/dL [facility] Hct 41.2 38.9 - 50.3 % [facility] Plt 181 150 - 400 K/cumm [facility] MPV 12.1 9.1 - 12.3 fL [facility] RBC 4.11(L) 4.30 - 5.80 M/cumm [facility] MCV 100.2(H) 81.3 - 96.4 fL [facility] MCH 31.4 27.1 - 33.3 pg [facility] MCHC 31.3(L) 32.3 - 35.7 g/dL [facility] RDW CV 14.5 11.1 - 14.9 % [facility] RDW SD 53.2(H) 35.7 - 48.1 fL [facility] NRBC abs 0.00 0.00 - 0.01 K/cumm [facility] Blood (Blood, Venous) 10/15/2024 1:05 PM [facility] 10/15/2024 1:35 PM [facility] us Arianne Elmore MD LAB BLOOD ORDERABLES Final Result [facility] [address] Department [place] [address] * (ABNORMAL) Comprehensive metabolic panel (10/15/2024 1:05 PM [facility]) Sodium 142 135 - 145 mmol/L Potassium, pl 4.4 3.3 - 4.9 mmol/L [facility] Chloride 105 97 - 110 mmol/L [facility] CO2 27 22 - 32 mmol/L [facility] Anion gap 10 2 - 15 mmol/L [facility] BUN 17 6 - 25 mg/dL [facility] Creatinine 0.68(L) 0.80 - 1.30 mg/dL [facility] Glucose 110 70 - 199 mg/dL [facility] Comment: Interpretive Data Fasting glucose >/= 126 mg/dl is diagnostic for diabetes. Fasting is defined as no caloric intake for at least 8 hours. Fasting glucose between 100 mg/dl to 125 mg/dl is diagnostic of prediabetes. In a patient with classic symptoms of hyperglycemia or hyperglycemic crisis, a random glucose >/= 200 mg/dl is diagnostic for diabetes. In the absence of unequivocal hyperglycemia, results should be confirmed by repeat testing. The classification and Diagnosis of Diabetes Diabetes Care 2021; 46: S19-S40. Current interpretive data was last revised 2022. Calcium 9.4 8.5 - 10.3 mg/dL [facility] Bilirubin, total 0.2 0.1 - 1.2 mg/dL [facility] Protein, pl 6.9 6.5 - 8.5 g/dL [facility] Albumin 3.8 3.5 - 5.0 g/dL [facility] Alk phos 93 40 - 130 Units/L [facility] ALT 8 7 - 55 Units/L [facility] AST 16 10 - 50 Units/L [facility] Comment:Slightly Hemolyzed S pecimen Blood 10/15/2024 1:05 PM [facility] 10/15/2024 1:35 PM [facility] Arianne Elmore MD LAB BLOOD ORDERABLES Final Result Performing Organization Address City/[facility]/ZIP Co de Phone Number [facility] [address] Department [place] [address] * ECG 12 lead (10/15/2024 12:45 PM [facility]) 10/15/2024 12:4 5 PM [facility] Narrative [facility] - 10/17/2024 8:35 AM [facility] Vent Rate: 53 bpm RR Interval: 1112 msec NV Interval: 146 msec QRS Duration: 110 msec QT Interval: 431 msec QTC Interval: 415 msec P-R-T [place]: 5 - 11 - 119 degrees IMPRESSION: SINUS BRADYCARDIA INCOMPLETE RIGHT BUNDLE-BRANCH BLOCK LATERAL T-WAVE INVERSION, CONSIDER ISCHEMIA ABNORMAL ECG Electronically Signed By: Ovi Velez MD us Arianne Elmore MD ECG ORDERABLES Edited Res ult - Final Performing Organization Address City/[facility]/ZIP Co de Phone Number [facility] [employer] [facility] * eGFR (10/03/2024 4:41 AM [facility]) eGFR 86 >=60 mL/min/1. 73 m2 Comment: Interpretive Data Reference Interval Normal >/= 90 mL/min/1.73m2 Mildly decreased* 60 - 89 mL/min/1.73m2 Mildly to moderately decreased 45 - 59 mL/min/1.73m2 Moderately to severely decreased 30 - 44 mL/min/1.73m2 Severely decreased 15 - 29 mL/min/1.73m2 Kidney Failure < 15 mL/min/1.73m2 *Relative to young adult level Estimated glomerular filtration rate is determined by the 2020 CKD-EPI equation recommended by the National Kidney Foundation (A Unifying Approach to GFR Estimation: Recommendations of the NKF-ASK Task Force on Reassessing the Inclusion of Race in Diagnosing Kidney Disease, JASN 2020). The CKD-EPI equation should not be used for patients with unstable renal function and has not been validated in children and those over 70. Current interpretive data was last reviewed 2021. Blood 10/03/2024 4:41 AM [facility] 10/03/2024 5:28 AM [facility] us María Shook MD LAB BLOOD ORDERABLES Final Res ult [facility] [address] Department [place] [address] * (ABNORMAL) Differential, auto (10/03/2024 4:41 AM [facility]) Neutrophil abs 5.9 1.5 - 6.5 K/cumm Imm gran abs 0.0 0.0 - 0.1 K/cumm [facility] Lymphocyte abs 1.1 0.8 - 3.3 K/cumm [facility] Monocyte abs 0.9(H) 0.2 - 0.8 K/cumm [facility] Eosinophil abs 0.2 0.0 - 0.5 K/cumm [facility] Basophil abs 0.1 0.0 - 0.1 K/cumm [facility] Neutrophil pct 72.0 % [facility] Comment: Interpretive Data Percent cell count reference ranges are not reported, since discordance with absolute values may lead to misinterpretation of CBC data. Current Interpretive Data was last revised on 2018. Imm gran pct 0.5 % [facility] Comment: Interpretive Data Percent cell count reference ranges are not reported, since discordance with absolute values may lead to misinterpretation of CBC data. Current Interpretive Data was last revised on 2018. Lymphocyte pct 13.3 % [facility] Comment: Interpretive Data Percent cell count reference ranges are not reported, since discordance with absolute values may lead to misinterpretation of CBC data. Current Interpretive Data was last revised on 2018. Monocyte pct 11.4 % [facility] Comment: Interpretive Data Percent cell count reference ranges are not reported, since discordance with absolute values may lead to misinterpretation of CBC data. Current Interpretive Data was last revised on 2018. Eosinophil pct 1.8 % [facility] Comment: Interpretive Data Percent cell count reference ranges are not reported, since discordance with absolute values may lead to misinterpretation of CBC data. Current Interpretive Data was last revised on 2018. Basophil pct 1.0 % [facility] Comment: Interpretive Data Percent cell count reference ranges are not reported, since discordance with absolute values may lead to misinterpretation of CBC data. Current Interpretive Data was last revised on 2018. Blood 10/03/2024 4:41 AM [facility] 10/03/2024 5:31 AM [facility] María Shook MD LAB BLOOD ORDERABLES Final Res ult Performing Organization Address City/[facility]/ZIP Co de Phone Number [facility] [address] Department [employer] [place], [place] [id number] * Thyroid Function Economy (10/03/2024 4:41 AM [facility]) Pathologist [facility] TSH 1.21 0.30 - 4.20 mcIUnit/mL Blood 10/03/2024 4:41 AM [facility] 10/03/2024 5:28 AM [facility] María Shook MD LAB BLOOD ORDERABLES Final Res ult [facility] [address] Department [place] [employer] [place] [address] * (ABNORMAL) CBC with auto differential (10/03/2024 4:41 AM [facility]) Pathologist [facility] WBC 8.2 3.8 - 9.9 K/cumm Hgb 13.4 13.0 - 17.5 g/dL [facility] Hct 42.2 38.9 - 50.3 % [facility] Plt 103(L) 150 - 400 K/cumm [facility] MPV 12.4(H) 9.1 - 12.3 fL [facility] RBC 4.30 4.30 - 5.80 M/cumm [facility] MCV 98.1(H) 81.3 - 96.4 fL [facility] MCH 31.2 27.1 - 33.3 pg [facility] MCHC 31.8(L) 32.3 - 35.7 g/dL [facility] RDW CV 14.5 11.1 - 14.9 % [facility] RDW SD 52.1(H) 35.7 - 48.1 fL [facility] NRBC abs 0.00 0.00 - 0.01 K/cumm [facility] Blood 10/03/2024 4:41 AM [facility] 10/03/2024 5:31 AM [facility] us María Shook MD LAB BLOOD ORDERABLES Final Res ult [facility] [address] Department [place] [address] * Basic metabolic panel (10/03/2024 4:41 AM [facility]) Sodium 141 135 - 145 mmol/L Potassium, pl 4.7 3.3 - 4.9 mmol/L [facility] Chloride 105 97 - 110 mmol/L [facility] CO2 27 22 - 32 mmol/L [facility] Anion gap 9 2 - 15 mmol/L [facility] BUN 18 6 - 25 mg/dL [facility] Creatinine 0.83 0.80 - 1.30 mg/dL [facility] Glucose 80 70 - 199 mg/dL [facility] Comment: Interpretive Data Fasting glucose >/= 126 mg/dl is diagnostic for diabetes. Fasting is defined as no caloric intake for at least 8 hours. Fasting glucose between 100 mg/dl to 125 mg/dl is diagnostic of prediabetes. In a patient with classic symptoms of hyperglycemia or hyperglycemic crisis, a random glucose >/= 200 mg/dl is diagnostic for diabetes. In the absence of unequivocal hyperglycemia, results should be confirmed by repeat testing. The classification and Diagnosis of Diabetes Diabetes Care 2021; 46: S19-S40. Current interpretive data was last revised 2022. Calcium 9.0 8.5 - 10.3 mg/dL [facility] Blood 10/03/2024 4:41 AM [facility] 10/03/2024 5:28 AM [facility] us María Shook MD LAB BLOOD ORDERABLES Final Res ult Performing Organization Address [facility] Co de Phone Number [facility] [address] [facility] [employer] [place], [place] [id number] * (ABNORMAL) POCT Activated clotting time, low range (10/02/2024 6:55 PM [facility]) ACT 174(H) 123 - 168 sec Blood 10/02/2024 6:55 PM [facility] 10/02/2024 6:55 PM [facility] us María Shook MD LAB POCT ORDERABLES - DEVICE F inal Result Performing Organization Address [facility] de Phone Number [facility] [address] [place] [address] * (ABNORMAL) POCT Activated clotting time, low range (10/02/2024 6:32 PM [facility]) ACT 182(H) 123 - 168 sec Blood 10/02/2024 6:32 PM [facility] 10/02/2024 6:32 PM [facility] us María Shook MD LAB POCT ORDERABLES - DEVICE F inal Result Performing Organization Address [facility] Co de Phone Number [facility] [address] Department of [employer] [place], [place] [id number] * (ABNORMAL) POCT Activated clotting time, low range (10/02/2024 5:56 PM [facility]) ACT 198(H) 123 - 168 sec Blood 10/02/2024 5:56 PM [facility] 10/02/2024 5:56 PM [facility] Timoteo Lorenzo MD LAB POCT ORDERABLES - DE VICE Final Result Performing Organization Address City/[facility] Co de Phone Number [facility] [address] Department [place] [employer] [place] [address] * (ABNORMAL) POCT Activated clotting time, low range (10/02/2024 4:51 PM [facility]) ACT 266(H) 123 - 168 sec Blood 10/02/2024 4:51 PM [facility] 10/02/2024 4:51 PM [facility] Timoteo Lorenzo MD LAB POCT ORDERABLES - DE VICE Final Result Performing Organization Address [facility] Co de Phone Number [facility] [address] Department of [employer] [place], [place] [id number] * IVUS NON-COR 1ST VESSEL, REVENDVAS FEMPOP UN WPTA [id number], CYLINDER FILLER LITHOTRIPSY ILIAC-FEM/POP ARTERY [id number], ANGIOGRAPHY UNILATERAL EXTREMITY S&I [id number] (10/02/2024 3:48 PM [facility]) Anatomical Region Laterality Modality X-Ray Angiograph y Narrative 10/19/2024 11:51 AM [facility] Card[facility] [address] [facility], [id number] [place] [address], [id number] Aortoiliofemoral Angiography Procedure Report 84 year old male with severe claudication who presents for planned L SFA and popliteal artery [employer] intervention CC: Severe bilateral lower extremity claudication Access: 6 Fr antegrade L SFA Catheter:Quick Cross Injection:left superficial femoral artery and left popliteal artery Closure: manual compression Anticoagulation: 10,000 units heparin Sedation: 2 mg Versed, 100 mcg fentanyl After verbal and written consent were obtained the patient was brought to the cardiac catheterization laboratory. There were prepped and draped in sterile fashion and a 6 [place]an sheath was inserted antegrade in the left superficial femoral artery artery using the modified Seldinger technique under ultrasound and fluoroscopic guidance. Angiography was performed through the antegrade L SFA sheath. We proceeded with planned L SFA and popliteal artery [employer] intervention. Several attempts were made with antegrade wire escalation across the popliteal [employer], with eventual antegrade dissection and re-entry using an 0.035 Cross Lead wire through a Quick Cross microcatheter (unsuccessful attempts using Glidewire Advantage, Mongo, and Command wires). Serial balloon angioplasty was performed up to 5mm balloons with poor expansion within the heavily calcified popliteal [employer]. Shockwave IVL was performed using 5mm and 6 mm balloons with subsequent approved expansion. DCB was performed using a 5 x 120 drug coated balloon. Subsequent angiography demonstrated widely patent SFA and popliteal with several small non-flow limiting dissections. We elected to accept this result and stenting of this area was deferred as this would involve infra-popliteal segments of the artery. The L SFA sheath was secured in place to be removed using manual compression in the recovery area once the ACT < 200. The patient tolerated the procedure well without complaints and was transferred to the recovery area in stable condition. Findings: Left lower extremty: Common femoral artery: 80% focal stenosis Superficial femoral artery: Patent stent with severe diffuse ISR and a 90% focal stenosis, severe diffuse disease distally Popliteal artery: severe diffuse disease with 100% long segment occlusion with reconstitution distally via collaterals Tibioperoneal trunk: 50% diffuse stenosis Anterior tibial artery: 100% occluded proximally Posterior tibial artery: 80% ostial stenosis Peroneal artery: mild disease A/P: - Successful L SFA-popliteal [employer] intervention with CYLINDER FILLER, Shockwave IVL, and DCB - Continue DAPT with plavix 75mg daily and aspirin 81mg daily for at least 6 months post intervention - Plan for manual sheath pull of antegrade L SFA sheath once ACT < 200 Shabana Negron MD 10/02/2024 us Shabana Negron MD CV CARDIAC CATH PROCEDURES F inal Result * (ABNORMAL) POCT Activated clotting time, low range (10/02/2024 3:27 PM [facility]) ACT 344(H) 123 - 168 sec Blood 10/02/2024 3:27 PM [facility] 10/02/2024 3:27 PM [facility] Timoteo Lorezno MD LAB POCT ORDERABLES - DE VICE Final Result Performing Organization Address [facility] Phone Number [facility] [address] [facility] [employer] [place], [place] [id number] * (ABNORMAL) POCT Activated clotting time, low range (10/02/2024 2:49 PM [facility]) ACT >400(H) 123 - 168 sec Blood 10/02/2024 2:49 PM [facility] 10/02/2024 2:49 PM [facility] Result [facility] María Shook MD LAB POCT ORDERABLES - DEVICE F inal Result Performing Organization Address [facility] Phone Number [facility] [address] [facility] [employer] [place] [address] * (ABNORMAL) POCT Activated clotting time, low range (10/02/2024 2:18 PM [facility]) ACT 397(H) 123 - 168 sec Blood 10/02/2024 2:18 PM [facility] 10/02/2024 2:18 PM [facility] Timoteo Lorenzo MD LAB POCT ORDERABLES - DE VICE Final Result Performing Organization Address [facility] Phone Number [facility] [address] [facility] [employer] [place] [address] * ECG 12 lead (10/02/2024 12:30 PM [facility]) 10/02/2024 12:3 0 PM [facility] Narrative [facility] - 10/02/2024 2:40 PM [facility] Vent Rate: 57 bpm RR Interval: 1046 msec NV Interval: 151 msec QRS Duration: 113 msec QT Interval: 437 msec QTC Interval: 431 msec P-R-T [place]: 58 - -6 - 122 degrees IMPRESSION: SINUS BRADYCARDIA WITH OCCASIONAL VENTRICULAR PREMATURE COMPLEXES MODERATE INTRAVENTRICULAR CONDUCTION DELAY [110+ ms QRS DURATION] NONSPECIFIC ST \T\ T-WAVE ABNORMALITY ABNORMAL ECG Electronically Signed By: Steven Cespedes MD PhD us Timoteo Lorenzo MD ECG ORDERABLES Final Re sult [facility] * (ABNORMAL) CBC with auto differential (09/21/2024 3:00 PM [facility]) WBC 7.4 3.4 - 10.8 x10E3/uL [facility] - 01 RBC 4.66 4.14 - 5.80 x10E6/uL [facility] - 01 Hgb 14.7 13.0 - 17.7 g/dL [facility] - 01 Hct 44.4 37.5 - 51.0 % [facility] - 01 MCV 95 79 - 97 fL [facility] - 01 MCH 31.5 26.6 - 33.0 pg [facility] - 01 MCHC 33.1 31.5 - 35.7 g/dL [facility] - 01 Rdw 13.5 11.6 - 15.4 % [facility] - 01 Platelets 126(L) 150 - 450 x10E3/uL [facility] - 01 Comment:Large platelets were observed. Neutrophils pct 59 Not Estab. % [facility] - 01 Lymphs pct 26 Not Estab. % [facility] - 01 Monocytes pct 9 Not Estab. % [facility] - 01 Eosinophils pct 4 Not Estab. % [facility] - 01 Basophil pct 1 Not Estab. % [facility] - 01 Neutrophil abs 4.4 1.4 - 7.0 x10E3/uL [facility] - 01 Lymphs (Absolute) 1.9 0.7 - 3.1 x10E3/uL [facility] - 01 Monocyte abs 0.7 0.1 - 0.9 x10E3/uL [facility] - 01 Eosinophils, abs 0.3 0.0 - 0.4 x10E3/uL [facility] - 01 Basophils, abs 0.1 0.0 - 0.2 x10E3/uL [facility] - 01 Immature Granulocytes 1 Not Estab. % [facility] - 01 Immature Grans (Abs) 0.1 0.0 - 0.1 x10E3/uL [facility] - 01 Hematology Comments: Note: [facility] - 01 Comment:Verified by microsco pic examination. Blood 09/21/2024 3:00 PM [facility] 09/21/2024 Narrative [facility] - 09/22/2024 10:10 AM [facility] Performed at: [address] [id number] Coding Coordinator: Mookie Evans PhD, Phone: [phone] us Shabana Negron MD LAB BLOOD ORDERABLES Final R esult Performing Organization Address [facility] Co de Phone Number [facility] * Protime-INR (09/21/2024 3:00 PM [facility]) INR 0.9 0.9 - 1.2 [facility] - Comment: Reference interval is for non-anticoagulated patients. Suggested INR therapeutic range for Vitamin K antagonist therapy: Standard Dose (moderate intensity therapeutic range): 2.0 - 3.0 Higher intensity therapeutic range 2.5 - 3.5 PT 10.5 9.1 - 12.0 sec [facility] - 01 Blood 09/21/2024 3:00 PM [facility] 09/21/2024 Narrative [facility] - 09/22/2024 8:11 AM [facility] Performed at: [address] [id number] Coding Coordinator: Mookie Evans PhD, Phone: [phone] us Shabana Negron MD LAB BLOOD ORDERABLES Final R esult Performing Organization Address [facility] Co de Phone Number [facility] * (ABNORMAL) Basic metabolic panel (09/21/2024 3:00 PM [facility]) Glucose 116(H) 70 - 99 mg/dL [facility] - 01 BUN 25 8 - 27 mg/dL [facility] - 01 Creatinine, Serum 0.84 0.76 - 1.27 mg/dL [facility] - 01 eGFR 86 >59 mL/min/1.7 3 [facility] - 01 BUN/creat ratio 30(H) 10 - 24 [facility] - 01 Sodium 143 134 - 144 mmol/L [facility] - 01 Potassium, sr 4.6 3.5 - 5.2 mmol/L [facility] - 01 Chloride 105 96 - 106 mmol/L [facility] - 01 CO2 26 20 - 29 mmol/L [facility] - 01 Calcium 9.2 8.6 - 10.2 mg/dL [facility] - 01 Blood 09/21/2024 3:00 PM [facility] 09/21/2024 Narrative [facility] - 09/22/2024 8:11 AM [facility] Performed at: [facility] [address] [id number] Coding Coordinator: Mookie Evans PhD, Phone: [phone] us Shabana Negron MD LAB BLOOD ORDERABLES Final R esult [facility] - 01 from Last [address] [facility]ARE [facility]ICARE 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 ADVANCE DIRECTIVE 06/01/2019 5:38 AM * Full Code (Latest Code Status on File) Date Activated Date Inactivated Comments 11/13/2024 2:00 PM 11/13/2024 8:56 PM * Full Code Date Activated Date Inactivated Comments 10/02/2024 8:04 PM 10/03/2024 5:45 PM * Full Code Date Activated Date Inactivated Comments 09/02/2024 5:07 PM 09/03/2024 12:17 AM * Full Code Date Activated Date Inactivated Comments 06/15/2022 6:55 PM 06/25/2022 3:48 PM * Full Code Date Activated Date Inactivated Comments 06/15/2022 6:06 PM 06/15/2022 6:55 PM 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 Relationship Specialty Start Date End Date Fazal Davis MD [address] [place] [id number] PCP - General 01/11/17 Ayan Saunders MD [address] [place] [id number] [place], [place] [id number] Consulting Physician Pulmonary Disease 02/09/19 Markos Jane MD [address] [place] [address] [place] [address] Consulting Physician Cardiology 02/09/19 Andrew Bonilla MD [address] [address] Consulting Physician General Surgery 06/02/19 Shabana Negron MD [address] [place] [address] Consulting Physician Cardiology 10/03/24 Seferino Evangelista MD [address] [place] [address] Consulting Physician Cardiothoracic Surgery 10/30/24
--- OUTSIDE RECORDS SUMMARY | 2024-12-08 11:49 | XMS_ITS | Clinical Summary ---
Author Organization [facility] Address [address] [place] [address] Care Team Providers Care Accounts Payable Or Receivable Clerk Name Role Phone Fazal Davis MD Primary Care Provider Ayan Saunders MD Unavailable Markos Jane MD Unavailable Andrew Bonilla MD Unavailable Shabana Negron MD Unavailable Seferino Evangelista MD Unavailable [phone] Allergies Active Allergy Reactions Criticality Noted Date Comments Penicillins Hives Medium 60 years ago; cefazolin was administered in 2018 & 2021 Medications cyanocobalamin (Vitamin B-12) 1,000 [...] Date Peripheral arterial disease 10/02/2024 Atherosclerosis of nulato ar teries of extremities with intermittent claudication, [...] size Assessment & Plan (10/20/2019 1:30 PM PEST CONTROL APPLICATOR): 10/21/[address] All nodule stable All nodules 4 mm or less in size Assessment & Plan (10/21/2018 4:19 PM PEST CONTROL APPLICATOR): No change in current CT scan and I the lymph nodes in the mediastinum or in lung nodules. Smoking cessation discussed Assessment & Plan (10/29/2017 1:02 PM PEST CONTROL APPLICATOR): Stable with issue, repeat CT one year Chronic obstructive pulmonary disease ([facility]) 09/17/2016 Overview (01/18/2017): Chronic obstructive [...] AM Assessment & Plan (10/20/2019 1:28 PM PEST CONTROL APPLICATOR): Mild, has tried inhalers in the past and did not feel they benefitted him Will reassess one year, if breathing problems call us to reevaluate Yearly flu shot Assessment & Plan (10/21/2018 4:18 PM PEST CONTROL APPLICATOR): There has been deterioration in peak flows [...] recommended. Assessment & Plan (10/29/2017 1:04 PM PEST CONTROL APPLICATOR): Stable on p.r.n. albuterol, understands there are [...] aid in tobacco cessation including the cold Joshua method, nicotine replacement therapy, and pharmacologic therapy were discussed. Electronic cigarettes and acupuncture were also discussed. Assessment & Plan (10/20/2019 1:27 PM PEST CONTROL APPLICATOR): One pack per day Discussed reduction in rates from heart disease, lung disease and cancer if he quits smoking He will consider the advice but is not ready to commit to quitting At age 79 no longer qualifies for yearly CT Assessment & Plan (10/21/2018 4:19 PM PEST CONTROL APPLICATOR): Again reaffirms that he has no interest in quitting smoking and he enjoys smoking a great deal. Assessment & Plan (10/29/2017 1:01 PM PEST CONTROL APPLICATOR): Still one pack per day, nose quitting would reduce the chances of of heart disease, lung disease and cancer CT one year Mediastinal lymphadenopathy 08/24/2015 Overview (10/20/2019): Resolved CT 10/21/2018 Assessment & Plan (10/20/2019 1:29 PM PEST CONTROL APPLICATOR): Resolved CT 10/19/2018 Assessment & Plan (10/21/2018 4:20 PM PEST CONTROL APPLICATOR): No change on today's chest CT. 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 I made no change in his excellent medical regimen today, except to resume Plavix 75 mg daily and I decreased aspirin to 81 mg daily. I asked him to follow up with me annually, or sooner if needed. I again advised him to diet and exercise regularly, and to stop smoking completely. Encounters Date Type Department Care Team Description 11/16/2024 11:45 AM PEST CONTROL APPLICATOR Office Visit Cardiovascular and Thoracic Surgery [address] [place] [phone] Seferino Evangelista MD Atherosclerosis of nulato arteries of extremities with intermittent claudication, bilateral legs (HCC); PAD (peripheral artery disease) (HCC); Atherosclerosis of abdominal aorta (HCC) 11/13/2024 10:30 AM PEST CONTROL APPLICATOR - 11/13/2024 12:50 PM PEST CONTROL APPLICATOR Surgery [facility] [address] [place] [phone] Shabana Negron MD ANGIOGRAPHY - BILATERAL EXTREMITY S&I [id number] 11/13/2024 8:37 AM PEST CONTROL APPLICATOR - 11/13/2024 4:50 PM PEST CONTROL APPLICATOR Hospital Encounter [facility] [address] [place] [phone] Shabana Negron MD Atherosclerosis of nulato arteries of extremities with intermittent claudication, bilateral legs (HCC) Discharge Disposition: Discharge to home or self care 11/04/2024 Telephone [facility] Medical [facility] Cardiology [address] [place] [phone] Yumiko Reed, DEMARIO Test Results 11/02/2024 10:25 AM PEST CONTROL APPLICATOR - 11/02/2024 11:59 PM PEST CONTROL APPLICATOR Hospital Encounter [facility] - Imaging [address] [place] [phone] Atherosclerosis of abdominal aorta (HCC) Discharge Disposition: Discharge to home or self care 11/02/2024 10:00 AM PEST CONTROL APPLICATOR Office Visit [facility] Medical [facility] Cardiology [address] [place] [phone] Shabana Negron MD Peripheral arterial disease (HCC) (Primary Dx) 11/02/2024 7:56 AM PEST CONTROL APPLICATOR - 11/02/2024 11:59 PM PEST CONTROL APPLICATOR Hospital Encounter [facility] Vascular Lab [address] [place] [address] Atherosclerosis of nulato arteries of extremities with intermittent claudication, bilateral legs (HCC) Discharge Disposition: Discharge to home or self care 10/26/[address], [place] [address] Yumiko Reed NP 10/21/[address], [place] [address] Shabana Negron MD 10/21/[address], [place] [address] Yumiko Reed NP 10/21/[address], [place] [address] Shabana Negron MD AIF Scheduling 10/20/2024 12:30 PM [facility] Office Visit [address] [place] [address] Yumiko Reed, VEGETABLE LOADER Atherosclerosis of abdominal aorta (HCC) (Primary Dx); Edema of left lower leg; PAD (peripheral artery disease) (HCC); Coronary artery disease involving nulato coronary artery of nulato heart without angina pectoris; S/P TAVR (transcatheter aortic valve replacement); Essential hypertension; Bradycardia 10/16/[address], [place] [address] Shabana Negron MD follow up ER 10/15/2024 2:30 PM PEST CONTROL APPLICATOR - 10/15/2024 8:02 PM [facility] Emergency [facility] Emergency Department [address] [place] [phone] Arianne Elmore MD Leg swelling (Primary Dx) Discharge Disposition: Discharge to home or self care 10/15/2024 Telephone [facility] Cardiology [address] [place] [address] [place] [phone] Shabana Negron MD Leg Swelling 10/09/2024 Telephone [facility] Cardiology [address] [place] [phone] Shabana Negron MD 10/02/2024 12:55 PM PEST CONTROL APPLICATOR - 10/02/2024 3:15 PM PEST CONTROL APPLICATOR Surgery [facility] [address] [place] [phone] Timoteo Lorenzo MD ANGIOGRAPHY - UNILATERAL EXTREMITY S&I [id number] 10/02/2024 11:41 AM PEST CONTROL APPLICATOR - 10/03/2024 1:40 PM PEST CONTROL APPLICATOR Hospital Encounter [address] [phone] Timoteo Lorenzo MD Tallam, Rama D., MD PVD (peripheral vascular disease) ([facility]) Discharge Disposition: Discharge to home or self care 09/14/2024 Telephone [facility] Cardiology [address] [place] [phone] Shabana Negron MD AIF Scheduling from Last 3 Months Immunizations Immunization Administration Dates Next Due Influenza, Quad, Adjuvantated, Intramuscular Influenza, Quadrivalent, Hig h Dose, Preservative Free, Intrr 11/03/2021 Moderna SARS-CoV-2 Monovalent Vaccination (12+ Y RS) 12/15/2020,11/17/2020 Surgical History Surgery Date Site/Laterality Comments CORONARY ARTERY BYPASS GRAFT 10/14/1987 - 10/13/1988 Coronary Artery Bypass Graft LAMINECTOMY Laminectomy POLYPECTOMY Polypectomy CARDIAC STENT PLACEMENT Stented by Lucinda in the past, at least 3 SPINAL FUSION AORTIC VALVE REPLACEMENT 06/22/2022 TAVR- 26 [facility] Medical History Medical History Date Comments Chronic obstructive pulmonary disease (HCC) COPD Cholelithiasis Cholelithiasis Hypertension Sinusitis Aortic stenosis Valvular Heart D isease (AoS) Diverticulosis Diverticulosis Rhinitis Mediastinal lymphadenopathy Tobacco abuse Coronary artery disease Family History Medical History Relation Name Comments Other Father Laryngeal carci noma; Throat cancer Father Cancer, throat ; Other Mother of multipl e medical problems with oxygen dependency; Cancer Sister Relation Name Status Comments Father Mother Sister Social History Tobacco Use Types Packs/Day Years [...] 06/19/2022 How often do you attend chur or congregation services? Never 06/19/2022 Do you belong to any clubs o r organizations such as restoration groups, unions, fraternal or athletic groups, or [...] on file Legal Sex Male 2:41 PM PEST CONTROL APPLICATOR Gender Identity Not on file Sexual Orientation Not on file Obstetrics History Last Filed Vital Signs Vital Sign Reading Time Taken Comments Blood Pressure 118/68 11/16/2024 12:31 PM PEST CONTROL APPLICATOR Pulse 58 11/16/2024 12:31 PM PEST CONTROL APPLICATOR Regu lar Temperature 36.3 C (97.4 F) 10/15/2024 12:34 PM PEST CONTROL APPLICATOR Respiratory Rate 16 11/16/2024 12:31 PM PEST CONTROL APPLICATOR Oxygen Saturation 90% 11/13/2024 4:00 PM PEST CONTROL APPLICATOR Inhaled Oxygen Concentration - - Weight 81.6 kg (180 lb) 11/16/2024 12:31 PM PEST CONTROL APPLICATOR Height 172.7 cm (5' 8 ) 11/16/2024 12:31 PM PEST CONTROL APPLICATOR Body Mass Index 27.37 11/16/2024 12:31 PM PEST CONTROL APPLICATOR Plan of Treatment Health Maintenance Due Date Last Done Comments Depression Screening 1940 Hepatitis B Screening 1958 Pneumococcal vaccine 65+ (1 of 2 - PCV) 1959 Zoster Vaccine (1 of 2) 1990 Well Visit 65+ 2005 Covid-19 Vaccine ( season) 2024 09/13/2021, 12/15/2020, 11/17/2020 Influenza Vaccine (#1) 2024 2, 11/03/2021, 07/30/2020 Fall Risk Assessment 10/03/2025 10/03/2024 DTaP/Tdap/Td Vaccine (2 - Td or Tdap) 09/05/2033 Medical Devices Implanted Type Area Finance Effectiveness Manager Device Identifier Shelf Expiration Date Model / Serial / Lot Bard Peripheral Vascular [id number] Lifestent 6mm 6fr 80mm 130cm Self Expand Catheter Helical - [id number] Implanted:Qty: 1 on 06/01/2019 by Andrew Bonilla MD at [facility] Aneurysm Coils Left: Femoral Bard Peripheral Vascular [id number] 10/18/2019 [id number] / / [id number] Description:Implanted Left S uperficial Femoral Artery White Vascular 49486-23 Starclose Se Od6 Fr Clip Vascular Device Closure Nitinol Sterile - [id number] Implanted:Qty: 1 on 06/01/2019 by Andrew Bonilla MD at [facility] Other - see comments Right: Femoral White Vascular [id number] 02/12/2020 22149-7 1 / / [id number] Description:Vascular Closure Device implanted Right Femoral Artery [employer] 14fr Manta Vascular Closure Device 2156 - S0 - [id number] Implanted:Qty: 1 on 06/15/2022 by Ovi Velez MD at [facility] Other - see comments Right: Femoral [employer] 05/06/2023 2156 / 0 / [id number] Description:Right femoral ar samson Coello Lifesciences Valve Heart 26mm Marsha 3 Transcatheter [id number] - [id number] - [id number] Implanted:Qty: 1 on 06/22/2022 by Ovi Velez MD at [facility] Prosthetic Valve Coello Lifesciences 01/16/2025 [id number] / [id number] [employer] Marj Stent Drug Eluting S Megatron Us Mr 5.99p66vn [id number] - S1 - [id number] Implanted:Qty: 1 on 06/15/2022 by Ovi Velez MD at [facility] Stent N/A: Coronary Artery [employer] Marj 10/30/2022 [id number] / 1 / [id number] Description:CARMELO to RCA [employer] Marj Stent Drug Eluting S Megatron Us Mr 5.65u29ic [id number] - S1 - [id number] Implanted:Qty: 1 on 06/15/2022 by Ovi Velez MD at [facility] Stent N/A: Coronary Artery [employer] Marj 11/29/2022 [id number] / 1 / [id number] Bard Peripheral Vascular Stent Peripheral Over The Wire Lifestent [id number] cm Nitinol [id number] - S0 - [id number] Implanted:Qty: 1 on 11/13/2024 by Shabana Negron MD at [facility] Stent N/A: Femoral Bard Peripheral Vascular 06/30/2027 [id number] / 0 / [id number] Bard Peripheral Vascular Stent Peripheral Over The Wire Lifestent [id number] m Nitinol [id number] - S0 - [id number] Implanted:Qty: 1 on 11/13/2024 by Shabana Negron MD at [facility] Stent N/A: Femoral Bard Peripheral Vascular 06/09/2027 [id number] / 0 / [id number] [employer] Vascade 6/7fr Bioabsorbable Vascular System Compression Collagen [id number] - S0 - [id number] Implanted:Qty: 1 on 06/22/2022 by Ovi Velez MD at [facility] [employer] 03/14/2024 [id number] / 0 / [id number] Procedures Procedure Name Priority Date/Time Associated Diagnosis Comments POCT ACTIVATED CLOTTING TIME, LOW RANGE Routine 11/13/2024 1:25 PM PEST CONTROL APPLICATOR PERIPHERAL RUN OFF CATH Routine 11/13/2024 1:24 PM PEST CONTROL APPLICATOR Atherosclerosis of nulato arteries of extremities with intermittent claudication, bilateral legs (HCC) REVENDVAS FEMPOP UN WSTN 15114 Routine 11/13/2024 1:24 PM PEST CONTROL APPLICATOR Atherosclerosis of nulato arteries of extremities with intermittent claudication, bilateral legs (HCC) LIGHTING DESIGNER LITHOTRIPSY ILIAC-FEM/POP ARTERY C9764 Routine 11/13/2024 1:24 PM PEST CONTROL APPLICATOR Atherosclerosis of nulato arteries of extremities with intermittent claudication, bilateral legs (HCC) POCT ACTIVATED CLOTTING TIME, LOW RANGE Routine 11/13/2024 12:21 PM PEST CONTROL APPLICATOR CTA ABDOMINAL AORTA AND BILATERAL ILIOFEMORAL RUNOFF Schedule Routine, Read Routine (OP Routine) 11/02/2024 12:00 PM PEST CONTROL APPLICATOR Atherosclerosis of abdominal aorta (HCC) VL US ARTERIAL DUPLEX LOWER EXTREMITY BILATERAL Schedule Routine, Read Routine (OP Routine) 11/02/2024 9:50 AM PEST CONTROL APPLICATOR Atherosclerosis of nulato arteries of extremities with intermittent claudication, bilateral legs (HCC) ECG 12-LEAD Routine 10/20/2024 1:48 PM PEST CONTROL APPLICATOR Bradycardia CTA LOWER EXTREMITY LEFT NOT FOR ISCHEMIA ED Urgent/IP Urgent 10/15/2024 5:43 PM PEST CONTROL APPLICATOR US VEIN DUPLEX LOWER EXTREMITY LEFT LIMITED ED Urgent/IP Urgent 10/15/2024 4:11 PM PEST CONTROL APPLICATOR TROPONIN T HIGH-SENSITIVITY 2-HOUR Timed 10/15/2024 3:34 PM PEST CONTROL APPLICATOR XR CHEST PA LATERAL 2 VIEWS ED 10/15/2024 1:42 PM PEST CONTROL APPLICATOR EGFR STAT 10/15/2024 1:05 PM PEST CONTROL APPLICATOR DIFFERENTIAL AUTO STAT 10/15/2024 1:0 5 PM PEST CONTROL APPLICATOR COMPREHENSIVE METABOLIC PANEL STAT 10/15/2024 1:05 PM PEST CONTROL APPLICATOR TROPONIN T HIGH-SENSITIVITY SERIES (BASELINE, 2HR, 4HR, 6HR) STAT 10/15/2024 1:05 PM PEST CONTROL APPLICATOR CBC WITH AUTO DIFFERENTIAL STAT 10/15/2024 1:05 PM PEST CONTROL APPLICATOR ECG 12-LEAD STAT 10/15/2024 12:45 PM PEST CONTROL APPLICATOR EGFR Routine 10/03/2024 4:41 AM PEST CONTROL APPLICATOR DIFFERENTIAL AUTO Routine 10/03/2024 4:4 1 AM PEST CONTROL APPLICATOR THYROID FUNCTION CASCADE Routine 10/03/2024 4:41 AM PEST CONTROL APPLICATOR CBC WITH AUTO DIFFERENTIAL Routine 10/03/2024 4:41 AM PEST CONTROL APPLICATOR BASIC METABOLIC PANEL Routine 10/03/2024 4:41 AM PEST CONTROL APPLICATOR POCT ACTIVATED CLOTTING TIME, LOW RANGE Routine 10/02/2024 6:55 PM PEST CONTROL APPLICATOR POCT ACTIVATED CLOTTING TIME, LOW RANGE Routine 10/02/2024 6:32 PM PEST CONTROL APPLICATOR POCT ACTIVATED CLOTTING TIME, LOW RANGE Routine 10/02/2024 5:56 PM PEST CONTROL APPLICATOR POCT ACTIVATED CLOTTING TIME, LOW RANGE Routine 10/02/2024 4:51 PM PEST CONTROL APPLICATOR ANGIOGRAPHY UNILATERAL EXTREMITY S&I [id number] Routine 10/02/2024 3:48 PM PEST CONTROL APPLICATOR PVD (peripheral vascular disease) (HCC) LIGHTING DESIGNER LITHOTRIPSY ILIAC-FEM/POP ARTERY C9764 Routine 10/02/2024 3:48 PM PEST CONTROL APPLICATOR PVD (peripheral vascular disease) (HCC) REVENDVAS FEMPOP UN WPTA 34499 Routine 10/02/2024 3:48 PM PEST CONTROL APPLICATOR PVD (peripheral vascular disease) (HCC) IVUS NON-COR 1ST VESSEL Routine 10/02/2024 3:48 PM PEST CONTROL APPLICATOR PVD (peripheral vascular disease) (HCC) POCT ACTIVATED CLOTTING TIME, LOW RANGE Routine 10/02/2024 3:27 PM PEST CONTROL APPLICATOR POCT ACTIVATED CLOTTING TIME, LOW RANGE Routine 10/02/2024 2:49 PM PEST CONTROL APPLICATOR POCT ACTIVATED CLOTTING TIME, LOW RANGE Routine 10/02/2024 2:18 PM PEST CONTROL APPLICATOR ECG 12-LEAD Routine 10/02/2024 12:30 PM PEST CONTROL APPLICATOR PVD (peripheral vascular disease) (HCC) PROTIME-INR Routine 09/21/2024 3:00 PM PEST CONTROL APPLICATOR PVD (peripheral vascular disease) (HCC) CBC WITH AUTO DIFFERENTIAL Routine 09/21/2024 3:00 PM PEST CONTROL APPLICATOR PVD (peripheral vascular disease) (HCC) BASIC METABOLIC PANEL Routine 09/21/2024 3:00 PM PEST CONTROL APPLICATOR PVD (peripheral vascular disease) (HCC) from Last 3 Months Results * (ABNORMAL) POCT Activated clotting time, low range (11/13/2024 1:25 PM PEST CONTROL APPLICATOR) ACT 280(H) 123 - 168 sec Blood 11/13/2024 1:25 PM PEST CONTROL APPLICATOR 11/13/2024 1:25 PM PEST CONTROL APPLICATOR us Shabana Negron MD LAB POCT ORDERABLES - DEVICE Final Result [facility] [place] [id number] [facility], [facility] Department [place] [address] * LIGHTING DESIGNER LITHOTRIPSY ILIAC-FEM/POP ARTERY C9764, REVENDVAS FEMPOP UN WSTN 89137, PERIPHERAL RUN OFF CATH(11/13/2024 1:24 PM PEST CONTROL APPLICATOR) Anatomical Region Laterality Modality X-Ray Angiograph y Narrative 11/26/2024 4:49 PM PEST CONTROL APPLICATOR Images from the original result were not included. [facility] Cardiology [address] [id number], [address] Aortoiliofemoral Angiography Procedure Report Mr. Rainey is an 84 year old male with peripheral arterial disease and bilateral [place] class II claudication. He is referred for peripheral angiography and possible intervention. Procedures Performed: Abdominal aortography Bilateral lower extremity angiography Crossover from left common femoral to right superficial femoral artery with 6F destination sheath Shockwave lithotripsy of the right superficial femoral artery LIGHTING DESIGNER and self expanding stent placement x 2 [...] draped in sterile fashion and a 6 Moroccan sheath was inserted in the left femoral [...] right using a 0.035 x 260 mm Williamson wire. 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 LIGHTING DESIGNER was performed with 3.0 x 100 and [...] clotting time, low range (11/13/2024 12:21 PM PEST CONTROL APPLICATOR) [facility] ACT >400(H) 123 - 168 sec Blood 11/13/2024 12:2 1 PM PEST CONTROL APPLICATOR 11/13/2024 12:21 PM PEST CONTROL APPLICATOR us Shabana Negron MD LAB POCT ORDERABLES - DEVICE Final Result [facility] [address] [place] [address] * CTA Abdominal Aorta And Bilateral Iliofemoral Runoff (11/02/2024 12:00 PM PEST CONTROL APPLICATOR) Anatomical Region Laterality Modality Body Bilateral Computed Tomogra phy 11/02/2024 2:28 PM PEST CONTROL APPLICATOR Impressions 11/02/2024 3:08 PM PEST CONTROL APPLICATOR 1. Right superficial femoral artery occlusion with [...] Jesus Rowell M.D. Narrative 11/02/2024 3:08 PM PEST CONTROL APPLICATOR EXAMINATION: CT ANGIOGRAPHY OF THE ABDOMEN, PELVIS, [...] Duplex Lower Extremity Bilateral (11/02/2024 9:50 AM PEST CONTROL APPLICATOR) Anatomical Region Laterality Modality Vascular Bilateral Ultrasound 11/02/2024 12:5 9 PM PEST CONTROL APPLICATOR Narrative 11/02/2024 12:59 PM PEST CONTROL APPLICATOR Date 11/02/2024 INDICATION: Lower extremity claudication COMPARISON: [...] arteries. Electronically signed by: Dusty Guardado MD Shabana Negron MD IMG US PROCEDURES Final Resu lt * ECG 12 lead (10/20/2024 1:48 PM PEST CONTROL APPLICATOR) us Yumiko Reed NP ECG ORDERABLES Final Result * CTA Lower Extremity Left (10/15/2024 5:43 PM PEST CONTROL APPLICATOR) Anatomical Region Laterality Modality Lower Extremities Left Computed Tomog jordan 10/15/2024 6:50 PM PEST CONTROL APPLICATOR Impressions 10/15/2024 6:50 PM PEST CONTROL APPLICATOR 1. No evidence of left inguinal hematoma [...] Barrera Rick M.D. Narrative 10/15/2024 6:50 PM PEST CONTROL APPLICATOR EXAMINATION: CT ANGIOGRAPHY OF THE LEFT LOWER [...] EXTREMITY LEFT LIMITED, UNILATERAL (10/15/2024 4:11 PM PEST CONTROL APPLICATOR) Anatomical Region Laterality Modality Vascular Left Ultrasound 10/16/2024 5:3 3 PM PEST CONTROL APPLICATOR Impressions 10/16/2024 5:33 PM PEST CONTROL APPLICATOR 1. Normal venous duplex scan examination of the left lower extremity. Electronically signed by: Abdifatah Perez M.D. Narrative 10/16/2024 5:33 PM PEST CONTROL APPLICATOR DATE: 10/15/2024 3:25 PM EXAM: Venous duplex [...] extremity. Electronically signed by: Abdifatah Perez M.D. us Arianne Elmore MD IMG US PROCEDURES Final Re sult * Troponin T high-sensitivity 2-hour (10/15/2024 3:34 PM PEST CONTROL APPLICATOR) Trop T hs 12 <=22 ng/L Comment: Interpretive Data For further hscTnT resources including the diagnostic algorithm and an aid in interpretation, copy and paste this link: https://[email or web address].testcatalog.org/show/[email or web address] Current Interpretive Data last revised 2020. Trop T hs delta -2 ng/L [facility] Trop T hs interp Insignificant [facility] Blood 10/15/2024 3:34 PM PEST CONTROL APPLICATOR 10/15/2024 3:43 PM PEST CONTROL APPLICATOR Leodan Ahumada MD LAB BLOOD ORDERABLES Final Result [facility] [address] Department [place] [address] * XR Chest PA Lateral 2 Views (10/15/2024 1:42 PM PEST CONTROL APPLICATOR) Anatomical Region Laterality Modality Body, Chest N/A Computed Radiogr aphy 10/15/2024 1:48 PM PEST CONTROL APPLICATOR Impressions 10/15/2024 2:37 PM PEST CONTROL APPLICATOR Postsurgical changes of coronary artery bypass grafting [...] Natarajan M.D., Ph.D Narrative 10/15/2024 2:37 PM PEST CONTROL APPLICATOR EXAMINATION: XR CHEST PA LATERAL 2 VIEWS [...] Electronically signed by: Jian Natarajan M.D., Ph.D Arianne Elmore MD IMG XR PROCEDURES Final Re sult * Troponin T high-sensitivity series (baseline, 2hr, 4hr, 6hr) (10/15/2024 1:05 PM PEST CONTROL APPLICATOR) Trop T hs 14 <=22 ng/L Comment: Interpretive Data For further hscTnT resources including the diagnostic algorithm and an aid in interpretation, copy and paste this link: [email or web address] Current Interpretive Data last revised 2020. Blood 10/15/2024 1:05 PM PEST CONTROL APPLICATOR 10/15/2024 1:35 PM PEST CONTROL APPLICATOR us Arianne Elmore MD LAB BLOOD ORDERABLES Final Result [facility] [address] Department of Laboratories [place], [place] [id number] * eGFR (10/15/2024 1:05 PM PEST CONTROL APPLICATOR) eGFR >90 >=60 mL/min/1. 73 m2 Comment: [...] last reviewed 2021. Blood 10/15/2024 1:05 PM PEST CONTROL APPLICATOR 10/15/2024 1:35 PM PEST CONTROL APPLICATOR us Arianne Elmore MD LAB BLOOD ORDERABLES Final Result [facility] [address] Department [place] [address] * Differential, auto (10/15/2024 1:05 PM PEST CONTROL APPLICATOR) Neutrophil abs 6.0 1.5 - 6.5 K/cumm Imm gran abs 0.1 0.0 - 0.1 K/cumm [facility] Lymphocyte abs 1.6 0.8 - 3.3 K/cumm [facility] Monocyte abs 0.8 0.2 - 0.8 K/cumm [facility] Eosinophil abs 0.3 0.0 - 0.5 K/cumm [facility] Basophil abs 0.1 0.0 - 0.1 K/cumm [facility] Neutrophil pct 68.6 % [facility] Comment: Interpretive Data Percent cell count reference ranges are not reported, since discordance with absolute values may lead to misinterpretation of CBC data. Current Interpretive Data was last revised on 2018. Imm gran pct 0.7 % [facility] Comment: Interpretive Data Percent cell count reference ranges are not reported, since discordance with absolute values may lead to misinterpretation of CBC data. Current Interpretive Data was last revised on 2018. Lymphocyte pct 18.0 % [facility] Comment: Interpretive Data Percent cell count reference ranges are not reported, since discordance with absolute values may lead to misinterpretation of CBC data. Current Interpretive Data was last revised on 2018. Monocyte pct 8.6 % [facility] Comment: Interpretive Data Percent cell count reference ranges are not reported, since discordance with absolute values may lead to misinterpretation of CBC data. Current Interpretive Data was last revised on 2018. Eosinophil pct 3.1 % [facility] Comment: Interpretive Data Percent cell count reference ranges are not reported, since discordance with absolute values may lead to misinterpretation of CBC data. Current Interpretive Data was last revised on 2018. Basophil pct 1.0 % [facility] Comment: Interpretive Data Percent cell count reference ranges are not reported, since discordance with absolute values may lead to misinterpretation of CBC data. Current Interpretive Data was last revised on 2018. Blood 10/15/2024 1:05 PM PEST CONTROL APPLICATOR 10/15/2024 1:35 PM PEST CONTROL APPLICATOR Arianne Elmore MD LAB BLOOD ORDERABLES Final Result Performing Organization Address [facility] [place]/[facility]/ZIP Co de Phone Number [facility] [address] Department [place] [address] * (ABNORMAL) CBC with auto differential (10/15/2024 1:05 PM PEST CONTROL APPLICATOR) WBC 8.7 3.8 - 9.9 K/cumm Hgb 12.9(L) 13.0 - 17.5 g/dL [facility] Hct 41.2 38.9 - 50.3 % [facility] Plt 181 150 - 400 K/cumm [facility] MPV 12.1 9.1 - 12.3 fL [facility] RBC 4.11(L) 4.30 - 5.80 M/cumm [facility] MCV 100.2(H) 81.3 - 96.4 fL [facility] MCH 31.4 27.1 - 33.3 pg [facility] MCHC 31.3(L) 32.3 - 35.7 g/dL [facility] RDW CV 14.5 11.1 - 14.9 % [facility] RDW SD 53.2(H) 35.7 - 48.1 fL [facility] NRBC abs 0.00 0.00 - 0.01 K/cumm [facility] Blood (Blood, Venous) 10/15/2024 1:05 PM PEST CONTROL APPLICATOR 10/15/2024 1:35 PM PEST CONTROL APPLICATOR us Arianne Elmore MD LAB BLOOD ORDERABLES Final Result Performing Organization Address [facility] [place]/[facility]/ZIP Co de Phone Number [facility] [address] Department [place] [address] * (ABNORMAL) Comprehensive metabolic panel (10/15/2024 1:05 PM PEST CONTROL APPLICATOR) Sodium 142 135 - 145 mmol/L Potassium, pl 4.4 3.3 - 4.9 mmol/L [facility] Chloride 105 97 - 110 mmol/L [facility] CO2 27 22 - 32 mmol/L [facility] Anion gap 10 2 - 15 mmol/L [facility] BUN 17 6 - 25 mg/dL [facility] Creatinine 0.68(L) 0.80 - 1.30 mg/dL [facility] Glucose 110 70 - 199 mg/dL [facility] Comment: Interpretive Data Fasting glucose >/= 126 [...] 2022. Calcium 9.4 8.5 - 10.3 mg/dL [facility] Bilirubin, total 0.2 0.1 - 1.2 mg/dL [facility] Protein, pl 6.9 6.5 - 8.5 g/dL [facility] Albumin 3.8 3.5 - 5.0 g/dL [facility] Alk phos 93 40 - 130 Units/L [facility] ALT 8 7 - 55 Units/L [facility] AST 16 10 - 50 Units/L [facility] Comment:Slightly Hemolyzed S pecimen Blood 10/15/2024 1:05 PM PEST CONTROL APPLICATOR 10/15/2024 1:35 PM PEST CONTROL APPLICATOR Arianne Elmore MD LAB BLOOD ORDERABLES Final Result [facility] [address] Department [place] [address] * ECG 12 lead (10/15/2024 12:45 PM PEST CONTROL APPLICATOR) 10/15/2024 12:4 5 PM PEST CONTROL APPLICATOR Narrative [facility] - 10/17/2024 8:35 AM PEST CONTROL APPLICATOR Vent Rate: 53 bpm RR Interval: 1112 msec WY Interval: 146 msec QRS Duration: 110 msec QT Interval: 431 msec QTC Interval: 415 msec P-R-T Storden: 5 - 11 - 119 degrees IMPRESSION: SINUS BRADYCARDIA INCOMPLETE RIGHT BUNDLE-BRANCH BLOCK LATERAL T-WAVE INVERSION, CONSIDER ISCHEMIA ABNORMAL ECG Electronically Signed By: Ovi Velez MD us Arianne Elmore MD ECG ORDERABLES Edited Res ult - Final [facility] * eGFR (10/03/2024 4:41 AM PEST CONTROL APPLICATOR) eGFR 86 >=60 mL/min/1. 73 m2 Comment: [...] last reviewed 2021. Blood 10/03/2024 4:41 AM PEST CONTROL APPLICATOR 10/03/2024 5:28 AM PEST CONTROL APPLICATOR us María Shook MD LAB BLOOD ORDERABLES Final Res ult [facility] [address] Department [place] [address] * (ABNORMAL) Differential, auto (10/03/2024 4:41 AM PEST CONTROL APPLICATOR) Neutrophil abs 5.9 1.5 - 6.5 K/cumm Imm gran abs 0.0 0.0 - 0.1 K/cumm [facility] Lymphocyte abs 1.1 0.8 - 3.3 K/cumm [facility] Monocyte abs 0.9(H) 0.2 - 0.8 K/cumm [facility] Eosinophil abs 0.2 0.0 - 0.5 K/cumm [facility] Basophil abs 0.1 0.0 - 0.1 K/cumm [facility] Neutrophil pct 72.0 % [facility] Comment: Interpretive Data Percent cell count reference ranges are not reported, since discordance with absolute values may lead to misinterpretation of CBC data. Current Interpretive Data was last revised on 2018. Imm gran pct 0.5 % [facility] Comment: Interpretive Data Percent cell count reference ranges are not reported, since discordance with absolute values may lead to misinterpretation of CBC data. Current Interpretive Data was last revised on 2018. Lymphocyte pct 13.3 % [facility] Comment: Interpretive Data Percent cell count reference ranges are not reported, since discordance with absolute values may lead to misinterpretation of CBC data. Current Interpretive Data was last revised on 2018. Monocyte pct 11.4 % [facility] Comment: Interpretive Data Percent cell count reference ranges are not reported, since discordance with absolute values may lead to misinterpretation of CBC data. Current Interpretive Data was last revised on 2018. Eosinophil pct 1.8 % [facility] Comment: Interpretive Data Percent cell count reference ranges are not reported, since discordance with absolute values may lead to misinterpretation of CBC data. Current Interpretive Data was last revised on 2018. Basophil pct 1.0 % [facility] Comment: Interpretive Data Percent cell count reference ranges are not reported, since discordance with absolute values may lead to misinterpretation of CBC data. Current Interpretive Data was last revised on 2018. Blood 10/03/2024 4:41 AM PEST CONTROL APPLICATOR 10/03/2024 5:31 AM PEST CONTROL APPLICATOR us María Shook MD LAB BLOOD ORDERABLES Final Res ult Performing Organization Address [facility] [place]/[facility]/ZIP Co de Phone Number [facility] [address] [facility] [email or web address] [place], [place] [id number] * Thyroid Function [place] (10/03/2024 4:41 AM PEST CONTROL APPLICATOR) [facility] TSH 1.21 0.30 - 4.20 mcIUnit/mL Blood 10/03/2024 4:41 AM PEST CONTROL APPLICATOR 10/03/2024 5:28 AM PEST CONTROL APPLICATOR us María Shook MD LAB BLOOD ORDERABLES Final Res ult Performing Organization Address [facility] [place]/[facility] Co de Phone Number [facility] [address] Department [email or web address] [address] * (ABNORMAL) CBC with auto differential (10/03/2024 4:41 AM PEST CONTROL APPLICATOR) [facility] WBC 8.2 3.8 - 9.9 K/cumm Hgb 13.4 13.0 - 17.5 g/dL [facility] Hct 42.2 38.9 - 50.3 % [facility] Plt 103(L) 150 - 400 K/cumm [facility] MPV 12.4(H) 9.1 - 12.3 fL [facility] RBC 4.30 4.30 - 5.80 M/cumm [facility] MCV 98.1(H) 81.3 - 96.4 fL [facility] MCH 31.2 27.1 - 33.3 pg [facility] MCHC 31.8(L) 32.3 - 35.7 g/dL [facility] RDW CV 14.5 11.1 - 14.9 % [facility] RDW SD 52.1(H) 35.7 - 48.1 fL [facility] NRBC abs 0.00 0.00 - 0.01 K/cumm [facility] Blood 10/03/2024 4:41 AM PEST CONTROL APPLICATOR 10/03/2024 5:31 AM PEST CONTROL APPLICATOR María Shook MD LAB BLOOD ORDERABLES Final Res ult [facility] [address] Department [place] [address] * Basic metabolic panel (10/03/2024 4:41 AM PEST CONTROL APPLICATOR) Sodium 141 135 - 145 mmol/L Potassium, pl 4.7 3.3 - 4.9 mmol/L [facility] Chloride 105 97 - 110 mmol/L [facility] CO2 27 22 - 32 mmol/L [facility] Anion gap 9 2 - 15 mmol/L [facility] BUN 18 6 - 25 mg/dL [facility] Creatinine 0.83 0.80 - 1.30 mg/dL [facility] Glucose 80 70 - 199 mg/dL [facility] Comment: Interpretive Data Fasting glucose >/= 126 [...] 2022. Calcium 9.0 8.5 - 10.3 mg/dL [facility] Blood 10/03/2024 4:41 AM PEST CONTROL APPLICATOR 10/03/2024 5:28 AM PEST CONTROL APPLICATOR María Shook MD LAB BLOOD ORDERABLES Final Res ult [facility] [address] Department [place] [address] * (ABNORMAL) POCT Activated clotting time, low range (10/02/2024 6:55 PM PEST CONTROL APPLICATOR) ACT 174(H) 123 - 168 sec Blood 10/02/2024 6:55 PM PEST CONTROL APPLICATOR 10/02/2024 6:55 PM PEST CONTROL APPLICATOR María Shook MD LAB POCT ORDERABLES - DEVICE F inal Result Performing Organization Address City/[facility]/ZIP Co de Phone Number [facility] [address] [facility] [email or web address] [address] * (ABNORMAL) POCT Activated clotting time, low range (10/02/2024 6:32 PM PEST CONTROL APPLICATOR) ACT 182(H) 123 - 168 sec Blood 10/02/2024 6:32 PM PEST CONTROL APPLICATOR 10/02/2024 6:32 PM PEST CONTROL APPLICATOR Mraía Shook MD LAB POCT ORDERABLES - DEVICE F inal Result Performing Organization Address [facility] [place]/[facility] Co de Phone Number [facility] [address] [facility] [email or web address] [address] * (ABNORMAL) POCT Activated clotting time, low range (10/02/2024 5:56 PM PEST CONTROL APPLICATOR) ACT 198(H) 123 - 168 sec Blood 10/02/2024 5:56 PM PEST CONTROL APPLICATOR 10/02/2024 5:56 PM PEST CONTROL APPLICATOR Timoteo Lorenzo MD LAB POCT ORDERABLES - DE VICE Final Result Performing Organization Address [facility] [place]/[facility] Co de Phone Number [facility] [address] [facility] [email or web address] [address] * (ABNORMAL) POCT Activated clotting time, low range (10/02/2024 4:51 PM PEST CONTROL APPLICATOR) ACT 266(H) 123 - 380 sec Blood 10/02/2024 4:51 PM PEST CONTROL APPLICATOR 10/02/2024 4:51 PM PEST CONTROL APPLICATOR us Timoteo Lorenzo MD LAB POCT ORDERABLES - DE VICE Final Result [facility] [address] Department [place] [address] * IVUS NON-COR 1ST VESSEL, REVENDVAS FEMPOP UN WPTA 90089, LIGHTING DESIGNER LITHOTRIPSY ILIAC-FEM/POP ARTERY [id number], ANGIOGRAPHY UNILATERAL EXTREMITY S&I 57550 (10/02/2024 3:48 PM PEST CONTROL APPLICATOR) Anatomical Region Laterality Modality X-Ray Angiograph y Narrative 10/19/2024 11:51 AM PEST CONTROL APPLICATOR [facility] Cardiology [address] [facility], [id number], [address] Aortoiliofemoral Angiography Procedure Report 84 year old male with severe claudication who presents for planned L SFA and popliteal artery TYPING BOOKKEEPER intervention CC: Severe bilateral lower extremity claudication [...] draped in sterile fashion and a 6 Moroccan sheath was inserted antegrade in the left superficial femoral artery artery using the modified Seldinger technique under ultrasound and fluoroscopic guidance. Angiography was performed through the antegrade L SFA sheath. We proceeded with planned L SFA and popliteal artery TYPING BOOKKEEPER intervention. Several attempts were made with antegrade wire escalation across the popliteal TYPING BOOKKEEPER, with eventual antegrade dissection and re-entry using an 0.035 Cross Lead wire through a Quick Cross microcatheter (unsuccessful attempts using Glidewire Advantage, Mongo, and Command wires). Serial balloon angioplasty was performed up to 5mm balloons with poor expansion within the heavily calcified popliteal TYPING BOOKKEEPER. Shockwave IVL was performed using 5mm and [...] mild disease A/P: - Successful L SFA-popliteal TYPING BOOKKEEPER intervention with LIGHTING DESIGNER, Shockwave IVL, and DCB - Continue DAPT with plavix 75mg daily and aspirin 81mg daily for at least 6 months post intervention - Plan for manual sheath pull of antegrade L SFA sheath once ACT < 200 Shabana Negron MD 10/02/2024 us Shabana Negron MD CV CARDIAC CATH PROCEDURES F inal Result * (ABNORMAL) POCT Activated clotting time, low range (10/02/2024 3:27 PM PEST CONTROL APPLICATOR) ACT 344(H) 123 - 168 sec Blood 10/02/2024 3:27 PM PEST CONTROL APPLICATOR 10/02/2024 3:27 PM PEST CONTROL APPLICATOR us Timoteo Lorenzo MD LAB POCT ORDERABLES - DE VICE Final Result [facility] [address] [place] [address] * (ABNORMAL) POCT Activated clotting time, low range (10/02/2024 2:49 PM PEST CONTROL APPLICATOR) ACT >400(H) 123 - 168 sec Blood 10/02/2024 2:49 PM PEST CONTROL APPLICATOR 10/02/2024 2:49 PM PEST CONTROL APPLICATOR María Shook MD LAB POCT ORDERABLES - DEVICE F inal Result Performing Organization Address [facility] [place]/[facility] Co de Phone Number [facility] [address] [facility] [email or web address] [address] * (ABNORMAL) POCT Activated clotting time, low range (10/02/2024 2:18 PM PEST CONTROL APPLICATOR) ACT 397(H) 123 - 168 sec Blood 10/02/2024 2:18 PM PEST CONTROL APPLICATOR 10/02/2024 2:18 PM PEST CONTROL APPLICATOR Timoteo Lorenzo MD LAB POCT ORDERABLES - DE VICE Final Result Performing Organization Address [facility] Phone Number [facility] [address] [email or web address] [address] * ECG 12 lead (10/02/2024 12:30 PM PEST CONTROL APPLICATOR) 10/02/2024 12:3 0 PM PEST CONTROL APPLICATOR Narrative [facility] - 10/02/2024 2:40 PM PEST CONTROL APPLICATOR Vent Rate: 57 bpm RR Interval: 1046 msec WY Interval: 151 msec QRS Duration: 113 msec QT Interval: 437 msec QTC Interval: 431 msec P-R-T Storden: 58 - -6 - 122 degrees IMPRESSION: SINUS BRADYCARDIA WITH OCCASIONAL VENTRICULAR PREMATURE COMPLEXES MODERATE INTRAVENTRICULAR CONDUCTION DELAY [110+ ms QRS DURATION] NONSPECIFIC ST \T\ T-WAVE ABNORMALITY ABNORMAL ECG Electronically Signed By: Steven Cespedes MD PhD Timoteo Lorenzo MD ECG ORDERABLES Final Re sult Performing Organization Address [facility] [place]/[facility] Co de Phone Number [facility] [employer] [facility] * (ABNORMAL) CBC with auto differential (09/21/2024 3:00 PM PEST CONTROL APPLICATOR) WBC 7.4 3.4 - 10.8 x10E3/uL [facility] [...] microsco pic examination. Blood 09/21/2024 3:00 PM PEST CONTROL APPLICATOR 09/21/2024 Narrative [facility] - 09/22/2024 10:10 AM PEST CONTROL APPLICATOR Performed at: 01 - [facility] [address] [id number] Md Ophthalmologist: Mookie Evans PhD, Phone: [phone] us Shabana Negron MD LAB BLOOD ORDERABLES Final [facility] - * Protime-INR (09/21/2024 3:00 PM PEST CONTROL APPLICATOR) Pathologist [facility] INR 0.9 0.9 - 1.2 [facility] - 01 Comment: Reference interval is for non-anticoagulated patients. Suggested INR therapeutic range for Vitamin K antagonist therapy: Standard Dose (moderate intensity therapeutic range): 2.0 - 3.0 Higher intensity therapeutic range 2.5 - 3.5 PT 10.5 9.1 - 12.0 sec [facility] - 01 Blood 09/21/2024 3:00 PM PEST CONTROL APPLICATOR 09/21/2024 Narrative [facility] - 09/22/2024 8:11 AM PEST CONTROL APPLICATOR Performed at: [address] [place] [id number] Md Ophthalmologist: Mookie Evans PhD, Phone: [phone] us Shabana Negron MD LAB BLOOD ORDERABLES Final R esult Performing Organization Address [facility] [place]/[facility] Co de Phone Number [facility] - * (ABNORMAL) Basic metabolic panel (09/21/2024 3:00 PM PEST CONTROL APPLICATOR) Pathologist [facility] Glucose 116(H) 70 - 99 mg/dL [facility] [...] [facility] - 01 Blood 09/21/2024 3:00 PM PEST CONTROL APPLICATOR 09/21/2024 Narrative [facility] - 09/22/2024 8:11 AM PEST CONTROL APPLICATOR Performed at: - [facility] [address] [id number] Md Ophthalmologist: Mookie Evans PhD, Phone: [phone] us Shabana Negron MD LAB BLOOD ORDERABLES Final R esult [facility] - 01 from Last 3 Months Insurance MEDICARE [facility] MEDICARE [place] [facility] MEDICARE [facility] Advance Directives For more information, please contact: [phone] Documents on File Type Date Recorded Patient Chip Machine Operator Expl anation ADVANCE DIRECTIVE 06/01/2019 5:38 AM [...] 6:06 PM 06/15/2022 6:55 PM Care Teams Accounts Payable Or Receivable Clerk Relationship Specialty Start Date End Date Fazal Davis MD [address] [place] [address] PCP - General 01/11/17 Ayan Saunders MD [address] [place], [place] [phone] Consulting Physician Pulmonary Disease 02/09/19 Markos Jane MD [address] [place] [address] Consulting Physician Cardiology 02/09/19 Andrew Bonilla MD [address] [place], [place] [phone] Consulting Physician General Surgery 06/02/19 Shabana Negron MD [address] [place] [address] Consulting Physician Cardiology 10/03/24 Seferino Evangelista MD [address] [place], [place] [phone] Consulting Physician Cardiothoracic Surgery 10/30/24
--- OUTSIDE RECORDS SUMMARY | 2024-12-08 11:49 | XMS_ITS | Clinical Summary ---
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
--- OUTSIDE RECORDS SUMMARY | 2024-12-08 11:49 | XMS_ITS | Encounter Summary ---
Author Organization [facility] Address 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
--- OUTSIDE RECORDS SUMMARY | 2024-12-08 11:49 | XMS_ITS | Encounter Summary ---
Author Organization [facility] Address 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
--- OUTSIDE RECORDS SUMMARY | 2024-12-08 11:49 | XMS_ITS | Clinical Summary ---
Author Organization [facility] Address [address] [place] [address] Care Team Providers Care Online Advertising Analyst Name Role Phone Fazal Davis MD Primary Care Provider Source Comments [facility],non-[facility]ates and Associated Physician Practices is amultiple site organization consisting of ambulatory clinics and hospital sitesin [place], [place], [place] and [place]. This disclosure is being madepursuant to the Care Everywhere program and may not contain all information available regarding this patient. Last updated 18.[facility] [employer] Allergies Active Allergy Reactions Criticality Noted Date [...] therapy. 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 05/22/2019 Overview (07/04/2021): Added automatically from request for surgery [id number] Essential hypertension, benign 01/06/2018 Overview (07/04/2021): Last [...] Plan: Resolved CT 10/19/2018 Coronary arteriosclerosis in [place] artery 01/22 Overview (07/04/2021): CRTOBINY ATHRSCL NATVE [...] Administration Dates Next Due TDAP (7yrs+) 09/05/2023 Family History Medical History Relation Name Comments Asthma Neg Hx CVA Neg Hx Cancer - Breast Neg Hx Cancer - Other Neg Hx Cancer - Skin, Melanoma Neg Hx Cancer - Skin, Non Melanoma Neg Hx Eczema Neg Hx Hemophilia Neg Hx Psoriasis Neg Hx Social History Tobacco Use Types Packs/Day Years [...] Comments Blood Pressure 124/64 09/16/2023 12:26 PM ASSISTANT PROFESSOR OF DIETETICS Pulse 58 09/16/2023 12:26 PM ASSISTANT PROFESSOR OF DIETETICS Temperature 36.5 C (97.7 F) 09/05/2023 2:28 PM ASSISTANT PROFESSOR OF DIETETICS Respiratory Rate 18 09/05/2023 2:28 PM ASSISTANT PROFESSOR OF DIETETICS Oxygen Saturation 95% 09/16/2023 12:26 PM ASSISTANT PROFESSOR OF DIETETICS Inhaled Oxygen Concentration - - Weight 82.8 kg (182 lb 9.6 oz) 09/16/2023 12:26 PM ASSISTANT PROFESSOR OF DIETETICS Height 172.7 cm (5' 8 ) 09/05/2023 2:28 PM ASSISTANT PROFESSOR OF DIETETICS Body Mass Index 27.76 09/05/2023 2:28 PM ASSISTANT PROFESSOR OF DIETETICS Plan of Treatment Health Maintenance Due Date Last Done Comments MEDICARE AWV 12 MONTHS 1940 PNEUMOCOCCAL VACCINE 50+ (1 of 2 - PCV) 1959 ZOSTER VACCINE (1 of 2) 1990 Respiratory Syncytial Virus (RSV) Vaccine Pt: or over 60 yrs (1 - 1-dose 75+ series) 2015 COVID-19 VACCINE (2023-2 5 season) 2024 09/13/2021, 12/15/2020, 11/17/2020 INFLUENZA VACCINE (#1) 2024 2, 07/30/2020 DEPRESSION SCREENING 10/14/2024 09/16/2023 DTAP/TDAP/TD VACCINES (2 - T d or Tdap) 09/05/2033 09/05/2023 HEPATITIS B VACCINE Aged Out No longe r eligible based on patient's age to complete this topic HIB VACCINE Aged Out No longer eligi ble based on patient's age to complete this topic HPV VACCINE Aged Out No longer eligi ble based on patient's age to complete this topic MENINGOCOCCAL (Group B) VACCINE Aged Out No longer eligible b ased on patient's age to complete this topic MENINGOCOCCAL VACCINE Aged Out No lenore olrraine eligible based on patient's age to complete this topic Care Teams Online Advertising Analyst Relationship Specialty Start Date End Date Fazal Davis MD [address] [place] [address] PCP - General 03/12/18
--- OUTSIDE RECORDS SUMMARY | 2024-12-08 11:49 | XMS_ITS | Encounter Summary ---
Author Organization [facility] Address [address] [place] [address] Care Team Providers Care Customer Operations Manager Name Role Phone Fazal Davis MD Primary Care Provider [phone] Encounter Details Date Type Department Care Team (Late st Contact Info) Description 09/23/2018 Lab Requisition [facility] [address] [place] [address] Kendra Underwood MD [address] [facility] [address] DEPT OF DERMATOLOGY [place], [place] [id number] Social History Tobacco Use Types Packs/Day Years [...] Associated Diagnosis Comments DERMPATH SLIDE CONSULT Routine 09/23/2018 12:00 AM DIRECTOR OF SOCIAL SERVICES documented in this encounter Results * DERMPATH SLIDE CONSULT (09/23/2018 12:00 AM DIRECTOR OF SOCIAL SERVICES) Case Report Dermatopathology Report Case: [id number] Authorizing Provider: Kendra Underwood MD Collected: 09/23/2018 12:00 AM Pathologist: Jose Alejandro Song MD Received: 09/23/2018 11:28 AM Specimen: Slide(s), Left superior helix, OSC# [id number] 4:39 PM [facility] Final Diagnosis Specimen A. Slide(s), Left superior helix, [id number]# [id number]: SQUAMOUS CELL CARCINOMA IN SITU, VERRUCOUS-HYPERTROP HIC TYPE; PRESENT AT THE BASE OF THE SPECIMEN (D04.22) (see microscopic description and comment) 4:39 PM [facility] Clinical History Materials received from: [facility]ology [address] [place] [address] Received for [facility] [place] are 1 slide(s) labeled [id number]. Squamous cell carcinoma. All slides returned. Appointment. Date: 09/22/2018. Any additional sections, special stains or immunohistochemical stains performed by our laboratory will be kept here on file. 4:39 PM [facility] Microscopic Description Specimen A. Slide(s), Left superior helix, OSC# [id number]: The epidermis is acanthotic and shows full thickness disorderly maturation of keratinocytes, mitoses at different levels, and dyskeratotic cells. There is overlying parakeratosis and hyperkeratosis. The lesion extends to the base of the biopsy. COMMENT: An invasive squamous cell carcinoma cannot be ruled out. 4:39 PM [facility] Disclaimer An external and internal positive and negative controls are appropriate for the histochemical, immunohistochemical and immunofluorescence stain(s) in this case (if any), except where stated explicitly. The performance characteristics of the stain(s) cited in this report were developed and its performance characteristic determined by the Dermatopathology Laboratory at [facility]. These tests need not be, and therefore are not, approved by the [place] Food and Drug Administration. The tests are used for clinical purposes. Billing Codes Specimen Charges Stain Charges 74259 1 4:39 PM [facility] Embedded Images 4:39 PM [facility] Pathology/Cytolog y SLIDE / Unknown 09/23/2018 09/23/2018 11:28 AM DIRECTOR OF SOCIAL SERVICES Kendra Underwood MD LAB - PATHOLOGY/[facility] DERMATOPATHOLOGY LABORATORY [facility] - Department of Dermatology [address]th [address] [place], [place] [id number] [place] [address] documented in this encounter Visit Diagnoses Not on filedocumented in this encounter Additional Health Concerns Infection Onset Date Last Indicated Resolved Time COVID-19 Under Investigation 09/11/2020 09/11/2020 09/12/2020 7:10 PM DIRECTOR OF SOCIAL SERVICES documented as of this encounter Care Teams Customer Operations Manager Relationship Specialty Start Date End Date Fazal Davis MD [address] [place] [address] PCP - General 03/12/18 documented as of this encounter
== END 2024-12-08 10:11 | disposition home or self-care (01) ==
PROVIDERS: PCP Family Medicine; Visit Provider Physician Assistant Medical
DX: R91.8 Other nonspecific abnormal finding of lung field (principal); J18.1 Lobar pneumonia, unspecified organism; R93.89 Abnormal findings on diagnostic imaging of other specified body structures
CPT/HCPCS: 71250

== ENCOUNTER 2025-09-02 15:23 | Outpatient (CLI) | payer MEDICARE, SELFPAY ==
--- NOTE | ~2025-09-02 | CT_ITS ---
EXAMINATION:CT diagnostic chest wo con DATE: 09/02/2025 15:58 INDICATION: Shortness of breath. Chronic cough. History of coronary artery disease and endovascular aortic valve replacement. TECHNIQUE: Computed tomography (CT) of the chest was performed without intravenous contrast. Automated exposure control and iterative reconstruction technique were employed. The dose-length product (DLP) was 327.17 mGy-cm. COMPARISON: Previous CT chest dated 12/08/2024. FINDINGS: Significant emphysematous changes of lungs. No pulmonary mass or opacity are seen. Platelike atelectasis in the right middle lobe. Postoperative changes of the heart and aortic valve. Ascending aortic aneurysm measuring AP diameter of 4.9 cm is stable. IMPRESSION: 1. Severe emphysematous lungs. Platelike atelectasis of right middle lobe. No significant acute findings. 2. Postoperative changes of the heart and aortic valve. Stable aneurysm of the ascending thoracic aorta measuring maximum AP diameter 4.9 cm. Reviewed, dictated and finalized at location T. GE PERSON IMPRESSION: 1. Severe emphysematous lungs. Platelike atelectasis of right middle lobe. No s ignificant acute findings. 2. Postoperative changes of the heart and aortic valve. Stable aneurysm of the ascending thoracic aorta measuring maximum AP diameter 4.9 cm.
== END 2025-09-02 15:24 | disposition home or self-care (01) ==
LOC: MICIMG 15:24
PROVIDERS: PCP Family Medicine; Visit Provider Nurse Practitioner Family
DX: R06.09 Other forms of dyspnea (principal); R05.3 Chronic cough; J43.9 Emphysema, unspecified; J98.11 Atelectasis; I71.21 Aneurysm of the ascending aorta, without rupture; Z98.890 Other specified postprocedural states
CPT/HCPCS: 71250